=== PATIENT | male | born 1940 | race Caucasian/White ===

== ENCOUNTER → 2022-04-21 | Outpatient (CLI) | payer OTHER ==
[2022-04-21 12:38] LABS: Hematocrit 41.5 % (41.0-53.0); Hemoglobin 13.5 g/dL (13.5-17.5); Mean Corpuscular Hemoglobin 28.2 pg (28.0-32.0); Mean Corpuscular Hgb Conc. 32.4 g/dL (32.0-36.0); Mean Corpuscular Volume 86.8 fL (80.0-100.0); Red Blood Cells 4.78 10^6/uL (4.5-5.90); Red Cell Distribution Width 15.2 % (11.8-14.3); White Blood Cell 8.1 10^3/uL (4.4-10.8)
[2022-04-21 12:45] LABS: Basophils % (manual) 0 (0.0-2.0); Blast Cells 0; Promyelocytes % 0
[2022-04-21 12:51] LABS: Urine Bacteria MANY /hpf (None Seen); Urine Blood TRACE /uL (Negative); Urine Specific Gravity 1.012 (1.001-1.035); Urine WBC 735 /hpf (0 - 3); Urine WBC Clumps PRESENT /hpf (None Seen)
[2022-04-21 13:30] LABS: Albumin 2.8 g/dL (3.4-5.0); Potassium 4.1 mmol/L (3.5-5.1)
[2022-04-21 13:39] LABS: BUN/Creatinine Ratio 32.4; Bilirubin, Total 0.5 mg/dL (0.2-1.0); Calcium 9.6 mg/dL (8.5-10.1); Total Protein 7.6 g/dL (6.4-8.2)
[2022-04-21 14:28] LABS: Band Neutrophils % (manual) 8; Eosinophils % (manual) 3 (0-7); Lymphocytes % (manual) 20 (10.0-50.0); Metamyelocytes % 1; Monocytes % (manual) 3 (0-12); Myelocytes % 1; Reactive Lymphocytes 4
== END | disposition home or self-care (01) ==
LOC: LAB 12:17
PROVIDERS: ATTEND Internal Medicine Hematology & Oncology
DX: N40.1 Benign prostatic hyperplasia with lower urinary tract symptoms (principal); I10 Essential (primary) hypertension; E11.40 Type 2 diabetes mellitus with diabetic neuropathy, unspecified; E11.69 Type 2 diabetes mellitus with other specified complication; Z91.81 History of falling
CPT/HCPCS: 36415; 80053; 80061; 81001; 84439; 84443; 85007; 85027

== ENCOUNTER → 2022-07-23 | Outpatient (CLI) | payer OTHER ==
[2022-07-23 10:00] LABS: Basophils # (auto) 0.1 10 ^3/uL (0-0.2); Basophils % (auto) 0.6 % (0.0-2.0); Eosinophils # (auto) 0.5 10 ^3/uL (0-0.8); Eosinophils % (auto) 4.8 % (0.0-7.0); Hematocrit 39.1 % (41.0-53.0); Hemoglobin 12.6 g/dL (13.5-17.5); Lymphocytes # (auto) 2.4 10 ^3/uL (0.4-5.4); Lymphocytes % (auto) 25.1 % (10.0-50.0); Mean Corpuscular Hemoglobin 28.1 pg (28.0-32.0); Mean Corpuscular Hgb Conc. 32.3 g/dL (32.0-36.0); Monocytes # (auto) 0.7 10 ^3/uL (0-1.3); Monocytes % (auto) 7.2 % (0.0-12.0); Neutrophils % (auto) 62.3 % (37.0-80.0); Nucleated Red Blood Cells % 0.1 %; Red Blood Cells 4.49 10^6/uL (4.5-5.90); Red Cell Distribution Width 13.7 % (11.8-14.3); White Blood Cell 9.6 10^3/uL (4.4-10.8)
[2022-07-23 10:03] LABS: Urine Bacteria NONE SEEN /hpf (None Seen); Urine Blood 1+ /uL (Negative); Urine Specific Gravity 1.019 (1.001-1.035); Urine WBC 2899 /hpf (0 - 3); Urine WBC Clumps PRESENT /hpf (None Seen)
[2022-07-23 10:26] LABS: Albumin 2.9 g/dL (3.4-5.0); Calcium 9.2 mg/dL (8.5-10.1); Potassium 4.3 mmol/L (3.5-5.1)
[2022-07-23 10:30] LABS: BUN/Creatinine Ratio 22.3 (10.0-20.0)
[2022-07-23 10:31] LABS: Bilirubin, Total 0.2 mg/dL (0.2-1.0); Total Protein 7.4 g/dL (6.4-8.2)
== END | disposition home or self-care (01) ==
LOC: LAB 09:36
PROVIDERS: ATTEND Internal Medicine Hematology & Oncology
DX: E11.22 Type 2 diabetes mellitus with diabetic chronic kidney disease (principal); N18.32 Chronic kidney disease, stage 3b; E11.620 Type 2 diabetes mellitus with diabetic dermatitis; E78.5 Hyperlipidemia, unspecified; N40.1 Benign prostatic hyperplasia with lower urinary tract symptoms
CPT/HCPCS: 36415; 80053; 81001; 83036; 85025

== ENCOUNTER → 2022-12-09 | Outpatient (CLI) | payer OTHER ==
[2022-12-09 08:11] LABS: Basophils # (auto) 0.1 10 ^3/uL (0-0.2); Basophils % (auto) 0.6 % (0.0-2.0); Eosinophils # (auto) 0 10 ^3/uL (0-0.8); Eosinophils % (auto) 0.3 % (0.0-7.0); Hematocrit 41.8 % (41.0-53.0); Hemoglobin 13.6 g/dL (13.5-17.5); Lymphocytes # (auto) 2.5 10 ^3/uL (0.4-5.4); Mean Corpuscular Hemoglobin 28.5 pg (28.0-32.0); Mean Corpuscular Hgb Conc. 32.6 g/dL (32.0-36.0); Mean Corpuscular Volume 87.4 fL (80.0-100.0); Monocytes # (auto) 1.5 10 ^3/uL (0-1.3); Monocytes % (auto) 11.5 % (0.0-12.0); Neutrophils # (auto) 8.6 10 ^3/uL (1.6-8.6); Neutrophils % (auto) 67.6 % (37.0-80.0); Red Blood Cells 4.79 10^6/uL (4.5-5.90); Red Cell Distribution Width 14.2 % (11.8-14.3); White Blood Cell 12.7 10^3/uL (4.4-10.8)
[2022-12-09 08:20] LABS: Urine Bacteria MANY /hpf (None Seen); Urine Blood 2+ /uL (Negative); Urine Clarity CLOUDY (Clear); Urine Color Yellow (Yellow); Urine Protein, UAD 2+ (Negative); Urine Specific Gravity 1.018 (1.001-1.035); Urine Urobilinogen Normal (Negative); Urine WBC 3018 /hpf (0 - 3); Urine WBC Clumps PRESENT /hpf (None Seen)
[2022-12-09 08:41] LABS: Alanine Aminotransferase 13 U/L (7-40); Albumin 4.3 g/dL (3.2-4.8); Alkaline Phosphatase 33 U/L (46-116); Anion Gap 10 (5-15); Aspartate Aminotransferase 20 U/L (13-40); BUN/Creatinine Ratio 14.2 (10.0-20.0); Blood Urea Nitrogen 35 mg/dL (9-23); Calcium 9.2 mg/dL (8.5-10.1); Carbon Dioxide 22 mmol/L (20-30); Chloride 108 mmol/L (98-107); Glucose 165 mg/dL (74-106); LDL Cholesterol 76 mg/dL (< 100); Potassium 4.3 mmol/L (3.5-5.1); Sodium 140 mmol/L (136-145); Triglycerides 137 mg/dL (< 150)
[2022-12-09 08:42] LABS: Bilirubin, Total 0.8 mg/dL (0.2-1.0); Cholesterol 126 mg/dL (< 200); HDL Cholesterol 25 mg/dL (40-59)
[2022-12-09 09:03] LABS: Creatinine, Urine 111.14 mg/dL (30.0-125.0)
== END | disposition home or self-care (01) ==
LOC: LAB 08:01
PROVIDERS: ATTEND Internal Medicine
DX: I10 Essential (primary) hypertension (principal); E11.9 Type 2 diabetes mellitus without complications; E78.5 Hyperlipidemia, unspecified
CPT/HCPCS: 36415; 80053; 80061; 81001; 82043; 82570; 85025

== ENCOUNTER → 2023-02-01 | Outpatient (CLI) | payer OTHER ==
[2023-02-01 08:37] LABS: Basophils # (auto) 0.1 10 ^3/uL (0-0.2); Basophils % (auto) 0.8 % (0.0-2.0); Eosinophils # (auto) 0.4 10 ^3/uL (0-0.8); Eosinophils % (auto) 3.3 % (0.0-7.0); Hematocrit 43.4 % (41.0-53.0); Hemoglobin 14.2 g/dL (13.5-17.5); Lymphocytes # (auto) 2.3 10 ^3/uL (0.4-5.4); Lymphocytes % (auto) 21.1 % (10.0-50.0); Mean Corpuscular Hemoglobin 28.8 pg (28.0-32.0); Mean Corpuscular Hgb Conc. 32.7 g/dL (32.0-36.0); Mean Corpuscular Volume 87.9 fL (80.0-100.0); Monocytes # (auto) 1.1 10 ^3/uL (0-1.3); Monocytes % (auto) 10.6 % (0.0-12.0); Neutrophils # (auto) 6.9 10 ^3/uL (1.6-8.6); Neutrophils % (auto) 64.2 % (37.0-80.0); Nucleated Red Blood Cells % 0.1 %; Red Blood Cells 4.93 10^6/uL (4.5-5.90); Red Cell Distribution Width 14.8 % (11.8-14.3); White Blood Cell 10.7 10^3/uL (4.4-10.8)
[2023-02-01 09:09] LABS: Urine Bacteria MANY /hpf (None Seen); Urine Blood 1+ /uL (Negative); Urine Clarity CLOUDY (Clear); Urine Color Yellow (Yellow); Urine Protein, UAD 1+ (Negative); Urine Specific Gravity 1.018 (1.001-1.035); Urine Urobilinogen Normal (Negative); Urine WBC 2348 /hpf (0 - 3); Urine WBC Clumps PRESENT /hpf (None Seen); Urine pH 5.5 (5.0-8.0)
[2023-02-01 09:49] LABS: Anion Gap 11 (5-15); Carbon Dioxide 23 mmol/L (20-30); Chloride 107 mmol/L (98-107); Potassium 4.4 mmol/L (3.5-5.1); Sodium 141 mmol/L (136-145)
[2023-02-01 09:50] LABS: Calcium 9.7 mg/dL (8.5-10.1)
[2023-02-01 09:55] LABS: BUN/Creatinine Ratio 17.1 (10.0-20.0); Blood Urea Nitrogen 45 mg/dL (9-23); Glucose 209 mg/dL (74-106)
== END | disposition home or self-care (01) ==
LOC: LAB 08:17
PROVIDERS: ATTEND Internal Medicine
DX: E11.22 Type 2 diabetes mellitus with diabetic chronic kidney disease (principal); N18.4 Chronic kidney disease, stage 4 (severe); N39.0 Urinary tract infection, site not specified
CPT/HCPCS: 36415; 80048; 81001; 85025

== ENCOUNTER → 2023-02-03 | Outpatient (CLI) | payer OTHER ==
[2023-02-03 11:32] LABS: Urine Bacteria MANY /hpf (None Seen); Urine Blood TRACE /uL (Negative); Urine Clarity HAZY (Clear); Urine Color Yellow (Yellow); Urine Mucus FEW (None Seen); Urine Protein, UAD 1+ (Negative); Urine Specific Gravity 1.015 (1.001-1.035); Urine Urobilinogen Normal (Negative); Urine WBC 547 /hpf (0 - 3); Urine WBC Clumps PRESENT /hpf (None Seen); Urine pH 5.5 (5.0-8.0)
[2023-02-03 11:58] LABS: Erythrocyte Sedimentation Rate 47 mm/hr (0-20)
== END | disposition home or self-care (01) ==
LOC: LAB 10:38
PROVIDERS: ATTEND Internal Medicine
DX: N18.4 Chronic kidney disease, stage 4 (severe) (principal); N39.0 Urinary tract infection, site not specified
CPT/HCPCS: 36415; 81001; 84550; 85652; 87086

== ENCOUNTER 2023-07-12 14:46 | Emergency (ER) | payer OTHER ==
[~2023-07-12] VITALS: Ht 185.4 cm; Wt 94.6 kg
[2023-07-12] MEDS: TETANUS-DIPTH-ACEL PERTUSSIS 0.5ML SYR Tdap IM ONE (20:15)
[2023-07-12] MEDS ORDERED: CEPH500C PO (20:19)
[2023-07-12] MEDS ORDERED: ACE3T PO (20:19)
[2023-07-12] MEDS ORDERED: CLIN1CAP70 PO (20:19)
[2023-07-12 21:00] VITALS: BP 134/71; PULSE 96; RESP 18; O2SAT 97
[2023-07-12] MEDS: cefTRIAXone SOD 1,000 MG VL IM ONE (21:02)
[2023-07-12 21:03] VITALS: TEMP 97.5
[2023-07-12] MEDS: ACETAMINOPHEN 325 MG TAB PO ONE (21:03)
== END 2023-07-12 21:07 | disposition home or self-care (01) ==
LOC: ER 14:46
DX: L03.031 Cellulitis of right toe (principal); E11.9 Type 2 diabetes mellitus without complications; E78.5 Hyperlipidemia, unspecified; Z98.890 Other specified postprocedural states; Z79.899 Other long term (current) drug therapy
CPT/HCPCS: 73630; 90471; 90715; 96372; 99284; J0696

== ENCOUNTER → 2023-07-15 | Outpatient (CLI) | payer OTHER ==
[~2023-07-15] MED LIST: ACE3T PO; CEPH500C PO; CLIN1CAP70 PO
== END | disposition home or self-care (01) ==
LOC: XYW 07:51
PROVIDERS: ATTEND Internal Medicine
DX: I35.8 Other nonrheumatic aortic valve disorders (principal); I51.89 Other ill-defined heart diseases; I95.1 Orthostatic hypotension
CPT/HCPCS: 93306

== ENCOUNTER → 2023-08-31 | Outpatient (CLI) | payer OTHER | END | disposition home or self-care (01) | LOC: LAB 13:59 | PROVIDERS: ATTEND Internal Medicine | DX: E11.21 Type 2 diabetes mellitus with diabetic nephropathy (principal); E11.22 Type 2 diabetes mellitus with diabetic chronic kidney disease; N18.30 Chronic kidney disease, stage 3 unspecified; D63.1 Anemia in chronic kidney disease; R80.9 Proteinuria, unspecified; E21.3 Hyperparathyroidism, unspecified; M10.9 Gout, unspecified; E55.9 Vitamin D deficiency, unspecified | CPT/HCPCS: 87086 ==

== ENCOUNTER 2023-09-04 08:46 | Emergency (ER) | payer OTHER ==
[~2023-09-04] VITALS: Ht 177.8 cm; Wt 97.4 kg
[2023-09-04 09:18] LABS: Urine Bacteria MANY /hpf (None Seen); Urine Blood 2+ /uL (Negative); Urine Clarity Cloudy (Clear); Urine Color Yellow (Yellow); Urine Protein, UAD 1+ (Negative); Urine Specific Gravity 1.012 (1.001-1.035); Urine Urobilinogen Normal (Negative); Urine WBC 3180 /hpf (0 - 3); Urine WBC Clumps PRESENT /hpf (None Seen)
[2023-09-04 09:22] VITALS: BP 148/62; PULSE 88; RESP 16; TEMP 98.7; O2SAT 98
[2023-09-04] MEDS: cefTRIAXone SOD 1,000 MG VL IM ONE (09:36)
[2023-09-04 09:39] LABS: Basophils # (auto) 0.1 10 ^3/uL (0-0.2); Basophils % (auto) 1.2 % (0.0-2.0); Eosinophils # (auto) 0.4 10 ^3/uL (0-0.8); Eosinophils % (auto) 4.2 % (0.0-7.0); Hematocrit 39.7 % (41.0-53.0); Hemoglobin 12.9 g/dL (13.5-17.5); Lymphocytes # (auto) 2.4 10 ^3/uL (0.4-5.4); Lymphocytes % (auto) 28.9 % (10.0-50.0); Mean Corpuscular Hemoglobin 28.6 pg (28.0-32.0); Mean Corpuscular Hgb Conc. 32.6 g/dL (32.0-36.0); Mean Corpuscular Volume 87.7 fL (80.0-100.0); Monocytes # (auto) 0.6 10 ^3/uL (0-1.3); Monocytes % (auto) 7.1 % (0.0-12.0); Neutrophils # (auto) 4.9 10 ^3/uL (1.6-8.6); Neutrophils % (auto) 58.6 % (37.0-80.0); Red Blood Cells 4.52 10^6/uL (4.5-5.90); Red Cell Distribution Width 15.4 % (11.8-14.3); White Blood Cell 8.4 10^3/uL (4.4-10.8)
[2023-09-04 09:47] LABS: Chloride 110 mmol/L (98-107); Sodium 141 mmol/L (136-145)
[2023-09-04 09:48] LABS: Anion Gap 8 (5-15); Calcium 8.9 mg/dL (8.5-10.1); Carbon Dioxide 23 mmol/L (20-30)
[2023-09-04 09:53] LABS: BUN/Creatinine Ratio 16.3 (10.0-20.0); Blood Urea Nitrogen 39 mg/dL (9-23); Glucose 94 mg/dL (74-106)
[2023-09-04] MEDS ORDERED: BACDST PO (09:58)
== END 2023-09-04 10:01 | disposition home or self-care (01) ==
LOC: ER 08:46
DX: N39.0 Urinary tract infection, site not specified (principal); Z79.1 Long term (current) use of non-steroidal anti-inflammatories (NSAID); Z79.899 Other long term (current) drug therapy
CPT/HCPCS: 36415; 80048; 81001; 85025; 87086; 96372; 99283; J0696; 87088; 87186

== ENCOUNTER → 2023-09-20 | Outpatient (CLI) | payer OTHER ==
[~2023-09-20] MED LIST changes: +BACDST PO
[2023-09-20 08:38] LABS: Urine Bacteria None Seen /hpf (None Seen)
[2023-09-20 09:01] LABS: Basophils # (auto) 0.1 10 ^3/uL (0-0.2); Basophils % (auto) 0.9 % (0.0-2.0); Eosinophils # (auto) 0.4 10 ^3/uL (0-0.8); Eosinophils % (auto) 6.1 % (0.0-7.0); Hematocrit 39.6 % (41.0-53.0); Hemoglobin 12.8 g/dL (13.5-17.5); Lymphocytes # (auto) 2.2 10 ^3/uL (0.4-5.4); Lymphocytes % (auto) 32.4 % (10.0-50.0); Mean Corpuscular Hemoglobin 28.9 pg (28.0-32.0); Mean Corpuscular Hgb Conc. 32.4 g/dL (32.0-36.0); Monocytes # (auto) 0.5 10 ^3/uL (0-1.3); Monocytes % (auto) 7.9 % (0.0-12.0); Neutrophils # (auto) 3.6 10 ^3/uL (1.6-8.6); Neutrophils % (auto) 52.7 % (37.0-80.0); Red Blood Cells 4.45 10^6/uL (4.5-5.90); Red Cell Distribution Width 15.1 % (11.8-14.3); White Blood Cell 6.9 10^3/uL (4.4-10.8)
[2023-09-20 09:02] LABS: Urine Blood Negative /uL (Negative); Urine Clarity Clear (Clear); Urine Color Light-Yellow (Yellow); Urine Protein, UAD Negative (Negative); Urine Specific Gravity 1.011 (1.001-1.035); Urine Urobilinogen Normal (Negative); Urine WBC 14 /hpf (0 - 3); Urine pH 5.5 (5.0-9.0)
[2023-09-20 09:18] LABS: Potassium 4.5 mmol/L (3.5-5.1)
[2023-09-20 09:19] LABS: Calcium 9.7 mg/dL (8.7-10.4)
[2023-09-20 09:22] LABS: Protein, Urine 13.6 mg/dL (0.0-11.9)
[2023-09-20 09:24] LABS: BUN/Creatinine Ratio 20.1 (10.0-20.0)
[2023-09-20 09:25] LABS: Albumin 4.1 g/dL (3.2-4.8); Creatinine, Urine 60.71 mg/dL (30.0-125.0); Urine Protein/Creatinine Ratio 0.22
[2023-09-20 09:26] LABS: Phosphorus 4.1 mg/dL (2.4-5.1)
[2023-09-20 10:32] LABS: Uric Acid 7.4 mg/dL (3.7-9.2)
== END | disposition home or self-care (01) ==
LOC: LAB 08:26
PROVIDERS: ATTEND Internal Medicine
DX: E11.21 Type 2 diabetes mellitus with diabetic nephropathy (principal); E55.9 Vitamin D deficiency, unspecified; E11.22 Type 2 diabetes mellitus with diabetic chronic kidney disease; M10.9 Gout, unspecified; E21.3 Hyperparathyroidism, unspecified; R80.9 Proteinuria, unspecified; N39.0 Urinary tract infection, site not specified; D63.1 Anemia in chronic kidney disease; N18.30 Chronic kidney disease, stage 3 unspecified
CPT/HCPCS: 36415; 80069; 81001; 82306; 82570; 83970; 84156; 84550; 85025

== ENCOUNTER → 2023-09-23 | Outpatient (CLI) | payer OTHER ==
[2023-09-23 12:33] LABS: Chloride 112 mmol/L (98-107); Potassium 4.6 mmol/L (3.5-5.1); Sodium 142 mmol/L (136-145)
[2023-09-23 12:34] LABS: Anion Gap 7 (5-15); Calcium 9.2 mg/dL (8.7-10.4); Carbon Dioxide 23 mmol/L (20-30)
[2023-09-23 12:36] LABS: Erythrocyte Sedimentation Rate 9 mm/hr (0-20)
[2023-09-23 12:38] LABS: Uric Acid 7.4 mg/dL (3.7-9.2)
[2023-09-23 12:39] LABS: BUN/Creatinine Ratio 17.8 (10.0-20.0); Blood Urea Nitrogen 38 mg/dL (9-23); Glucose 102 mg/dL (74-106)
== END | disposition home or self-care (01) ==
LOC: LAB 11:29
PROVIDERS: ATTEND Internal Medicine
DX: E11.22 Type 2 diabetes mellitus with diabetic chronic kidney disease (principal); N18.4 Chronic kidney disease, stage 4 (severe); R35.1 Nocturia
CPT/HCPCS: 36415; 80048; 83036; 84550; 85652

== ENCOUNTER → 2023-11-23 | Outpatient (CLI) | payer OTHER ==
[2023-11-23 09:17] LABS: Anion Gap 8 (5-15); Carbon Dioxide 24 mmol/L (20-30); Chloride 110 mmol/L (98-107); Potassium 4.5 mmol/L (3.5-5.1); Sodium 142 mmol/L (136-145)
[2023-11-23 09:18] LABS: Calcium 9.9 mg/dL (8.7-10.4)
[2023-11-23 09:23] LABS: Blood Urea Nitrogen 54 mg/dL (9-23); Glucose 110 mg/dL (74-106)
== END | disposition home or self-care (01) ==
LOC: LAB 08:21
PROVIDERS: ATTEND Internal Medicine
DX: N18.30 Chronic kidney disease, stage 3 unspecified (principal)
CPT/HCPCS: 36415; 80048

== ENCOUNTER → 2024-01-25 | Outpatient (CLI) | payer OTHER ==
[2024-01-25 12:10] LABS: Basophils # (auto) 0.1 10 ^3/uL (0-0.2); Basophils % (auto) 0.9 % (0.0-2.0); Eosinophils # (auto) 0.4 10 ^3/uL (0-0.8); Eosinophils % (auto) 4.7 % (0.0-7.0); Hematocrit 40.5 % (41.0-53.0); Hemoglobin 13.4 g/dL (13.5-17.5); Lymphocytes # (auto) 2.8 10 ^3/uL (0.4-5.4); Lymphocytes % (auto) 34.6 % (10.0-50.0); Mean Corpuscular Hemoglobin 29.5 pg (28.0-32.0); Mean Corpuscular Hgb Conc. 33.1 g/dL (32.0-36.0); Mean Corpuscular Volume 89.2 fL (80.0-100.0); Monocytes # (auto) 0.7 10 ^3/uL (0-1.3); Neutrophils # (auto) 4.2 10 ^3/uL (1.6-8.6); Neutrophils % (auto) 51.8 % (37.0-80.0); Platelet Count (auto) 205 10^3/uL (140-450); Red Blood Cells 4.54 10^6/uL (4.5-5.90); Red Cell Distribution Width 14.1 % (11.8-14.3); White Blood Cell 8.2 10^3/uL (4.4-10.8)
[2024-01-25 12:16] LABS: Urine Bacteria MOD /hpf (None Seen); Urine Blood 1+ /uL (Negative); Urine Clarity Ex.Turbid (Clear); Urine Protein, UAD 1+ (Negative); Urine Specific Gravity 1.012 (1.001-1.035); Urine Urobilinogen Normal (Negative); Urine WBC 1159 /hpf (0 - 3); Urine WBC Clumps PRESENT /hpf (None Seen)
[2024-01-25 12:20] LABS: Urine Color Light-Yellow (Yellow)
[2024-01-25 13:08] LABS: Albumin 4.2 g/dL (3.2-4.8); Alkaline Phosphatase 35 U/L (46-116); Anion Gap 9 (5-15); Aspartate Aminotransferase 20 U/L (13-40); BUN/Creatinine Ratio 15.3 (10.0-20.0); Blood Urea Nitrogen 47 mg/dL (9-23); Calcium 10.4 mg/dL (8.7-10.4); Carbon Dioxide 24 mmol/L (20-31); Chloride 108 mmol/L (98-107); Glucose 143 mg/dL (74-106); Potassium 5.4 mmol/L (3.5-5.1); Sodium 141 mmol/L (136-145)
[2024-01-25 13:09] LABS: Bilirubin, Total 0.5 mg/dL (0.2-1.0); Total Protein 6.9 g/dL (5.7-8.2)
[2024-01-25 13:19] LABS: Creatinine, Urine 89.25 mg/dL (30.0-125.0)
[2024-01-25 14:02] LABS: Uric Acid 8.1 mg/dL (3.7-9.2)
[2024-01-25 14:05] LABS: Alanine Aminotransferase 16 U/L (7-40)
== END | disposition home or self-care (01) ==
LOC: LAB 11:23
PROVIDERS: ATTEND Internal Medicine
DX: E11.22 Type 2 diabetes mellitus with diabetic chronic kidney disease (principal); N18.30 Chronic kidney disease, stage 3 unspecified; E11.21 Type 2 diabetes mellitus with diabetic nephropathy; D63.1 Anemia in chronic kidney disease; N39.0 Urinary tract infection, site not specified; R80.9 Proteinuria, unspecified; E21.3 Hyperparathyroidism, unspecified; M10.9 Gout, unspecified; E55.9 Vitamin D deficiency, unspecified
CPT/HCPCS: 36415; 80053; 81001; 82043; 82306; 82570; 83036; 83970; 84550; 85025

== ENCOUNTER → 2024-02-23 | Outpatient (CLI) | payer OTHER ==
[2024-02-23 11:32] LABS: Sodium 143 mmol/L (136-145)
[2024-02-23 11:33] LABS: Anion Gap 8 (5-15); Calcium 9.8 mg/dL (8.7-10.4); Carbon Dioxide 24 mmol/L (20-31)
[2024-02-23 11:36] LABS: Chloride 111 mmol/L (98-107)
[2024-02-23 11:38] LABS: BUN/Creatinine Ratio 17.6 (10.0-20.0); Blood Urea Nitrogen 42 mg/dL (9-23); Glucose 95 mg/dL (74-106)
== END | disposition home or self-care (01) ==
LOC: LAB 10:44
PROVIDERS: ATTEND Internal Medicine
DX: N18.4 Chronic kidney disease, stage 4 (severe) (principal)
CPT/HCPCS: 36415; 80048

== ENCOUNTER → 2024-04-25 | Outpatient (CLI) | payer OTHER ==
[2024-04-25 12:58] LABS: Basophils # (auto) 0.1 10 ^3/uL (0-0.2); Basophils % (auto) 0.6 % (0.0-2.0); Eosinophils # (auto) 0.3 10 ^3/uL (0-0.8); Eosinophils % (auto) 3.6 % (0.0-7.0); Hematocrit 43.9 % (41.0-53.0); Hemoglobin 14.2 g/dL (13.5-17.5); Lymphocytes # (auto) 2.5 10 ^3/uL (0.4-5.4); Lymphocytes % (auto) 28.3 % (10.0-50.0); Mean Corpuscular Hemoglobin 28.9 pg (28.0-32.0); Mean Corpuscular Hgb Conc. 32.4 g/dL (32.0-36.0); Mean Corpuscular Volume 89.2 fL (80.0-100.0); Monocytes # (auto) 0.7 10 ^3/uL (0-1.3); Monocytes % (auto) 7.8 % (0.0-12.0); Neutrophils # (auto) 5.2 10 ^3/uL (1.6-8.6); Neutrophils % (auto) 59.7 % (37.0-80.0); Nucleated Red Blood Cells % 0.3 %; Platelet Count (auto) 225 10^3/uL (140-450); Red Blood Cells 4.93 10^6/uL (4.5-5.90); Red Cell Distribution Width 13.3 % (11.8-14.3); White Blood Cell 8.7 10^3/uL (4.4-10.8)
[2024-04-25 13:02] LABS: Urine Bacteria MANY /hpf (None Seen); Urine Blood TRACE /uL (Negative); Urine Clarity Turbid (Clear); Urine Color Light-Yellow (Yellow); Urine Mucus FEW (None Seen); Urine Protein, UAD TRACE (Negative); Urine Specific Gravity 1.014 (1.001-1.035); Urine Squamous Epithelial Cell FEW /hpf (<5); Urine Urobilinogen Normal (Negative); Urine WBC 453 /HPF (0-3); Urine WBC Clumps PRESENT /hpf (None Seen); Urine pH 5.5 (5.0-9.0)
[2024-04-25 13:36] LABS: Alanine Aminotransferase 17 U/L (7-40); Alkaline Phosphatase 48 U/L (46-116); Anion Gap 9 (5-15); Aspartate Aminotransferase 32 U/L (13-40); BUN/Creatinine Ratio 26.2 (10.0-20.0); Carbon Dioxide 27 mmol/L (20-31); Chloride 106 mmol/L (98-107); GFR African American 30 mL/min; GFR Non-African American 25 mL/min; Glucose 98 mg/dL (74-106); Potassium 4.5 mmol/L (3.5-5.1); Sodium 142 mmol/L (136-145)
[2024-04-25 13:37] LABS: Albumin 4.6 g/dL (3.2-4.8); Bilirubin, Total 0.4 mg/dL (0.2-1.0); Phosphorus 3.9 mg/dL (2.4-5.1)
[2024-04-25 13:47] LABS: Blood Urea Nitrogen 68 mg/dL (9-23); Calcium 10.5 mg/dL (8.7-10.4)
[2024-04-25 16:16] LABS: Creatinine, Urine 77.76 mg/dL (30.0-125.0)
== END | disposition home or self-care (01) ==
LOC: LAB 11:56
PROVIDERS: ATTEND Internal Medicine
DX: E11.22 Type 2 diabetes mellitus with diabetic chronic kidney disease (principal); N18.30 Chronic kidney disease, stage 3 unspecified; E11.21 Type 2 diabetes mellitus with diabetic nephropathy; N39.0 Urinary tract infection, site not specified; R80.9 Proteinuria, unspecified; E21.3 Hyperparathyroidism, unspecified; M10.9 Gout, unspecified; E55.9 Vitamin D deficiency, unspecified; D63.1 Anemia in chronic kidney disease
CPT/HCPCS: 36415; 80053; 80069; 81001; 82043; 82306; 82570; 83970; 84550; 85025

== ENCOUNTER 2024-04-29 20:28 | Inpatient (IN) | payer OTHER ==
[~2024-04-29] VITALS: Ht 182.9 cm; Wt 97.8 kg
[~2024-04-29 20:28] MED LIST changes: +ATEN-60 PO; +FENO160T PO; +GABA-1250 PO; +GLIP5TAB21 PO; +INSUINJ37 SC; +SIMV40TA18 PO
--- NOTE | 2024-04-29 20:50 | ED.PDOC ---
History of Present Illness HPI Comments 83 y/o M is [id number] ambulance for c/o non-radiating, substernal chest pain, today. Patient endorses on sudden and unprovoked onset of pressure-like pain that began an hour ago prior to ED arrival, with associated nausea. En route, patient was given NTG, with minimal improvement to pain. He denies having any recent strenuous activities, stressors, injuries, or sick contact. Patient denies having any shortness of breath, dizziness, lightheadedness, vomiting, fever, or chills at this time. Chief Complaint: Chest Pain Time Seen by MD: 20:40 Primary Care Provider: RICHARD Reviewed Notes: Nurses Notes, Cleater Notes, Medications, Allergies Allergies: Coded Allergies: NO KNOWN ALLERGIES (Unverified , 07/12/23) Home Meds Active Scripts Sulfamethoxazole W/Trimethopri (Bactrim Ds Tablet) 1 Tab Tb, 1 TAB PO BID for 10 Days, #20 TAB Prov:PABLITO LUCAS 09/04/23 Acetaminophen W/ Codeine (Tylenol W/Cod #3) 1 Tab Tb, 1 TAB PO QIDP, #10 TAB 0 Refills Prov:MANUEL SAMS 07/12/23 Clindamycin Hcl (Clindamycin Hcl) 300 Mg Cap, 1 CAP PO TID for 7 Days, #21 CAP 0 Refills Prov:MANUEL SAMS 07/12/23 Cephalexin Monohydrate (Cephalexin) 500 Mg Cap, 1 CAP PO BID for 7 Days, #14 CAP 0 Refills Prov:MANUEL SAMS 07/12/23 Information Source: Patient, Emergency Med Personnel Mode of Arrival: EMS Severity: Moderate Timing: Hours Duration: Since onset Prehospital treatment: 12 Lead EKG, Blueprint Duplicator, NTG Past Medical History PAST MEDICAL HISTORY: CKF, DM, High Lipids, UTI'S Past Medical History (Other): AAA Surgical History: PTCA Family History Family History: Reviewed,noncontributory to illness Social History Smoker: Non-Smoker Alcohol: Denies ETOH Use Drugs: Denies Drug Use Lives In: Home All Other Systems: Reviewed and Negative (negative unless stated in HPI) Physical Exam General Appearance: No Apparent Distress, Normal HEENT: Normal ENT Inspection, Pharynx Normal, TMs Normal Neck: Full Range of Motion, Non-Tender, Normal, Normal Inspection Respiratory: Chest Non-Tender, Lungs Clear, No Accessory Muscle Use, No Respiratory Distress, Normal Breath Sounds Cardiovascular: No Edema, No JVD, No Murmur, No Gallop, Normal Peripheral Pulses, Regular Rate/Rhythm Breast Exam: Deferred Gastrointestinal: No Organomegaly, Non Tender, No Pulsatile Mass, Normal Bowel Sounds, Soft Genitalia: Deferred Pelvic: Deferred Rectal: Deferred Extremities: No calf tenderness, Normal capillary refill, Normal inspection, Normal range of motion, Non-tender, No pedal edema Musculoskeletal : Apperance: Normal Neurologic: Alert, development geologist II-XII nml as Tested, No Motor Deficits, Normal Affect, Normal Mood, No Sensory Deficits Cerebellar Function: Normal Reflexes: Normal Skin: Dry, Normal Color, Warm Lymphatic: No Adenopathy Was a procedure done? Was a procedure done?: No EKG EKG : [place]: Normal Cardiac Rhythm: NSR Block: None Hypertrophy: None ST: Inf (inferior ST depressions) Differential Dx Considerations may include: ID, ACS, PE, musculoskeletal pain, costochondritis, pericarditis, angina, anxiety X-Ray, Labs, Meds, VS Vital Signs Date Time Temp Pulse Resp B/P (MAP) Pulse Ox O2 Delivery O2 Flow Rate FiO2 04/29/24 20:32 60 04/29/24 20:31 98.6 64 16 164/82 (109) 96 Lab Test 04/29/24 20:45 Range/Units White Blood Count 8.8 4.4-10.8 10^3/uL Red Blood Count 4.83 4.5-5.90 10^6/uL Hemoglobin 14.2 13.5-17.5 g/dL Hematocrit 42.9 41.0-53.0 % Mean Corpuscular Volume 88.9 80.0-100.0 fL Mean Corpuscular Hemoglobin 29.5 28.0-32.0 pg Mean Corpuscular Hemoglobin Concent 33.2 32.0-36.0 g/dL Red Cell Distribution Width 13.2 11.8-14.3 % Platelet Count 273 140-450 10^3/uL Mean Platelet Volume 8.5 6.9-10.8 fL Neutrophils (%) (Auto) 58.5 37.0-80.0 % Lymphocytes (%) (Auto) 29.2 10.0-50.0 % Monocytes (%) (Auto) 8.6 0.0-12.0 % Eosinophils (%) (Auto) 2.9 0.0-7.0 % Basophils (%) (Auto) 0.8 0.0-2.0 % Neutrophils # (Auto) 5.2 1.6-8.6 10 ^3/uL Lymphocytes # (Auto) 2.6 0.4-5.4 10 ^3/uL Monocytes # (Auto) 0.8 0-1.3 10 ^3/uL Eosinophils # (Auto) 0.3 0-0.8 10 ^3/uL Basophils # (Auto) 0.1 0-0.2 10 ^3/uL Nucleated Red Blood Cells 0.1 % Prothrombin Time 12.0 H 9.3-11.8 sec Prothrombin Time INR 1.15 0.9-1.15 Activated Partial Thromboplast Time 26.6 24.5-34.5 SEC Sodium Level 139 136-145 mmol/L Potassium Level 4.9 3.5-5.1 mmol/L Chloride Level 105 98-107 mmol/L Carbon Dioxide Level 24 20-31 mmol/L Anion Gap 10 5-15 Blood Urea Nitrogen 50 H 9-23 mg/dL Creatinine 2.50 H 0.700-1.30 mg/dL Glomerular Filtration Rate Calc 25 >90 mL/min BUN/Creatinine Ratio 20.0 10.0-20.0 Serum Glucose 195 H 74-106 mg/dL Calcium Level 10.6 H 8.7-10.4 mg/dL Total Bilirubin 0.5 0.2-1.0 mg/dL Aspartate Amino Transferase (AST) 48 H 13-40 U/L Alanine Aminotransferase (ALT) 24 7-40 U/L Alkaline Phosphatase 50 46-116 U/L Troponin I High Sensitivity 507 *H </=54 ng/L Total Protein 7.3 5.7-8.2 g/dL Albumin 4.6 3.2-4.8 g/dL Time of 1ST Reevaluation: 21:10 Reevaluation 1ST: Unchanged Time of 2ND Reevaluation: 21:35 Reevaluation 2ND: Unchanged Consultation: Cardiology Patient Education/Counseling: Diagnosis, Treatment Family Education/Counseling: No Family Present Departure 1 Departure Time of Disposition: 21:35 Impression: Primary Impression: Acute coronary syndrome with high troponin Disposition: 09 ADMITTED INPATIENT Admit to: Tele Condition: Guarded Discharged With: Self Comments Chest Pain - NSTEMI Chief Complaint: Chest pain History of Present Illness: 83-year-old male with known history of coronary artery disease presents via EMS with acute onset of substernal chest pain that began approximately two hours prior to arrival. The pain is described as pressure-like and located substernally. EMS administered nitroglycerin en route with partial improvement in symptoms. Initial EKG demonstrated normal sinus rhythm with mild ST depressions in the inferior leads, without evidence of ST-elevation ID. Initial troponin was significantly elevated at 505. In the ED, patient received aspirin, nitroglycerin paste, and morphine with significant improvement in chest pain. Repeat EKG showed mild improvement in the inferior ST depressions. Review of Systems: Limited due to acute presentation Cardiovascular: Positive for chest pain, as described in HPI Medications: ED Medications: 1. Aspirin 2. Nitroglycerin paste 3. Morphine Lab Results: Troponin: 507 (Elevated) Imaging and Other Relevant Results: EKG #1: Normal sinus rhythm with mild ST depressions in inferior leads, no STEMI EKG #2: Slight improvement in inferior ST depressions Medical Decision Making: Summary Statement: 83-year-old male with history of CAD presenting with acute chest pain, elevated troponin, and EKG changes consistent with NSTEMI Problem List: 1. Non-ST elevation myocardial infarction (NSTEMI) 2. Coronary artery disease Differential Diagnosis: 1. Acute coronary syndrome 2. Unstable angina 3. Stable angina 4. Prinzmetal's angina 5. Aortic dissection ED Course: Patient presented with chest pain, received appropriate ACS protocol medications including aspirin, nitroglycerin, and morphine. Serial EKGs showed improvement in ST changes. Troponin elevation confirmed. Patient stabilized and admission arranged. Assessment and Plan: 1. Non-ST Elevation Myocardial Infarction (NSTEMI): - Admit to telemetry unit for cardiac monitoring - Cardiology consultation - Continue medical management with antiplatelet therapy - Further cardiac workup as inpatient 2. Coronary Artery Disease: - Continue home medications - Risk factor modification Patient is in agreement with plan of care. Billing Information: ICD-10: I21.4 - Non-ST elevation (NSTEMI) myocardial infarction ICD-10: I25.10 - Atherosclerotic heart disease of [place] coronary artery Critical Care Note Critical Care Time?: Yes (45 min-critical care time only) Critical care comment: Total critical care time: Approximately 36 minutes Due to a high probability of clinically significant, life threatening deterioration, the patient required my highest level of preparedness to intervene emergently and I personally spent this critical care time directly and personally managing the patient. This critical care time included obtaining a history; examining the patient; pulse oximetry; ordering and review of studies; arranging urgent treatment with development of a management plan; evaluation of patient's response to treatment; frequent reassessment; and, discussions with ot her providers. This critical care time was performed to assess and manage the high probability of imminent, life-threatening deterioration that could result in multi-organ failure. It was exclusive of separately billable procedures and treating other patients. Stability Stability form required: No Heart Score Heart Score: Heart Score Response (Comments) Value History Moderate Suspicious 1 EKG Normal 0 Age >65 2 Risk Factors >3 or Hx ASHD 2 Troponin >3 x's Normal limit 2 Total 7 I personally scribed for ELMA TODD MD ([email or web address]) on 04/29/24 at 20:50. Electronically submitted by Leonardo Mesa [email or web address]). ELMA TODD MD Apr 29, 2024 20:50
--- NOTE | 2024-04-29 20:56 | DVH ---
CHEST RADIOGRAPH Indication: chest pain Technique: Single frontal view of the chest was obtained COMPARISON: None FINDINGS: Lines and Tubes: None Lungs: No evidence of pulmonary infiltrates or edema. Pleura: No effusion. No pneumothorax. Cardiomediastinal contours: Unremarkable IMPRESSION: No acute disease.
[2024-04-29 20:58] LABS: Basophils # (auto) 0.1 10 ^3/uL (0-0.2); Basophils % (auto) 0.8 % (0.0-2.0); Eosinophils # (auto) 0.3 10 ^3/uL (0-0.8); Eosinophils % (auto) 2.9 % (0.0-7.0); Hematocrit 42.9 % (41.0-53.0); Hemoglobin 14.2 g/dL (13.5-17.5); Lymphocytes # (auto) 2.6 10 ^3/uL (0.4-5.4); Lymphocytes % (auto) 29.2 % (10.0-50.0); Mean Corpuscular Hemoglobin 29.5 pg (28.0-32.0); Mean Corpuscular Hgb Conc. 33.2 g/dL (32.0-36.0); Mean Corpuscular Volume 88.9 fL (80.0-100.0); Monocytes # (auto) 0.8 10 ^3/uL (0-1.3); Monocytes % (auto) 8.6 % (0.0-12.0); Neutrophils # (auto) 5.2 10 ^3/uL (1.6-8.6); Neutrophils % (auto) 58.5 % (37.0-80.0); Nucleated Red Blood Cells % 0.1 %; Platelet Count (auto) 273 10^3/uL (140-450); Red Blood Cells 4.83 10^6/uL (4.5-5.90); Red Cell Distribution Width 13.2 % (11.8-14.3); White Blood Cell 8.8 10^3/uL (4.4-10.8)
[2024-04-29 21:13] LABS: INR 1.15 (0.9-1.15); Partial Thromboplastin Time 26.6 SEC (24.5-34.5)
[2024-04-29 21:16] LABS: Alanine Aminotransferase 24 U/L (7-40); Albumin 4.6 g/dL (3.2-4.8); Alkaline Phosphatase 50 U/L (46-116); Anion Gap 10 (5-15); Carbon Dioxide 24 mmol/L (20-31); Chloride 105 mmol/L (98-107); Potassium 4.9 mmol/L (3.5-5.1); Sodium 139 mmol/L (136-145)
[2024-04-29 21:17] LABS: Bilirubin, Total 0.5 mg/dL (0.2-1.0); Total Protein 7.3 g/dL (5.7-8.2)
[2024-04-29 21:20] LABS: Aspartate Aminotransferase 48 U/L (13-40); Blood Urea Nitrogen 50 mg/dL (9-23); Calcium 10.6 mg/dL (8.7-10.4); Glucose 195 mg/dL (74-106)
--- NOTE | 2024-04-29 21:35 | ECG ---
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
[2024-04-29] MEDS ORDERED: ONDANSETRON HCL 4 MG/2 ML VIAL IV PRN (21:45)
[2024-04-29] MEDS ORDERED: HYDROcodone-ACET 5/325MG TAB PO PRN (21:45)
[2024-04-29] MEDS ORDERED: ACETAMINOPHEN 325 MG TAB PO PRN (21:45)
[2024-04-29] MEDS ORDERED: DEXTROSE (50%) 50ML SYRG IV PRN (21:45)
[2024-04-29] MEDS ORDERED: hydrALAZINE HCL 20 MG/ML VL IV PRN (21:45)
[2024-04-29] MEDS ORDERED: DOCUSATE SOD 100 MG CAP PO PRN (21:45)
[2024-04-29] MEDS: ACCU-CHEK COMFORT CURVE STRIP VI SCH (22:00)
[2024-04-29] MEDS: SODIUM CHLOR 0.9% PF (SALINE LOCK) 10ML VIAL/SYR IV SCH (22:00)
[2024-04-29] MEDS: ASPirin-EC 325mg tab PO ONE (22:19)
[2024-04-29] MEDS: MORPHINE SULFATE 4 MG/ML SYR/VIAL IV ONE (22:19)
[2024-04-29] MEDS: ONDANSETRON HCL 4 MG/2 ML VIAL IV ONE (22:20)
[2024-04-29] MEDS: ATORVASTATIN 20 MG TAB PO SCH (22:20)
[2024-04-29] MEDS: NITROGLYCERIN 2% OINT 1GM PKG TD ONE (22:21)
--- NOTE | 2024-04-29 23:43 | DVHHP2 ---
History of Present Illness Reason for Visit: Acute coronary syndrome with high troponin History of Present Illness The patient is a 83-year-old male with past medical history of DM, AAA, UTIs, hyperlipidemia, and DM who presented to [facility] ED with complaint of substernal chest pain. Patient reports symptoms progressively get worse with nonradiating chest pain, pressure-like in nature, rating 8/10 numeric scale, getting worse that prompted this visit. Patient was seen and evaluated in the ED, laboratory data shows WBC 8.8, platelets 273, sodium 139, potassium 4.9, BUN 50, creatinine 2.50, GFR 25, glucose 195, troponin 507, blood pressure 168/75 trending down to 134/72, heart rate 65, temperature 97.8 F, O2 saturation 98% on room air. Initial EKG demonstrated normal sinus rhythm with mild ST depressions in the inferior leads, without evidence of ST-elevation FL. Initial troponin was significantly elevated at 505. Chest x-ray show no acute disease. Patient was started on heparin drip, please see medication orders section in the computer. On my assessment, patient denies chest pain at this moment, no headache, no dizziness, no diaphoresis, no shortness of breaths, no nausea, no vomiting, no fever, no chills. Patient was admitted for further evaluation and medical management. Past Medical History CKF, DM, High Lipids, UTI'S, AAA Past Surgical History PTCA Family History Reviewed, noncontributory to the management of this case. Past Social History The patient lives at home, denies smoking, alcohol or illicit drugs abuse. Review of Systems Constitutional: Yes: Weakness; No: Fever, Chills, Sweats, Malaise, Other Eyes: No: Pain, Vision change, Conjunctivae inflammation, Eyelid inflammation, Other, Redness ENT: No: Ear pain, Ear discharge, Nose pain, Nose discharge, Nose congestion, Mouth pain, Mouth swelling, Throat pain, Throat swelling, Other Respiratory: No: Cough, Dry, Shortness of breath, SOB with excertion, Wheezing, Hemoptysis, Pleuritic Pain, Sputum, Wheezing, Other Cardiovascular: Chest Pain; No: Palpitations, Orthopnea, Paroxysmal Noc. Dyspnea, Edema, Lt Headedness, Other Gastrointestinal: No: Nausea, Vomiting, Abdominal Pain, Diarrhea, Constipation, Melena, Hematochezia, Other Genitourinary: No Dysuria, No Frequency, No Incontinence, No Hematuria, No Retention, No Other Musculoskeletal: No: other, neck pain, shoulder pain, arm pain, back pain, hand pain, leg pain, foot pain Skin: No: Rash, Lesions, Jaundice, Bruising, Other Neurological: No: Weakness, Numbness, Incoordination, Change in speech, Confusion, Seizures, Other Allergies: Coded Allergies: NO KNOWN ALLERGIES (Unverified , 07/12/23) Medications Current Medications Medications Dose Ordered Sig/[place] Route Start Time Stop Time Status Last Admin Dose Admin Aspirin 81 mg DAILY PO 04/30/24 10:00 Atorvastatin Calcium 20 mg HS PO 04/29/24 22:00 04/29/24 22:20 20 MG Amlodipine Besylate 5 mg DAILY PO 04/30/24 10:00 Hydralazine HCl 10 mg Q6HP PRN IV 04/29/24 21:45 Diagnostic Test (Pha) 1 strip ACHS 04/29/24 22:00 04/29/24 22:00 1 STRIP Insulin Human Regular HS SC 04/29/24 22:00 Insulin Human Regular AC SC 04/30/24 07:00 Dextrose 50 ml UD PRN IV 04/29/24 21:45 Sodium Chloride 10 ml Q8HR IV 04/29/24 22:00 Acetaminophen/ Hydrocodone Bitart 1 tab Q4HP PRN PO 04/29/24 21:45 Ondansetron HCl 4 mg Q4HP PRN IV 04/29/24 21:45 Docusate Sodium 100 mg BIDPRN PRN PO 04/29/24 21:45 Acetaminophen 650 mg Q6HP PRN PO 04/29/24 21:45 Exam Vital Signs Vital Signs Date Time Temp Pulse Resp B/P (MAP) Pulse Ox O2 Delivery O2 Flow Rate FiO2 04/29/24 22:21 160/74 04/29/24 22:19 66 14 04/29/24 21:32 97.8 98 97.8 General Appearance: Alert, Oriented X3, Cooperative, No acute distress HEENT: Atraumatic, PERRLA, EOMI, Mucous membr. moist/pink Respiratory: Clear to auscultation, Normal air movement Cardiovascular: Regular rate, Normal S1, Normal S2, No murmurs Abdominal: Normal bowel sounds, Soft, No tenderness, No hepatospenomegaly, No masses Extremities: No clubbing, No cyanosis, No edema, Normal pulses, No tenderness/swelling Skin: No rashes, No breakdown, No significant lesion Neuro: Normal speech, Normal tone, Sensation intact, Cranial nerves 3-12 NL, Re flexes 2+, Other (Generalized weakness) Psych/Mental Status: Mental status NL, Mood NL Labs/Xrays Labs Test 04/29/24 21:40 04/29/24 20:45 Range/Units Troponin I High Sensitivity 777 *H </=54 ng/L White Blood Count 8.8 4.4-10.8 10^3/uL Red Blood Count 4.83 4.5-5.90 10^6/uL Hemoglobin 14.2 13.5-17.5 g/dL Hematocrit 42.9 41.0-53.0 % Mean Corpuscular Volume 88.9 80.0-100.0 fL Mean Corpuscular Hemoglobin 29.5 28.0-32.0 pg Mean Corpuscular Hemoglobin Concent 33.2 32.0-36.0 g/dL Red Cell Distribution Width 13.2 11.8-14.3 % Platelet Count 273 140-450 10^3/uL Mean Platelet Volume 8.5 6.9-10.8 fL Neutrophils (%) (Auto) 58.5 37.0-80.0 % Lymphocytes (%) (Auto) 29.2 10.0-50.0 % Monocytes (%) (Auto) 8.6 0.0-12.0 % Eosinophils (%) (Auto) 2.9 0.0-7.0 % Basophils (%) (Auto) 0.8 0.0-2.0 % Neutrophils # (Auto) 5.2 1.6-8.6 10 ^3/uL Lymphocytes # (Auto) 2.6 0.4-5.4 10 ^3/uL Monocytes # (Auto) 0.8 0-1.3 10 ^3/uL Eosinophils # (Auto) 0.3 0-0.8 10 ^3/uL Basophils # (Auto) 0.1 0-0.2 10 ^3/uL Nucleated Red Blood Cells 0.1 % Prothrombin Time 12.0 H 9.3-11.8 sec Prothrombin Time INR 1.15 0.9-1.15 Activated Partial Thromboplast Time 26.6 24.5-34.5 SEC Sodium Level 139 136-145 mmol/L Potassium Level 4.9 3.5-5.1 mmol/L Chloride Level 105 98-107 mmol/L Carbon Dioxide Level 24 20-31 mmol/L Anion Gap 10 5-15 Blood Urea Nitrogen 50 H 9-23 mg/dL Creatinine 2.50 H 0.700-1.30 mg/dL Glomerular Filtration Rate Calc 25 >90 mL/min BUN/Creatinine Ratio 20.0 10.0-20.0 Serum Glucose 195 H 74-106 mg/dL Calcium Level 10.6 H 8.7-10.4 mg/dL Total Bilirubin 0.5 0.2-1.0 mg/dL Aspartate Amino Transferase (AST) 48 H 13-40 U/L Alanine Aminotransferase (ALT) 24 7-40 U/L Alkaline Phosphatase 50 46-116 U/L Total Protein 7.3 5.7-8.2 g/dL Albumin 4.6 3.2-4.8 g/dL PATIENT: EDI WALSHACCT: [id number] UNIT: [id number] : 1940 LOC: ER ROOM / BED: / AGE / SEX: 83 / M ADM STATUS: REG ER SERVICE 31 ORDERING PHYSICIAN: ELMA TODD MD PROCEDURE(s): CXRP - CHEST PORTABLE REASON: chest pain ORDER NUMBER(s): [id number], ACCESSION NUMBER(s): [id number] CHEST RADIOGRAPH Indication: chest pain Technique: Single frontal view of the chest was obtained COMPARISON: None FINDINGS: Lines and Tubes: None Lungs: No evidence of pulmonary infiltrates or edema. Pleura: No effusion. No pneumothorax. Cardiomediastinal contours: Unremarkable IMPRESSION: No acute disease. Assessment/Plan Assessment/Plan Generalized weakness Acute on chronic renal failure Hypertensive urgency Acute coronary syndrome with high troponin Plan 1. Admit to telemetry unit 2. Breathing treatment 3. Pain control management 4. Management of fluids and electrolytes 5. Consultation for Cardiology/Nephrology 6. Diagnostic tests chest x-ray 7. DVT prophylaxis-on heparin drip 8. Repeat labs CBC, CMP in a.m. 9. Continue with current medical management 10. Treatment plan discussed with patient and RN. Patient verbalized understanding. Plan discussed with: Patient, Other (RN) My Orders Orders - OKPAN,CAMI O DNP Procedure Category Date Status Time Aspirin Tablet PHA 04/30/24 In Process 10:00 Atorvastatin (Lipitor) PHA 04/29/24 In Process 22:00 Amlodipine Tablet PHA 04/30/24 In Process (Norvasc Tablet) 10:00 Hydralazine Injection PHA 04/29/24 In Process (Apresoline Inject 21:45 Troponin-I Hs LAB 04/30/24 Verified 00:40 Troponin-I Hs LAB 04/30/24 Verified 04:00 Consistent DIET 04/30/24 Transmitted Carb(Ccho)Diabetes Breakfast *Dr. [facility] CONS 04/29/24 Transmitted -[place] 21:40 Glucose Blood PHA 04/29/24 In Process (Accu-Chek Comfort 22:00 Insulin R (Human) PHA 04/29/24 In Process (Insulin R) 22:00 Insulin R (Human) PHA 04/30/24 In Process (Insulin R) 07:00 Dextrose 50% Syringe PHA 04/29/24 In Process 21:45 Allergies JANEL 04/29/24 In Process 21:40 Code Status CODE 04/29/24 Transmitted 21:40 Sodium Chloride Lock PHA 04/29/24 In Process (Saline Lock Ns) 22:00 Oxygen Per Hour RT 04/29/24 Transmitted 21:40 Hydrocodone-Acet PHA 04/29/24 In Process 5/325mg Tab ([place] 21:45 Ondansetron Hcl PHA 04/29/24 In Process (Zofran) 21:45 Docusate Sodium PHA 04/29/24 In Process Capsule (Colace 21:45 Fall Risk Precautions JANEL 04/29/[address] 21:40 Complete Blood Count LAB 04/30/24 Verified 04:00 Comprehensive LAB 04/30/24 Verified Metabolic Panel 04:00 Condition: Serious JANEL 04/29/24 In Process 21:40 Acetaminophen Tablet PHA 04/29/24 In Process (Tylenol Tablet) 21:45 Sequential JANEL 04/29/24 In Process Compression Device Problem List: (1) Generalized weakness (2) Acute on chronic renal failure (3) Hypertensive urgency (4) Acute coronary syndrome with high troponin Date of Service: Apr 29, 2024 Billing Provider: CAMI WILLS DNP Common Visit Codes: 15316-SMPCOCL INP/OBS CARE (HIGH) CAMI WILLS DNP Apr 29, 2024 23:43
[2024-04-29] MEDS ORDERED: NITROGLYCERIN 0.4 MG SL TAB SL PRN (23:45)
[2024-04-29] MEDS ORDERED: MORPHINE SULFATE INJ 2 MG/ml SYRG IV PRN (23:45)
[2024-04-30] MEDS: InsuLIN REG 1unit/0.01ml Soln (100units/ml) SC SCH ×2 (00:18→07:00)
[2024-04-30] MEDS: HEPARIN SODIUM (PORCINE) 5000 UNITS/ML 1ML VIAL IV ONE (01:30)
[2024-04-30] MEDS: HEPARIN DRIP/D5W 100UNITS/ML 250 ML IV SCH ×2 (04:07→14:24)
[2024-04-30 05:33] LABS: Basophils # (auto) 0 10 ^3/uL (0-0.2); Basophils % (auto) 0.5 % (0.0-2.0); Eosinophils # (auto) 0.2 10 ^3/uL (0-0.8); Eosinophils % (auto) 2.1 % (0.0-7.0); Hematocrit 42.8 % (41.0-53.0); Lymphocytes # (auto) 1.9 10 ^3/uL (0.4-5.4); Lymphocytes % (auto) 20.4 % (10.0-50.0); Mean Corpuscular Hemoglobin 29.1 pg (28.0-32.0); Mean Corpuscular Hgb Conc. 32.6 g/dL (32.0-36.0); Mean Corpuscular Volume 89.1 fL (80.0-100.0); Monocytes # (auto) 0.6 10 ^3/uL (0-1.3); Neutrophils # (auto) 6.5 10 ^3/uL (1.6-8.6); Nucleated Red Blood Cells % 0.2 %; Platelet Count (auto) 264 10^3/uL (140-450); Red Cell Distribution Width 13.4 % (11.8-14.3); White Blood Cell 9.3 10^3/uL (4.4-10.8)
[2024-04-30 05:43] LABS: Alanine Aminotransferase 32 U/L (7-40); Anion Gap 9 (5-15); BUN/Creatinine Ratio 20.8 (10.0-20.0); Calcium 10.4 mg/dL (8.7-10.4); Carbon Dioxide 25 mmol/L (20-31); Sodium 142 mmol/L (136-145)
[2024-04-30 05:44] LABS: Albumin 4.3 g/dL (3.2-4.8); Bilirubin, Total 0.3 mg/dL (0.2-1.0); Total Protein 6.9 g/dL (5.7-8.2)
[2024-04-30 05:58] LABS: Alkaline Phosphatase 45 U/L (46-116); Aspartate Aminotransferase 154 U/L (13-40); Blood Urea Nitrogen 49 mg/dL (9-23); Chloride 108 mmol/L (98-107); Glucose 181 mg/dL (74-106); Potassium 5.2 mmol/L (3.5-5.1)
--- NOTE | 2024-04-30 06:09 | ECG ---
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
[2024-04-30 08:00] VITALS: PULSE 55; RESP 16; O2SAT 57
[2024-04-30 08:07] LABS: Urine Bacteria MANY /hpf (None Seen); Urine Blood TRACE /uL (Negative); Urine Clarity Turbid (Clear); Urine Color Light-Yellow (Yellow); Urine Hyaline Cast FEW /lpf (0 - 2); Urine Protein, UAD TRACE (Negative); Urine Specific Gravity 1.015 (1.001-1.035); Urine Squamous Epithelial Cell FEW /hpf (<5); Urine Urobilinogen Normal (Negative); Urine WBC 129 /HPF (0-3); Urine pH 5.5 (5.0-9.0)
[2024-04-30 08:11] LABS: INR 1.14 (0.9-1.15); Partial Thromboplastin Time 28.1 SEC (24.5-34.5); Prothrombin Time 11.9 sec (9.3-11.8)
--- NOTE | 2024-04-30 08:52 | DVHINCON2 ---
CARITO DUTTA AGACNP 04/30/24 0852: Date Seen: Apr 30, 2024 Referring Physician Tala Reason for Consultation NSTEMI History of Present Illness 83 year old male ith [facility] for AAA post EVAR 2008, HTN, DM, HLD, CKD stage 3 presented to the hosptial with chest pain. Chest pain described as presure to left chest area, non radiating, was sudden onset, associated with some SOB at the time. Pressure did not let up therefore patient called ems. Upon evaluation in ER patient noted to have positive troponins trending 507, 777, 5382, [id number]. creatinie 2.5, k5.2, CXR negative. EKG reviewed and shows sinus rhythm at 60 bpm, inferior lateral ST and T wave abnormality. Past Medical History HTN DM HLD AAA Past Surgical History AAA repair Family History Denies pertinent family cardiac history Social History Deneis, tobacco, alcohol or illicit drug use. Allergies: Coded Allergies: NO KNOWN ALLERGIES (Unverified , 07/12/23) Home Meds Active Scripts Sulfamethoxazole W/Trimethopri (Bactrim Ds Tablet) 1 Tab Tb, 1 TAB PO BID for 10 Days, #20 TAB Prov:PABLITO LUCAS 09/04/23 Acetaminophen W/ Codeine (Tylenol W/Cod #3) 1 Tab Tb, 1 TAB PO QIDP, #10 TAB 0 Refills Prov:MANUEL SAMS 07/12/23 Clindamycin Hcl (Clindamycin Hcl) 300 Mg Cap, 1 CAP PO TID for 7 Days, #21 CAP 0 Refills Prov:MANUEL SAMS 07/12/23 Cephalexin Monohydrate (Cephalexin) 500 Mg Cap, 1 CAP PO BID for 7 Days, #14 CAP 0 Refills Prov:MANUEL SAMS 07/12/23 Current Medications Current Medications Medications (Trade) Dose Ordered Sig/Lavell Route PRN Reason Start Time Stop Time Status Last Admin Aspirin 81 mg DAILY PO 04/30/24 10:00 Atorvastatin Calcium (Lipitor) 20 mg HS PO 04/29/24 22:00 04/29/24 22:20 Amlodipine Besylate (Norvasc Tablet) 5 mg DAILY PO 04/30/24 10:00 Hydralazine HCl (Apresoline Injection) 10 mg Q6HP PRN IV SBP>150 04/29/24 21:45 Diagnostic Test (Pha) (Accu-Chek Comfort Curve T) 1 strip ACHS 04/29/24 22:00 04/30/24 07:00 Insulin Human Regular (InsuLIN R) HS SC 04/29/24 22:00 04/30/24 00:18 Insulin Human Regular (InsuLIN R) AC SC 04/30/24 07:00 04/30/24 07:00 Dextrose 50 ml UD PRN IV Blood Sugar LESS THAN 60 04/29/24 21:45 Sodium Chloride (Saline Lock Ns) 10 ml Q8HR IV 04/29/24 22:00 04/30/24 05:14 Acetaminophen/ Hydrocodone Bitart ([place] 5/325MG Tab) 1 tab Q4HP PRN PO MODERATE PAIN (4-6 PAIN SCALE) 04/29/24 21:45 Ondansetron HCl (Zofran) 4 mg Q4HP PRN IV NAUSEA / VOMITING 04/29/24 21:45 Docusate Sodium (Colace Capsule) 100 mg BIDPRN PRN PO FOR CONSTIPATION 04/29/24 21:45 Acetaminophen (Tylenol Tablet) 650 mg Q6HP PRN PO PAIN SCALE 1-3 OR TEMP>100.4 04/29/24 21:45 Nitroglycerin (Ntrostat Sublingual) 0.4 mg Q5MINP PRN SL FOR CHEST PAIN 04/29/24 23:45 Morphine Sulfate 2 mg Q30M PRN IV FOR CHEST PAIN 04/29/24 23:45 Heparin Sodium/ Dextrose 250 ml @ 10 mls/hr Q24H IV 04/30/24 04:00 04/30/24 04:07 Review of Systems Constitutional: No: Fever, Chills, Sweats, Weakness, Malaise, Other Eyes: No: Pain, Vision change, Conjunctivae inflammation, Eyelid inflammation, Other, Redness ENT: No: Ear pain, Ear discharge, Nose pain, Nose discharge, Nose congestion, Mouth pain, Mouth swelling, Throat pain, Throat swelling, Other Respiratory: No: Cough, Dry, Shortness of breath, SOB with exertion, Wheezing, Hemoptysis, Pleuritic Pain, Sputum, Wheezing, Other Cardiovascular: ; No: Palpitations, Orthopnea, Paroxysmal Noc. Dyspnea, Edema, Lt Headedness, Other positive: Chest Pain Gastrointestinal: No: Nausea, Vomiting, Abdominal Pain, Diarrhea, Constipation, Melena, Hematochezia, Other Genitourinary: No Dysuria, No Frequency, No Incontinence, No Hematuria, No Retention, No Other Musculoskeletal: neck pain; No: other, shoulder pain, arm pain, back pain, hand pain, leg pain, foot pain Skin: No: Rash, Lesions, Jaundice, Bruising, Other Neurological: Other (Dizziness, headache.); No: Weakness, Numbness, Incoordination, Change in speech, Confusion, Seizures Vital Signs Vital Signs Date Time Temp Pulse Resp B/P (MAP) Pulse Ox O2 Delivery O2 Flow Rate FiO2 04/30/24 08:00 58 04/30/24 03:30 97.8 11 134/72 (92) 100 97.8 Physical Exam General appearance: Patient is well-developed, well-nourished, in no acute distress. HEENT: Exam shows: Normocephalic, atraumatic, PERRLA, EOMI Neck: Supple, no bruits Chest: Equal chest excursion bilaterally. Breath sounds normal-no rales or wheezes. Heart: Rhythm: Regular rate; no murmur or gallop Abdomen: Exam shows: Soft, nontender, nondistended Musculoskeletal: No clubbing, no cyanosis, trace lower extremity edema Dermatology: Skin warm, moist. Neurological: Exam shows: Alert and oriented x4, normal speech Available prior records, labs, EKG, rhythm strips reviewed and interpreted Labs/Diagnostic Data Labs Test 04/30/24 07:36 04/30/24 07:24 04/30/24 07:00 04/30/24 05:00 Range/Units Urine Color Light-yellow Yellow Urine Clarity Turbid H Clear Urine pH 5.5 5.0-9.0 Urine Specific [place] 1.015 1.001-1.035 Urine Protein Trace H Negative Urine Ketones Negative Negative Urine Blood Trace H Negative /uL Urine Nitrite Negative Negative Urine Bilirubin Negative Negative Urine Urobilinogen Normal Negative mg/dL Urine Leukocyte Esterase 3+ Negative /uL Urine RBC 4 0 - 3 /hpf Urine Microscopic WBC 129 H 0-3 /HPF Urine Squamous Epithelial Cells Few <5 /hpf Urine Bacteria Many H None Seen /hpf Urine Hyaline Casts Few 0 - 2 /lpf Urine Glucose Normal Normal mg/dL POC Glucose 149 H 70-106 mg/dl Prothrombin Time 11.9 H 9.3-11.8 sec Prothrombin Time INR 1.14 0.9-1.15 Activated Partial Thromboplast Time 28.1 24.5-34.5 SEC White Blood Count 9.3 4.4-10.8 10^3/uL Red Blood Count 4.80 4.5-5.90 10^6/uL Hemoglobin 14.0 13.5-17.5 g/dL Hematocrit 42.8 41.0-53.0 % Mean Corpuscular Volume 89.1 80.0-100.0 fL Mean Corpuscular Hemoglobin 29.1 28.0-32.0 pg Mean Corpuscular Hemoglobin Concent 32.6 32.0-36.0 g/dL Red Cell Distribution Width 13.4 11.8-14.3 % Platelet Count 264 140-450 10^3/uL Mean Platelet Volume 8.7 6.9-10.8 fL Neutrophils (%) (Auto) 70.0 37.0-80.0 % Lymphocytes (%) (Auto) 20.4 10.0-50.0 % Monocytes (%) (Auto) 7.0 0.0-12.0 % Eosinophils (%) (Auto) 2.1 0.0-7.0 % Basophils (%) (Auto) 0.5 0.0-2.0 % Neutrophils # (Auto) 6.5 1.6-8.6 10 ^3/uL Lymphocytes # (Auto) 1.9 0.4-5.4 10 ^3/uL Monocytes # (Auto) 0.6 0-1.3 10 ^3/uL Eosinophils # (Auto) 0.2 0-0.8 10 ^3/uL Basophils # (Auto) 0 0-0.2 10 ^3/uL Nucleated Red Blood Cells 0.2 % Sodium Level 142 136-145 mmol/L Potassium Level 5.2 H 3.5-5.1 mmol/L Chloride Level 108 H 98-107 mmol/L Carbon Dioxide Level 25 20-31 mmol/L Anion Gap 9 5-15 Blood Urea Nitrogen 49 H 9-23 mg/dL Creatinine 2.36 H 0.700-1.30 mg/dL Glomerular Filtration Rate Calc 26 >90 mL/min BUN/Creatinine Ratio 20.8 H 10.0-20.0 Serum Glucose 181 H 74-106 mg/dL Calcium Level 10.4 8.7-10.4 mg/dL Total Bilirubin 0.3 0.2-1.0 mg/dL Aspartate Amino Transferase (AST) 154 H 13-40 U/L Alanine Aminotransferase (ALT) 32 7-40 U/L Alkaline Phosphatase 45 L 46-116 U/L Troponin I High Sensitivity 98981 *H </=54 ng/L Total Protein 6.9 5.7-8.2 g/dL Albumin 4.3 3.2-4.8 g/dL Assessment NSTEMI HTN HLD CKD DM Hx AAA Plan/Recommendation * [place] [id number] * continue aspirin, will load with plavix and continue 75 mg daily. Continue statin. * Nephrology consult, appreciate recs * Follow up ECHO Case Discussed with Dr Cowan. Continue anticoagulation therapy with heparin drip. Plan of care discussed with the patient, verbalized understanding of risks versus benefits with coronary angiogram. Given his poor kidney function appreciate nephrology input. Discussed medical management vs invasive procedure. As patient is currently CP free, will follow up ECHO and nephrology recs. NPO after midnight. Critical care, time spent: 44 minutes This medical document was created using an electronic medical record system with voice recognition software and computerized dictation system. Although this document has been carefully reviewed, there might still be some phonetic and typographical errors. Occasional wrong-word or ``sound-alike substitutions may have occurred due to the inherent limitations of voice recognition software. These areas are purely typographical due to imperfections of the software pr ograms and do not reflect any compromise in the patient's medical care. Please read the chart carefully and recognize, using context, where these substitutions have occurred. Thank you for allowing me to participate in the management of this patient. The treatment plan was discussed with and agreed upon by patient/family including requesting consultants and ordering of imaging/procedures. Plan discussed with: Patient NYHA Physical activity limitations: NA Date of Service: Apr 30, 2024 Billing Provider: CARITO DUTTA [facility] Cardiology Common Codes: 34818-[id number] INP/OBS CARE (High), 25981-[id number] CARE 30-74 MIN BOGDAN COWAN MD 05/01/24 0901: Allergies: Coded Allergies: NO KNOWN ALLERGIES (Unverified , 07/12/23) Home Meds Active Scripts Sulfamethoxazole W/Trimethopri (Bactrim Ds Tablet) 1 Tab Tb, 1 TAB PO BID for 10 Days, #20 TAB Prov:PABLITO LUCAS 09/04/23 Acetaminophen W/ Codeine (Tylenol W/Cod #3) 1 Tab Tb, 1 TAB PO QIDP, #10 TAB 0 Refills Prov:MANUEL SAMS 07/12/23 Clindamycin Hcl (Clindamycin Hcl) 300 Mg Cap, 1 CAP PO TID for 7 Days, #21 CAP 0 Refills Prov:MANUEL SAMS 07/12/23 Cephalexin Monohydrate (Cephalexin) 500 Mg Cap, 1 CAP PO BID for 7 Days, #14 CAP 0 Refills Prov:MANUEL SAMS 07/12/23 Plan/Recommendation HIGH RISK PT FOR ALMA NO CHEST PAIN NOW LIKELY LAD INFARCT HEPARIN GTT RENAL CONSULT 40 MINS CRITICAL CARE TIME SPENT Plan discussed with: Patient CARITO DUTTA Jovana AGACNP Apr 30, 2024 08:52 BOGDAN COWAN MD May 01, 2024 09:01
[2024-04-30] MEDS: amLODIPine BESYLATE 5 MG TAB PO SCH (09:45)
[2024-04-30] MEDS: ASPirin 81 mg TAB PO SCH (09:45)
[2024-04-30] MEDS: CLOPIDOGREL BISULFATE 75 MG TAB PO ONE (09:45)
[2024-04-30 10:07] LABS: Amphetamine Screen, Urine Neg (NEGATIVE); Barbiturate Scree,Urine Neg (NEGATIVE); Benzodiazephine Screen, Urine Neg (NEGATIVE); Cannabinoid Screen, Urine Neg (NEGATIVE); Cocaine Screen, Urine Neg (NEGATIVE); Opiate Scree,Urine Neg (NEGATIVE); Phencyclidine Screen, Urine Neg (NEGATIVE)
[2024-04-30 10:11] LABS: Magnesium 1.4 mg/dL (1.6-2.6)
[2024-04-30] MEDS: cefTRIAXone 1GM/50ML D5W 50 ML IV ONE (10:35)
--- NOTE | 2024-04-30 10:57 | DVHINCON2 ---
Date of service: Apr 30, 2024 Referring Physician Gage Castellanos, nurse practitioner Reason for Consultation Acute kidney injury History of Present Illness Patient is a 83-year-old male with past medical history significant for DM, High Lipids, Chronic Kidney Disease followed by Dr. Navarro and UTI'S is admitted for chest pain. On admission patient found to have elevated BUN creatinine nephrology is consulted for acute kidney injury Past Medical History PAST MEDICAL HISTORY: CKD, DM, High Lipids, UTI'S, AAA Past Surgical History Surgical History: PTCA Allergies: Coded Allergies: NO KNOWN ALLERGIES (Unverified , 07/12/23) Home Meds Active Scripts Sulfamethoxazole W/Trimethopri (Bactrim Ds Tablet) 1 Tab Tb, 1 TAB PO BID for 10 Days, #20 TAB Prov:PABLITO LUCAS 09/04/23 Acetaminophen W/ Codeine (Tylenol W/Cod #3) 1 Tab Tb, 1 TAB PO QIDP, #10 TAB 0 Refills Prov:MANUEL SAMS 07/12/23 Clindamycin Hcl (Clindamycin Hcl) 300 Mg Cap, 1 CAP PO TID for 7 Days, #21 CAP 0 Refills Prov:MANUEL SAMS 07/12/23 Cephalexin Monohydrate (Cephalexin) 500 Mg Cap, 1 CAP PO BID for 7 Days, #14 CAP 0 Refills Prov:MANUEL SAMS 07/12/23 Current Medications Current Medications Medications (Trade) Dose Ordered Sig/Lavell Route PRN Reason Start Time Stop Time Status Last Admin Aspirin 81 mg DAILY PO 04/30/24 10:00 04/30/24 09:45 Atorvastatin Calcium (Lipitor) 20 mg HS PO 04/29/24 22:00 04/30/24 09:32 DC 04/29/24 22:20 Amlodipine Besylate (Norvasc Tablet) 5 mg DAILY PO 04/30/24 10:00 04/30/24 09:45 Hydralazine HCl (Apresoline Injection) 10 mg Q6HP PRN IV SBP>150 04/29/24 21:45 Diagnostic Test (Pha) (Accu-Chek Comfort Curve T) 1 strip ACHS 04/29/24 22:00 04/30/24 07:00 Insulin Human Regular (InsuLIN R) HS SC 04/29/24 22:00 04/30/24 00:18 Insulin Human Regular (InsuLIN R) AC SC 04/30/24 07:00 04/30/24 07:00 Dextrose 50 ml UD PRN IV Blood Sugar LESS THAN 60 04/29/24 21:45 Sodium Chloride (Saline Lock Ns) 10 ml Q8HR IV 04/29/24 22:00 04/30/24 05:14 Acetaminophen/ Hydrocodone Bitart ([place] 5/325MG Tab) 1 tab Q4HP PRN PO MODERATE PAIN (4-6 PAIN SCALE) 04/29/24 21:45 Ondansetron HCl (Zofran) 4 mg Q4HP PRN IV NAUSEA / VOMITING 04/29/24 21:45 Docusate Sodium (Colace Capsule) 100 mg BIDPRN PRN PO FOR CONSTIPATION 04/29/24 21:45 Acetaminophen (Tylenol Tablet) 650 mg Q6HP PRN PO PAIN SCALE 1-3 OR TEMP>100.4 04/29/24 21:45 Nitroglycerin (Ntrostat Sublingual) 0.4 mg Q5MINP PRN SL FOR CHEST PAIN 04/29/24 23:45 Morphine Sulfate 2 mg Q30M PRN IV FOR CHEST PAIN 04/29/24 23:45 Heparin Sodium/ Dextrose 250 ml @ 10 mls/hr Q24H IV 04/30/24 04:00 04/30/24 04:07 Atorvastatin Calcium (Lipitor) 80 mg HS PO 04/30/24 22:00 Ceftriaxone Sodium 50 ml @ 100 mls/hr DAILY@09 IV 05/01/24 09:00 Review of Systems All 12 item review of systems reviewed with the patient nonsignificant except what is mentioned in the history of present illness H&P Exam Vital Signs/I&O Vital Sign Date Time Temp Pulse Resp B/P (MAP) Pulse Ox O2 Delivery O2 Flow Rate FiO2 04/30/24 12:00 58 04/30/24 10:00 16 137/73 (94) 97 04/30/24 08:00 Nasal Cannula* 2 28 04/30/24 07:00 97.5 97.5 Intake and Output 04/29/24 04/30/24 19:00 07:00 Intake Total 0.1 ml Balance 0.1 ml Intake IV Total 0.1 ml Physical Exam This patient awake and alert Lungs clear to auscultation bilaterally Cardiac exam regular rate and rhythm GI soft nontender was normal Extremities no clubbing cyanosis or edema Neuro nonfocal Labs/Diagnostic Data Labs/Diagnostic Data Laboratory Tests Test 04/30/24 11:55 04/30/24 11:50 04/30/24 09:27 04/30/24 07:36 Range/Units POC Glucose 218 H 70-106 mg/dl Hemoglobin A1c 6.7 H <5.7 % A1C Phosphorus Level 4.0 2.4-5.1 mg/dL Magnesium Level 1.4 L 1.6-2.6 mg/dL Thyroid Stimulating Hormone (TSH) 1.34 0.55-4.78 uIU/mL Urine Opiates Screen Neg NEGATIVE Urine Fentanyl Screen Neg NEGATIVE Urine Barbiturates Screen Neg NEGATIVE Urine Phencyclidine Screen Neg NEGATIVE Urine Amphetamines Screen Neg NEGATIVE Urine Benzodiazepines Screen Neg NEGATIVE Urine Cocaine Screen Neg NEGATIVE Urine Cannabinoids Screen Neg NEGATIVE Urine Color Light-yellow Yellow Urine Clarity Turbid H Clear Urine pH 5.5 5.0-9.0 Urine Specific [place] 1.015 1.001-1.035 Urine Protein Trace H Negative Urine Ketones Negative Negative Urine Blood Trace H Negative /uL Urine Nitrite Negative Negative Urine Bilirubin Negative Negative Urine Urobilinogen Normal Negative mg/dL Urine Leukocyte Esterase 3+ Negative /uL Urine RBC 4 0 - 3 /hpf Urine Microscopic WBC 129 H 0-3 /HPF Urine Squamous Epithelial Cells Few <5 /hpf Urine Bacteria Many H None Seen /hpf Urine Hyaline Casts Few 0 - 2 /lpf Urine Glucose Normal Normal mg/dL Test 04/30/24 07:24 04/30/24 07:00 04/30/24 05:00 04/30/24 00:30 Range/Units POC Glucose 149 H 70-106 mg/dl Prothrombin Time 11.9 H 9.3-11.8 sec Prothrombin Time INR 1.14 0.9-1.15 Activated Partial Thromboplast Time 28.1 24.5-34.5 SEC White Blood Count 9.3 4.4-10.8 10^3/uL Red Blood Count 4.80 4.5-5.90 10^6/uL Hemoglobin 14.0 13.5-17.5 g/dL Hematocrit 42.8 41.0-53.0 % Mean Corpuscular Volume 89.1 80.0-100.0 fL Mean Corpuscular Hemoglobin 29.1 28.0-32.0 pg Mean Corpuscular Hemoglobin Concent 32.6 32.0-36.0 g/dL Red Cell Distribution Width 13.4 11.8-14.3 % Platelet Count 264 140-450 10^3/uL Mean Platelet Volume 8.7 6.9-10.8 fL Neutrophils (%) (Auto) 70.0 37.0-80.0 % Lymphocytes (%) (Auto) 20.4 10.0-50.0 % Monocytes (%) (Auto) 7.0 0.0-12.0 % Eosinophils (%) (Auto) 2.1 0.0-7.0 % Basophils (%) (Auto) 0.5 0.0-2.0 % Neutrophils # (Auto) 6.5 1.6-8.6 10 ^3/uL Lymphocytes # (Auto) 1.9 0.4-5.4 10 ^3/uL Monocytes # (Auto) 0.6 0-1.3 10 ^3/uL Eosinophils # (Auto) 0.2 0-0.8 10 ^3/uL Basophils # (Auto) 0 0-0.2 10 ^3/uL Nucleated Red Blood Cells 0.2 % Sodium Level 142 136-145 mmol/L Potassium Level 5.2 H 3.5-5.1 mmol/L Chloride Level 108 H 98-107 mmol/L Carbon Dioxide Level 25 20-31 mmol/L Anion Gap 9 5-15 Blood Urea Nitrogen 49 H 9-23 mg/dL Creatinine 2.36 H 0.700-1.30 mg/dL Glomerular Filtration Rate Calc 26 >90 mL/min BUN/Creatinine Ratio 20.8 H 10.0-20.0 Serum Glucose 181 H 74-106 mg/dL Calcium Level 10.4 8.7-10.4 mg/dL Total Bilirubin 0.3 0.2-1.0 mg/dL Aspartate Amino Transferase (AST) 154 H 13-40 U/L Alanine Aminotransferase (ALT) 32 7-40 U/L Alkaline Phosphatase 45 L 46-116 U/L Troponin I High Sensitivity 12654 *H 5382 *H </=54 ng/L Total Protein 6.9 5.7-8.2 g/dL Albumin 4.3 3.2-4.8 g/dL Test 04/29/24 21:40 04/29/24 20:45 Range/Units Troponin I High Sensitivity 777 *H 507 *H </=54 ng/L White Blood Count 8.8 4.4-10.8 10^3/uL Red Blood Count 4.83 4.5-5.90 10^6/uL Hemoglobin 14.2 13.5-17.5 g/dL Hematocrit 42.9 41.0-53.0 % Mean Corpuscular Volume 88.9 80.0-100.0 fL Mean Corpuscular Hemoglobin 29.5 28.0-32.0 pg Mean Corpuscular Hemoglobin Concent 33.2 32.0-36.0 g/dL Red Cell Distribution Width 13.2 11.8-14.3 % Platelet Count 273 140-450 10^3/uL Mean Platelet Volume 8.5 6.9-10.8 fL Neutrophils (%) (Auto) 58.5 37.0-80.0 % Lymphocytes (%) (Auto) 29.2 10.0-50.0 % Monocytes (%) (Auto) 8.6 0.0-12.0 % Eosinophils (%) (Auto) 2.9 0.0-7.0 % Basophils (%) (Auto) 0.8 0.0-2.0 % Neutrophils # (Auto) 5.2 1.6-8.6 10 ^3/uL Lymphocytes # (Auto) 2.6 0.4-5.4 10 ^3/uL Monocytes # (Auto) 0.8 0-1.3 10 ^3/uL Eosinophils # (Auto) 0.3 0-0.8 10 ^3/uL Basophils # (Auto) 0.1 0-0.2 10 ^3/uL Nucleated Red Blood Cells 0.1 % Prothrombin Time 12.0 H 9.3-11.8 sec Prothrombin Time INR 1.15 0.9-1.15 Activated Partial Thromboplast Time 26.6 24.5-34.5 SEC Sodium Level 139 136-145 mmol/L Potassium Level 4.9 3.5-5.1 mmol/L Chloride Level 105 98-107 mmol/L Carbon Dioxide Level 24 20-31 mmol/L Anion Gap 10 5-15 Blood Urea Nitrogen 50 H 9-23 mg/dL Creatinine 2.50 H 0.700-1.30 mg/dL Glomerular Filtration Rate Calc 25 >90 mL/min BUN/Creatinine Ratio 20.0 10.0-20.0 Serum Glucose 195 H 74-106 mg/dL Calcium Level 10.6 H 8.7-10.4 mg/dL Total Bilirubin 0.5 0.2-1.0 mg/dL Aspartate Amino Transferase (AST) 48 H 13-40 U/L Alanine Aminotransferase (ALT) 24 7-40 U/L Alkaline Phosphatase 50 46-116 U/L Total Protein 7.3 5.7-8.2 g/dL Albumin 4.6 3.2-4.8 g/dL Assessment Acute kidney injury superimposed Chronic Kidney Disease secondary hemodynamic mediated NSTEMI Hypertension Hyperkalemia Hypomagnesemia Recommendations Closely monitor fluid and electrolytes Avoid nephrotoxic medications Strict I&Os Check urine electrolytes and protein excretion and urinalysis Check kidney ultrasound Lokelma 10 g p.o. x1 Magnesium sulfate IV piggyback Renal diet Cardiology consult We will continue to follow From Nephrology perspective the patient is high risk for acute kidney injury post cardiac catheterization due to his underlying chronic kidney disease and he may need for hemodialysis if kidney function deteriorate however as Cardiology deemed cardiac catheterization is life-saving procedure Cardiology can proceed with a precaution to prevent acute kidney injury post IV contrast using IV fluid hydration with saline at 1 mL/kilogram starting 6 hour before the procedure and continue for 18 hours after the cardiac catheterization. I recommend 80 mg IV push of Lasix immediately following cardiac catheterization Patient seen and examined by myself in the ER. I discussed my plan of care with the patient and primary nurse at the bedside I would like to thank Gage for the consult, will follow up Plan discussed with: Patient MARK HAY MD Apr 30, 2024 10:57
[2024-04-30 14:01] LABS: INR 1.16 (0.9-1.15); Partial Thromboplastin Time 37.6 SEC (24.5-34.5); Prothrombin Time 12.1 sec (9.3-11.8)
--- NOTE | 2024-04-30 19:24 | DVHPNRES ---
Progress Note Date Seen: Apr 30, 2024 Resident Creating Document: RAMU OROZCO RESIDENT Medical Necessity Reason Pt with a Central, PICC or Fol: No Subjective Review of Systems Suhail Reis is a 83 year old male who presents to ED via EMS with chief complaint of retrosternal oppressive chest pain with no radiation, intensity 9/10, in functional class IV associated with dyspnea, presented to the hosptial with chest pain. Patient received in ambulance medical treatment (aspirin and sublingual nitroglycerin) improving his symptoms EKG shows sinus bradycardia with prolonged HI, septal infarct with negative T-waves in anterior- lateral leads. Patient does not recall completing previous coronary angiography (he believes that it was completed when he completed the EVAR treatment over at [facility]). Denies palpitation, syncope, fever, chills, nausea, vomiting, diarrhea, recent travel, sick contacts, dysuria and motor or sensory deficits. Past Medical History: Hypertension, dyslipidemia, diabetes, chronic kidney disease stage 3, AAA status post EVAR in 2008, multiple UTIs Surgical History: 2009 AAA repair with EVAR Family History: Noncontributory Denies pertinent family cardiac history Social History: Lives with family in [place]. Denies current tobacco, alcohol and other drug abuse Allergies: Denies Home medication: Codeine, Bactrim, clindamycin, Patient seen and examined at bedside. Patient currently has no new complaints, has not presented chest pain since medication received in EMS. Cardiology on board, awaiting echocardiogram results and Nephrology input (per nephrology if coronary angiography as needed, suggest to protect kidney with IV fluids 6 hours before and 6 hours after procedure, and furosemide bolus after procedure) Objective vital signs Vital Sign Date Time Temp Pulse Resp B/P (MAP) Pulse Ox O2 Delivery O2 Flow Rate FiO2 04/30/24 18:00 57 16 117/75 (89) 97 04/30/24 16:00 97.9 97.9 04/30/24 08:00 Nasal Cannula* 2 28 Total Intake and Output 04/29/24 04/29/24 04/30/24 15:00 23:00 07:00 Intake Total 0.1 ml Balance 0.1 ml medications Current Medications Medications Dose Ordered Sig/Lavell Route Start Time Stop Time Status Last Admin Dose Admin Aspirin 81 mg DAILY PO 04/30/24 10:00 04/30/24 09:45 81 MG Amlodipine Besylate 5 mg DAILY PO 04/30/24 10:00 04/30/24 09:45 5 MG Hydralazine HCl 10 mg Q6HP PRN IV 04/29/24 21:45 Diagnostic Test (Pha) 1 strip ACHS 04/29/24 22:00 04/30/24 17:00 1 STRIP Insulin Human Regular HS SC 04/29/24 22:00 04/30/24 00:18 10 UNITS Insulin Human Regular AC SC 04/30/24 07:00 04/30/24 17:26 3 UNITS Dextrose 50 ml UD PRN IV 04/29/24 21:45 Sodium Chloride 10 ml Q8HR IV 04/29/24 22:00 04/30/24 14:02 10 ML Acetaminophen/ Hydrocodone Bitart 1 tab Q4HP PRN PO 04/29/24 21:45 Ondansetron HCl 4 mg Q4HP PRN IV 04/29/24 21:45 Docusate Sodium 100 mg BIDPRN PRN PO 04/29/24 21:45 Acetaminophen 650 mg Q6HP PRN PO 04/29/24 21:45 Nitroglycerin 0.4 mg Q5MINP PRN SL 04/29/24 23:45 Morphine Sulfate 2 mg Q30M PRN IV 04/29/24 23:45 Atorvastatin Calcium 80 mg HS PO 04/30/24 22:00 Ceftriaxone Sodium 50 ml @ 100 mls/hr DAILY@09 IV 05/01/24 09:00 Heparin Sodium/ Dextrose 250 ml @ 12 mls/hr [id number] IV 04/30/24 14:30 04/30/24 14:24 12 MLS/HR Examination Patient lying in bed, in no acute distress General: Lucid, afebrile, mucosae are moist Cardiovascular: Normal S1 and S2. No murmurs, gallops or rubs Respiratory: Normal ventilation mechanics. Clear lung sounds on auscultation Abdomen: Prominent, Soft, nontender, no organomegaly, normal bowel sounds MSK/skin: Mobilizes 4 limbs. Skin is dry and warm. Patient has well-perfused Neurological: Oriented in 3 spheres. No motor no sensitive deficits. Pupils are isocoric and reactive laboratory and microbiology Laboratory Tests 04/30/24 05:00 Test 04/30/24 05:00 Range/Units Serum Glucose 181 H 74-106 mg/dL Problem List/Assessment/Plan Problem List/Assessment/Plan # NSTEMI probable type 1 Patient currently on triple therapy (aspirin, clopidogrel and heparin drip) and statin treatment EKG shows sinus bradycardia with prolonged HI, septal infarct and negative symmetrical T-waves in anterolateral leads. Positive troponin curve (507, 777, 5382, 79217) Pending echocardiogram Cardiology on board: Continue triple therapy, have discussed with patient benefits and risk of coronary angiography which include potential risk of requiring hemodialysis, patient is asymptomatic, pending echocardiogram and Nephrology input. NPO after midnight Nephrology evaluated the patient: Patient is high-risk for acute kidney injury post coronary angiography, recommend IV fluids pre and postprocedure to protect kidney, and furosemide bolus after procedure # DIA hemodynamically mediated on CKD Nephrology on board: Recommend protecting kidney for eventual coronary angiography if indicated by Cardiology. Indicated Lokelma, kidney ultrasound, strict I&Os and avoid nephrotoxic medication # UTI Patient has multiple history of previous UTIs. UA has plus three esterase and many bacteria. Last urine culture positive for E coli ESBL in 08/2023. Pending new urine culture Currently on empiric IV antibiotic (ceftriaxone) # Hypertension On arrival patient had approximately 160/100 mmHg of blood pressure. Currently controlled, asymptomatic # Dyslipidemia Currently on statins # Diabetes - controlled (hemoglobin A1c 6.7%) Currently on insulin sliding scale Gave advice on healthy lifestyle habits # AAA status post EVAR Monitor Goals of care discussed with patient for over 18 minutes: Full code status Discussed plan with Dr. Lamb, patient and nurses: Patient currently is asymptomatic, presents high-risk of requiring hemodialysis after coronary angiography, appreciate nephrology and Cardiology input. Patient will be NPO after midnight in we will evaluate completing coronary angiography in the a.m. of 05/01/2024. Patient has poor prognosis Plan discussed with: Patient, Spouse, Other (Nurses) My Orders My Orders Orders - RAMU OROZCO Procedure Category Date Status Time Atorvastatin (Lipitor) PHA 04/30/24 In Process 22:00 Ceftriaxone 1gm/50ml PHA 05/01/24 In Process D5w (Rocephin) 09:00 RAMU OROZCO RESIDENT Apr 30, 2024 19:24
[2024-04-30 19:51] VITALS: PULSE 64; RESP 19; O2SAT 93
[2024-04-30] MEDS: ATORVASTATIN 20 MG TAB PO SCH (21:56)
[2024-05-01] VITALS (8 sets, daily range): BP systolic 137–173; BP diastolic 69–83; PULSE 63–86; RESP 12–19; TEMP 97.6; O2SAT 93–97
[2024-05-01 03:25] LABS: INR 1.14 (0.9-1.15); Partial Thromboplastin Time 61.1 SEC (24.5-34.5); Prothrombin Time 11.9 sec (9.3-11.8)
[2024-05-01 04:57] LABS: Basophils # (auto) 0 10 ^3/uL (0-0.2); Basophils % (auto) 0.4 % (0.0-2.0); Eosinophils # (auto) 0.2 10 ^3/uL (0-0.8); Eosinophils % (auto) 2.8 % (0.0-7.0); Hemoglobin 13.9 g/dL (13.5-17.5); Lymphocytes # (auto) 1.9 10 ^3/uL (0.4-5.4); Lymphocytes % (auto) 22.1 % (10.0-50.0); Mean Corpuscular Hemoglobin 28.7 pg (28.0-32.0); Mean Corpuscular Hgb Conc. 32.2 g/dL (32.0-36.0); Mean Corpuscular Volume 89.1 fL (80.0-100.0); Monocytes # (auto) 0.7 10 ^3/uL (0-1.3); Monocytes % (auto) 7.9 % (0.0-12.0); Neutrophils # (auto) 5.7 10 ^3/uL (1.6-8.6); Neutrophils % (auto) 66.8 % (37.0-80.0); Nucleated Red Blood Cells % 0.1 %; Platelet Count (auto) 259 10^3/uL (140-450); Red Blood Cells 4.83 10^6/uL (4.5-5.90); Red Cell Distribution Width 13.3 % (11.8-14.3); White Blood Cell 8.6 10^3/uL (4.4-10.8)
[2024-05-01 05:10] LABS: Alanine Aminotransferase 35 U/L (7-40); Albumin 4.1 g/dL (3.2-4.8); Anion Gap 9 (5-15); BUN/Creatinine Ratio 20.7 (10.0-20.0); Bilirubin, Total 0.4 mg/dL (0.2-1.0); Carbon Dioxide 25 mmol/L (20-31); INR 1.16 (0.9-1.15); Partial Thromboplastin Time 55.8 SEC (24.5-34.5); Phosphorus 3.2 mg/dL (2.4-5.1); Potassium 4.8 mmol/L (3.5-5.1); Prothrombin Time 12.1 sec (9.3-11.8); Sodium 141 mmol/L (136-145)
[2024-05-01 05:11] LABS: Total Protein 6.5 g/dL (5.7-8.2)
[2024-05-01 05:15] LABS: Alkaline Phosphatase 41 U/L (46-116); Aspartate Aminotransferase 122 U/L (13-40); Blood Urea Nitrogen 49 mg/dL (9-23); Chloride 107 mmol/L (98-107); Glucose 111 mg/dL (74-106); Magnesium 1.3 mg/dL (1.6-2.6)
--- NOTE | 2024-05-01 08:14 | DVHSR ---
APPROVED REPORT EXAM: LIMITED Two-dimensional and M-mode echocardiogram with Doppler and color Doppler. Blood Pressure: 134/72 mmHg INDICATION NSTEMI RISK FACTORS Height: 6', Weight: 206 DIMENSIONS LVDd5.0 (3.8-5.7cm)LA (2D)3.8 (1.9-4.0cm)Aortic Root3.7 (2.0-3.7cm) LVDs4.3 (2.5-4.0cm)LA (MM) (1.9-4.0cm)Aortic Cusp Exc1.9 (1.5-2.0cm) EF (%) 30.0 (55-70%)Rt. Atrium (1.9-4.0cm)Asc. Aorta cm IVSd1.3 (0.7-1.1cm)RV (D) (1.8-2.4cm) PWd1.0 (0.7-1.1cm) Mitral Valve MitralMitral Stenosis E wave0.70m/sMV Mean GR.mmHg A wave1.20m/sMV Peak GR.mmHg E/A ratio0.62D MVAcm2 Aortic Valve Aortic ValveAortic Stenosis V11.10m/[place]ster Mean GR.3mmHg V21.20m/[place] Peak GR.5mmHg LVOT Diameter2.6 (1.8-2.4cm)Doppler AVA4.86cm2 AI P 1/2 Igun9242.07ms Other Information Quality : Technically LimitedRhythm : Technically limited study due to body habitus. Conclusion severe LV dysfunction lvef 25% by visual estimate severe hypokinetic apex and septum low normal RV function left atrium enlarged
[2024-05-01] MEDS: CLOPIDOGREL BISULFATE 75 MG TAB PO ONE (08:18)
[2024-05-01] MEDS: SODIUM CHLORIDE 0.9% 1,000 ML IV SCH (08:20)
[2024-05-01] MEDS: cefTRIAXone 1GM/50ML D5W 50 ML IV SCH (09:18)
[2024-05-01 11:21] LABS: INR 1.14 (0.9-1.15); Prothrombin Time 11.9 sec (9.3-11.8)
--- NOTE | 2024-05-01 11:25 | DVHPN2 ---
Progress Note Date Seen: May 01, 2024 Medical Necessity Reason Pt with a Central, PICC or Fol: No Objective vital signs Vital Sign Date Time Temp Pulse Resp B/P (MAP) Pulse Ox O2 Delivery O2 Flow Rate FiO2 05/01/24 08:15 64 17 137/68 (91) 92 05/01/24 07:20 98.2 98.2 05/01/24 07:20 Room Air* 0 21 Total Intake and Output 04/30/24 04/30/24 05/01/24 15:00 23:00 07:00 Intake Total 142 ml 84 ml 96 ml Output Total 200 ml 650 ml Balance -58 ml 84 ml -554 ml medications Current Medications Medications Dose Ordered Sig/Lavell Route Start Time Stop Time Status Last Admin Dose Admin Aspirin 81 mg DAILY PO 04/30/24 10:00 04/30/24 09:45 81 MG Amlodipine Besylate 5 mg DAILY PO 04/30/24 10:00 04/30/24 09:45 5 MG Hydralazine HCl 10 mg Q6HP PRN IV 04/29/24 21:45 Diagnostic Test (Pha) 1 strip ACHS 04/29/24 22:00 05/01/24 06:38 1 STRIP Insulin Human Regular HS SC 04/29/24 22:00 04/30/24 21:57 3 UNITS Insulin Human Regular AC SC 04/30/24 07:00 04/30/24 17:26 3 UNITS Dextrose 50 ml UD PRN IV 04/29/24 21:45 Sodium Chloride 10 ml Q8HR IV 04/29/24 22:00 05/01/24 06:34 10 ML Acetaminophen/ Hydrocodone Bitart 1 tab Q4HP PRN PO 04/29/24 21:45 Ondansetron HCl 4 mg Q4HP PRN IV 04/29/24 21:45 Docusate Sodium 100 mg BIDPRN PRN PO 04/29/24 21:45 Acetaminophen 650 mg Q6HP PRN PO 04/29/24 21:45 Nitroglycerin 0.4 mg Q5MINP PRN SL 04/29/24 23:45 Morphine Sulfate 2 mg Q30M PRN IV 04/29/24 23:45 Atorvastatin Calcium 80 mg HS PO 04/30/24 22:00 04/30/24 21:56 80 MG Ceftriaxone Sodium 50 ml @ 100 mls/hr DAILY@09 IV 05/01/24 09:00 05/01/24 09:18 100 MLS/HR Sodium Chloride 1,000 ml @ 125 mls/hr Q8H IV 05/01/24 08:15 05/01/24 08:20 125 MLS/HR Examination: GENERAL:Abnormal, CVS:Abnormal laboratory and microbiology Laboratory Tests 05/01/24 04:20 Test 05/01/24 04:20 Range/Units Serum Glucose 111 H 74-106 mg/dL Microbiology Date/Time Source Procedure Growth Status 04/30/24 07:36 Voided Urine Urine Culture - Preliminary Resulted Problem List/Assessment/Plan Problem List/Assessment/Plan Acute kidney injury superimposed Chronic Kidney Disease secondary hemodynamic mediated NSTEMI Hypertension Hyperkalemia Hypomagnesemia Status post catheterization lab Patient now started on IV fluid, I recommend close monitoring giving significantly reduced ejection fraction EF of 25%. We will follow cardiology recommendations Avoid nephrotoxic medications Strict I&Os Renal diet Magnesium replacement today Ultrasound of the kidney and bladder Plan discussed with: Patient GUILLE DAVISON MD May 01, 2024 11:25
[2024-05-01] MEDS: IODIXANOL 320MG/ML 100ML BTL IV ONE (11:55)
[2024-05-01] MEDS: MAGNESIUM SULFATE 1GM/100ML 100 ML IV SCH (12:00)
[2024-05-01] MEDS: ANGIOMAX 250 MG VIAL IV ONE (12:19)
[2024-05-01] MEDS: SODIUM CHL 0.9% 50 ML ONE (12:20)
[2024-05-01] MEDS: LIDOCAINE 2%HCL (LOCAL ANESTH.) INJ 20ML MDV ONE (12:20)
[2024-05-01] MEDS: HEPARIN SODIUM (PORCINE) 5000 UNITS/ML 1ML VIAL ONE (12:20)
[2024-05-01] MEDS: VERAPAMIL 2.5MG/ML INJ 2ML VIAL IV ONE (12:20)
[2024-05-01] MEDS: fentaNYL CITRATE 100 MCG/2 ML VL ONE (12:22)
[2024-05-01] MEDS: MIDAZOLAM HCL 2MG/2ML 2ml VIAL (1mg/ml) ONE (12:22)
--- NOTE | 2024-05-01 13:06 | DVH ---
INDICATION: DIA TECHNIQUE: Multiple real-time sonographic images of the kidneys and bladder were obtained. COMPARISON: None FINDINGS: The right kidney measures 8 cm in length, atrophic . There is normal echogenicity of the right kidney . No hydronephrosis. The left kidney measures 12 cm in length, which is normal in size. There is normal echogenicity of th e left kidney. No hydronephrosis. Shadowing stone seen within the bladder. These measure up to 2 cm. Prior to voiding the bladder volume measures volume 186 cc. Following voiding, the bladder volume residual measures cc. IMPRESSION: 1. Atrophic right kidney. 2. Bladder stones are visualized.
[2024-05-01] MEDS ORDERED: TAMS0.4C39 PO (13:52)
[2024-05-01] MEDS ORDERED: SODIUM CHLORIDE 0.9% 1,000 ML IV SCH (14:30)
[2024-05-01] MEDS: CLOPIDOGREL BISULFATE 75 MG TAB ONE (14:34)
[2024-05-01] MEDS: ASPirin 81 mg TAB ONE (14:34)
--- NOTE | 2024-05-01 14:41 | ECG ---
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
--- NOTE | 2024-05-01 14:44 | DVHPN2 ---
Progress Note Date Seen: May 01, 2024 Medical Necessity Reason Pt with a Central, PICC or Fol: No Subjective Patient reports: Feels better Other Systems: sp cath and pci Objective vital signs Vital Sign Date Time Temp Pulse Resp B/P (MAP) Pulse Ox O2 Delivery O2 Flow Rate FiO2 05/01/24 08:15 64 17 137/68 (91) 92 05/01/24 07:20 98.2 98.2 05/01/24 07:20 Room Air* 0 21 Total Intake and Output 04/30/24 04/30/24 05/01/24 15:00 23:00 07:00 Intake Total 142 ml 84 ml 96 ml Output Total 200 ml 650 ml Balance -58 ml 84 ml -554 ml medications Current Medications Medications Dose Ordered Sig/Lavell Route Start Time Stop Time Status Last Admin Dose Admin Aspirin 81 mg DAILY PO 04/30/24 10:00 04/30/24 09:45 81 MG Amlodipine Besylate 5 mg DAILY PO 04/30/24 10:00 04/30/24 09:45 5 MG Hydralazine HCl 10 mg Q6HP PRN IV 04/29/24 21:45 Diagnostic Test (Pha) 1 strip ACHS 04/29/24 22:00 05/01/24 06:38 1 STRIP Insulin Human Regular HS SC 04/29/24 22:00 04/30/24 21:57 3 UNITS Insulin Human Regular AC SC 04/30/24 07:00 04/30/24 17:26 3 UNITS Dextrose 50 ml UD PRN IV 04/29/24 21:45 Sodium Chloride 10 ml Q8HR IV 04/29/24 22:00 05/01/24 06:34 10 ML Acetaminophen/ Hydrocodone Bitart 1 tab Q4HP PRN PO 04/29/24 21:45 Ondansetron HCl 4 mg Q4HP PRN IV 04/29/24 21:45 Docusate Sodium 100 mg BIDPRN PRN PO 04/29/24 21:45 Acetaminophen 650 mg Q6HP PRN PO 04/29/24 21:45 Nitroglycerin 0.4 mg Q5MINP PRN SL 04/29/24 23:45 Morphine Sulfate 2 mg Q30M PRN IV 04/29/24 23:45 Atorvastatin Calcium 80 mg HS PO 04/30/24 22:00 04/30/24 21:56 80 MG Ceftriaxone Sodium 50 ml @ 100 mls/hr DAILY@09 IV 05/01/24 09:00 05/01/24 09:18 100 MLS/HR Sodium Chloride 1,000 ml @ 125 mls/hr Q8H IV 05/01/24 08:15 05/01/24 08:20 125 MLS/HR Examination: GENERAL:Abnormal, HEENT:Abnormal, LUNGS:Abnormal, CVS:Abnormal, ABDOMEN:Abnormal laboratory and microbiology Laboratory Tests 05/01/24 04:20 Test 05/01/24 04:20 Range/Units Serum Glucose 111 H 74-106 mg/dL Microbiology Date/Time Source Procedure Growth Status 04/30/24 07:36 Voided Urine Urine Culture - Preliminary Resulted Problem List/Assessment/Plan Problem List/Assessment/Plan nstemi 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
--- NOTE | 2024-05-01 14:53 | DVHOP2 ---
Operative Report Operative Report CARDIAC AUTOMATIC TIRE TESTER PROCEDURE REPORT [place], [place] Date of Service: 05/01/24 Boot Maker: Bogdan Cowan MD PROCEDURES PERFORMED: Coronary angiogram, left heart catheterization, conscious sedation administration and supervision, less than 15 minutes; fluoroscopy use and interpretation. conscious sedation 15-30m ins, 31-45 mins, 46-60 mins, PTCA1 vessel, PCI 1 vessel, acute MS intervention, intracoronary injection nitro glycerin PREOPERATIVE DIAGNOSES: NSTEMI POSTOP DIAGNOSIS: NSTEMI DESCRIPTION OF PROCEDURE: The patient or appropriate family signed informed consent understanding the risks, benefits and alternatives of the procedure, they wished to proceed. The patient was brought to the cardiac laborer yard in [place]p.o[place] state. The patient was prepped in a sterile fashion. Sedation was used per cardiac cath protocol. I administered 2 mL of 2% lidocaine to the right wrist. With an antegrade front wall puncture. I cannulated the right radial artery but I couldnt wire despite excellent flow. I tried another time and again excellent flow but couldnt wire given severe calcium in his radial artery. THerefore I held 5 mins pressure and accessed the L Radial artery after giving 1 cc lidocaine to wrist. I then and placed a 6- Hungarian Glidesheath slender. Next, an intra-arterial spasmolytic was administered. Next, a - 6French JR4, JL4 and XB 3.5 and were used for coronary angiogram and LVEDP measurement and pressure pullback. At the completion of procedure, all guides and wires were removed, and there were no immediate complications. FINDINGS: RCA: Moderate vessel off the right sinus of Valsalva, there is a prox to mid 60% stenosis. very tortuous vessel. distal RCA has diffuse small vessel disease. LEFT MAIN: Moderate size left main, it bifurcates into LAD and circumflex. no severe stenosis CIRCUMFLEX: Moderate caliber vessel coming off the left main with no flow limiting stenosis. prox CX is patent. OM1 has a 60% stenosis . mid CX is patent . LAD: LAD is a moderate caliber vessel coming of the left main. prox LAD has a tandem 99% and 90% calcifics stenosis in the mid portion at Diag bifurcation . distal LAD has a tandem 50% stenosis. INTERVENTION: We decided to proceed with coronary intervention. I started with a 6F __ XB 3.5 __ Guide to intubate the LM __. Angiomax bolus and gtt was started. Following this, I decided to wire using an .014 BMW across the culprit lesion with ease. At this time, we performed balloon angioplasty with a _2.5 x 15 mm balloon __10 ___ ATMS over __15__ seconds w2 __ number of inflations. Following this, I decided to place two stents as there was prox and mid disease stent using a 3.0 x 30 mm onyx____ stent inflated up to __18___ ATMS over 15 seconds with two separate inflations. Following this, the stent balloon removed and angio performed showing 0% residual stenosis. Then I stented using a 3.0 x 18 mm with 2-3 mm overlap and inflated to 18 atms twice each 15 seconds. then i ptca between 2 stents. then 200 mcg of IC nitro given. No severe complications with excellent results. KEITH pre/post: 3./3 CONCLUSIONS: 1. sp pci to 99% prox LAD and 90% mid LAD stenosis with 2 MIKE PLAN: Aggressive risk factor modification and medical management for the patient. DAPT x 1 year uninterrupted BOGDAN COWAN MD May 01, 2024 14:53
[2024-05-01] MEDS: FUROSEMIDE 100 MG/10ML VIAL IV ONE (15:15)
[2024-05-01] MEDS ORDERED: FINA5TAB4 PO (15:35)
--- NOTE | 2024-05-01 16:59 | DVHPNRES ---
Progress Note Date Seen: May 01, 2024 Resident Creating Document: RAMU OROZCO RESIDENT Medical Necessity Reason Pt with a Central, PICC or Fol: No Subjective Review of Systems Suhail Reis is a 83 year old male who presents to ED via EMS with chief complaint of retrosternal oppressive chest pain with no radiation, intensity 9/10, in functional class IV associated with dyspnea, presented to the hosptial with chest pain. Patient received in ambulance medical treatment (aspirin and sublingual nitroglycerin) improving his symptoms EKG shows sinus bradycardia with prolonged PA, septal infarct with negative T-waves in anterior- lateral leads. Patient does not recall completing previous coronary angiography (he believes that it was completed when he completed the EVAR treatment over at [facility]). Denies palpitation, syncope, fever, chills, nausea, vomiting, diarrhea, recent travel, sick contacts, dysuria and motor or sensory deficits. Past Medical History: Hypertension, dyslipidemia, diabetes, chronic kidney disease stage 3, AAA status post EVAR in 2008, multiple UTIs Surgical History: 2009 AAA repair with EVAR Family History: Noncontributory Denies pertinent family cardiac history Social History: Lives with family in [place]. Denies current tobacco, alcohol and other drug abuse Allergies: Denies Home medication: Codeine, Bactrim, clindamycin, Patient seen and examined at bedside. Patient completed angiography which showed proximal LAD 99% and 90% stenosis in tandem, distal LAD 50%, proximal RCA 60%, proximal circumflex 60%. PCI to proximal LAD and mid LAD with 2 MIKE Objective vital signs Vital Sign Date Time Temp Pulse Resp B/P (MAP) Pulse Ox O2 Delivery O2 Flow Rate FiO2 05/01/24 08:15 64 17 137/68 (91) 92 05/01/24 07:20 98.2 98.2 05/01/24 07:20 Room Air* 0 21 Total Intake and Output 04/30/24 04/30/24 05/01/24 15:00 23:00 07:00 Intake Total 142 ml 84 ml 96 ml Output Total 200 ml 650 ml Balance -58 ml 84 ml -554 ml medications Current Medications Medications Dose Ordered Sig/Lavell Route Start Time Stop Time Status Last Admin Dose Admin Aspirin 81 mg DAILY PO 04/30/24 10:00 04/30/24 09:45 81 MG Amlodipine Besylate 5 mg DAILY PO 04/30/24 10:00 04/30/24 09:45 5 MG Hydralazine HCl 10 mg Q6HP PRN IV 04/29/24 21:45 Diagnostic Test (Pha) 1 strip ACHS 04/29/24 22:00 05/01/24 06:38 1 STRIP Insulin Human Regular HS SC 04/29/24 22:00 04/30/24 21:57 3 UNITS Insulin Human Regular AC SC 04/30/24 07:00 04/30/24 17:26 3 UNITS Dextrose 50 ml UD PRN IV 04/29/24 21:45 Sodium Chloride 10 ml Q8HR IV 04/29/24 22:00 05/01/24 06:34 10 ML Acetaminophen/ Hydrocodone Bitart 1 tab Q4HP PRN PO 04/29/24 21:45 Ondansetron HCl 4 mg Q4HP PRN IV 04/29/24 21:45 Docusate Sodium 100 mg BIDPRN PRN PO 04/29/24 21:45 Acetaminophen 650 mg Q6HP PRN PO 04/29/24 21:45 Nitroglycerin 0.4 mg Q5MINP PRN SL 04/29/24 23:45 Morphine Sulfate 2 mg Q30M PRN IV 04/29/24 23:45 Atorvastatin Calcium 80 mg HS PO 04/30/24 22:00 04/30/24 21:56 80 MG Ceftriaxone Sodium 50 ml @ 100 mls/hr DAILY@09 IV 05/01/24 09:00 05/01/24 09:18 100 MLS/HR Sodium Chloride 1,000 ml @ 125 mls/hr Q8H IV 05/01/24 08:15 05/01/24 08:20 125 MLS/HR Sodium Chloride 1,000 ml @ 125 mls/hr Q8H IV 05/01/24 14:30 UNV Examination Patient lying in bed, in no acute distress General: Lucid, afebrile, mucosae are moist Cardiovascular: Normal S1 and S2. No murmurs, gallops or rubs. Left puncture site with no hematoma. Has radial stop device Respiratory: Normal ventilation mechanics. Clear lung sounds on auscultation Abdomen: Prominent, Soft, nontender, no organomegaly, normal bowel sounds MSK/skin: Mobilizes 4 limbs. Skin is dry and warm. Patient has well-perfused Neurological: Oriented in 3 spheres. No motor no sensitive deficits. Pupils are isocoric and reactive laboratory and microbiology Laboratory Tests 05/01/24 04:20 Test 05/01/24 04:20 Range/Units Serum Glucose 111 H 74-106 mg/dL Microbiology Date/Time Source Procedure Growth Status 04/30/24 07:36 Voided Urine Urine Culture - Preliminary Resulted Problem List/Assessment/Plan Problem List/Assessment/Plan # NSTEMI probable type 1 Patient required on admissionon triple therapy (aspirin, clopidogrel and heparin drip) and statin treatment EKG shows sinus bradycardia with prolonged PA, septal infarct and negative symmetrical T-waves in anterolateral leads. Positive troponin curve (507, 777, 5382, 17106) Completed echocardiogram: Severe LV dysfunction, LVEF 25%, severe hypokinetic apex and septum, low/normal RV function, left atrium enlargement Cardiology on board: Currentlty on DAPT, discontinued Heparin drip, completed angiography which showed proximal LAD 99% and 90% stenosis in tandem, distal LAD 50%, proximal RCA 60%, proximal circumflex 60%. PCI to proximal LAD and mid LAD with 2 MIKE. Recommend aggressive risk factor modification with medical management, DAPT for at least one year Nephrology evaluated the patient: Patient is high-risk for acute kidney injury post coronary angiography, recommend IV fluids pre and postprocedure to protect kidney, and furosemide bolus after procedure # DIA hemodynamically mediated on CKD Nephrology on board: Recommend protecting kidney for eventual coronary angiography if indicated by Cardiology. Indicated Lokelma, kidney ultrasound, strict I&Os and avoid nephrotoxic medication # UTI Patient has multiple history of previous UTIs. UA has plus three esterase and many bacteria. Last urine culture positive for E coli ESBL in 08/2023. Pending new urine culture Currently on empiric IV antibiotic (ceftriaxone) # Hypertension On arrival patient had approximately 160/100 mmHg of blood pressure. Currently controlled, asymptomatic # Dyslipidemia Currently on statins # Diabetes - controlled (hemoglobin A1c 6.7%) Currently on insulin sliding scale Gave advice on healthy lifestyle habits # AAA status post EVAR Monitor Goals of care discussed with patient for over 18 minutes: Full code status Discussed plan with Dr. Koehler, patient and nurses: Patient currently is asymptomatic. Completed PCI with placement of two in proximal and mid LAD. Presents high-risk of requiring hemodialysis after coronary angiography, appreciate nephrology and Cardiology input. Patient has poor prognosis Plan discussed with: Patient, Other (Nurses) My Orders My Orders Orders - RAMU OROZCO Procedure Category Date Status Time Urine Bacterial MAKI 04/30/24 In Process Culture 19:26 Magnesium Sulfate PHA 05/01/24 Logged 1gm/100ml 15:15 Furosemide Injection PHA 05/01/24 Logged (Lasix Injection) 15:15 Date of Service: May 01, 2024 Billing Provider: CLAUDIA KOEHLER MD Common Visit Codes: [id number] INP/OBS CARE(HIGH) RAMU OROZCO RESIDENT May 01, 2024 16:59 CLAUDIA KOEHLER MD May 08, 2024 11:42
[2024-05-01] MEDS: MAGNESIUM SULFATE 1GM/100ML 100 ML IV ONE (17:24)
[2024-05-02] VITALS (9 sets, daily range): BP systolic 104–144; BP diastolic 52–79; PULSE 71–96; RESP 14–19; TEMP 36.4; O2SAT 93–98
[2024-05-02 06:49] LABS: Alanine Aminotransferase 38 U/L (7-40); Albumin 4.5 g/dL (3.2-4.8); Alkaline Phosphatase 49 U/L (46-116); Anion Gap 11 (5-15); Bilirubin, Total 0.5 mg/dL (0.2-1.0); Calcium 9.9 mg/dL (8.7-10.4); Carbon Dioxide 25 mmol/L (20-31); Chloride 105 mmol/L (98-107); Phosphorus 3.3 mg/dL (2.4-5.1); Potassium 4.1 mmol/L (3.5-5.1); Sodium 141 mmol/L (136-145); Total Protein 7.2 g/dL (5.7-8.2)
[2024-05-02 06:55] LABS: Aspartate Aminotransferase 77 U/L (13-40); Blood Urea Nitrogen 40 mg/dL (9-23); Glucose 145 mg/dL (74-106); Magnesium 1.5 mg/dL (1.6-2.6)
[2024-05-02 06:59] LABS: Basophils # (auto) 0.1 10 ^3/uL (0-0.2); Basophils % (auto) 0.5 % (0.0-2.0); Eosinophils # (auto) 0.2 10 ^3/uL (0-0.8); Eosinophils % (auto) 1.9 % (0.0-7.0); Hematocrit 45.9 % (41.0-53.0); Hemoglobin 15.1 g/dL (13.5-17.5); Lymphocytes # (auto) 1.4 10 ^3/uL (0.4-5.4); Lymphocytes % (auto) 13.5 % (10.0-50.0); Mean Corpuscular Hemoglobin 29.1 pg (28.0-32.0); Mean Corpuscular Hgb Conc. 32.9 g/dL (32.0-36.0); Mean Corpuscular Volume 88.4 fL (80.0-100.0); Monocytes # (auto) 0.9 10 ^3/uL (0-1.3); Monocytes % (auto) 8.3 % (0.0-12.0); Neutrophils # (auto) 7.8 10 ^3/uL (1.6-8.6); Neutrophils % (auto) 75.8 % (37.0-80.0); Nucleated Red Blood Cells % 0.2 %; Platelet Count (auto) 280 10^3/uL (140-450); Red Blood Cells 5.19 10^6/uL (4.5-5.90); Red Cell Distribution Width 13.5 % (11.8-14.3); White Blood Cell 10.3 10^3/uL (4.4-10.8)
--- NOTE | 2024-05-02 07:02 | DVHPN2 ---
Progress Note Date Seen: May 02, 2024 Medical Necessity Reason Pt with a Central, PICC or Fol: No Subjective Patient reports: Feels better Other Systems: feels very well creat improved Objective vital signs Vital Sign Date Time Temp Pulse Resp B/P (MAP) Pulse Ox O2 Delivery O2 Flow Rate FiO2 05/02/24 05:00 97.8 71 19 144/79 (100) 96 97.8 05/01/24 20:00 Room Air* 0 21 Total Intake and Output 05/01/24 05/01/24 05/02/24 15:00 23:00 07:00 Intake Total 125 ml 700 ml 200 ml Output Total 100 ml 3000 ml Balance 125 ml 600 ml -2800 ml medications Current Medications Medications Dose Ordered Sig/Lavell Route Start Time Stop Time Status Last Admin Dose Admin Aspirin 81 mg DAILY PO 04/30/24 10:00 04/30/24 09:45 81 MG Amlodipine Besylate 5 mg DAILY PO 04/30/24 10:00 04/30/24 09:45 5 MG Hydralazine HCl 10 mg Q6HP PRN IV 04/29/24 21:45 Diagnostic Test (Pha) 1 strip ACHS 04/29/24 22:00 05/02/24 05:59 1 STRIP Insulin Human Regular HS SC 04/29/24 22:00 05/01/24 21:42 4 UNITS Insulin Human Regular AC SC 04/30/24 07:00 05/02/24 06:04 2 UNITS Dextrose 50 ml UD PRN IV 04/29/24 21:45 Sodium Chloride 10 ml Q8HR IV 04/29/24 22:00 05/01/24 06:34 10 ML Acetaminophen/ Hydrocodone Bitart 1 tab Q4HP PRN PO 04/29/24 21:45 Ondansetron HCl 4 mg Q4HP PRN IV 04/29/24 21:45 Docusate Sodium 100 mg BIDPRN PRN PO 04/29/24 21:45 Acetaminophen 650 mg Q6HP PRN PO 04/29/24 21:45 Nitroglycerin 0.4 mg Q5MINP PRN SL 04/29/24 23:45 Morphine Sulfate 2 mg Q30M PRN IV 04/29/24 23:45 Atorvastatin Calcium 80 mg HS PO 04/30/24 22:00 05/01/24 21:32 80 MG Ceftriaxone Sodium 50 ml @ 100 mls/hr DAILY@09 IV 05/01/24 09:00 05/01/24 09:18 100 MLS/HR Sodium Chloride 1,000 ml @ 125 mls/hr Q8H IV 05/01/24 14:30 Examination: GENERAL:Abnormal, HEENT:Abnormal, LUNGS:Abnormal, CVS:Abnormal, ABDOMEN:Abnormal laboratory and microbiology Laboratory Tests 05/02/24 05:13 Test 05/02/24 05:13 Range/Units Serum Glucose 145 H 74-106 mg/dL Microbiology Date/Time Source Procedure Growth Status 04/30/24 07:36 Voided Urine Urine Culture - Preliminary Resulted Problem List/Assessment/Plan Problem List/Assessment/Plan nstemi 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 htn HL hx of AAA s/p cath and pci to prox LAD 2 stents placed abvout 100 cc of contrast used, IVF given prn lasix cont dapt BB statin close monitoring dc IVF iv lasix x1 cont dapt dc home when medically stable outpt fu with his cards 1 week Plan discussed with: Patient My Orders My Orders Orders - BOGDAN COWAN MD Procedure Category Date Status Time Communication Order ORDERS 05/01/24 Transmitted 08:07 Cl Left Heart Cath CL 05/01/24 Taken 11:56 Post Cath Vital Signs JANEL 05/01/24 In Process Q 15min Post Cath Activity JANEL 05/01/24 In Process Protocol 14:31 Communication Order ORDERS 05/01/24 Transmitted 14:31 Communication Order ORDERS 05/01/24 Transmitted 14:47 Sodium Chloride 0.9% PHA 05/01/24 In Process 14:30 Furosemide Injection PHA 05/02/24 Verified (Lasix Injection) 07:00 Date of Service: May 02, 2024 Billing Provider: BOGDAN COWAN MD Common Visit Codes: NOT BILLABLE BOGDAN COWAN MD May 02, 2024 07:01
[2024-05-02] MEDS ORDERED: ATOR20TA50 PO (09:57)
[2024-05-02] MEDS ORDERED: METO-6 PO (09:57)
[2024-05-02] MEDS ORDERED: AML5T PO (09:57)
[2024-05-02] MEDS ORDERED: CLOP75TA70 PO (09:57)
[2024-05-02] MEDS ORDERED: ACET-1882 PO (09:57)
[2024-05-02] MEDS ORDERED: ASPI-325 PO (09:57)
[2024-05-02] MEDS ORDERED: EMPA1TAB PO (09:57)
[2024-05-02] MEDS: MAGNESIUM OXIDE 400 MG TAB PO ONE (10:09)
[2024-05-02] MEDS: CLOPIDOGREL BISULFATE 75 MG TAB PO SCH (10:10)
[2024-05-02] MEDS: METOPROLOL SUCCINATE XL 50 MG TAB PO SCH (10:11)
[2024-05-02] MEDS: EMPAGLIFLOZIN 10 MG TAB PO SCH (10:11)
[2024-05-02] MEDS: FUROSEMIDE 20 MG/2 ML VIAL IV ONE (10:12)
[2024-05-02] MEDS: ERTAPENEM SOD INJ 0.5 GM in SODIUM CHL 0.9% 50 ML IV SCH (11:34)
--- NOTE | 2024-05-02 13:00 | DVHPN2 ---
Progress Note Date Seen: May 02, 2024 Medical Necessity Reason Pt with a Central, PICC or Fol: No Objective vital signs Vital Sign Date Time Temp Pulse Resp B/P (MAP) Pulse Ox O2 Delivery O2 Flow Rate FiO2 05/02/24 12:21 36.4 76 18 96 05/02/24 10:12 131/69 05/01/24 20:00 Room Air* 0 21 Total Intake and Output 05/01/24 05/01/24 05/02/24 15:00 23:00 07:00 Intake Total 125 ml 700 ml 200 ml Output Total 100 ml 3000 ml Balance 125 ml 600 ml -2800 ml medications Current Medications Medications Dose Ordered Sig/Lavell Route Start Time Stop Time Status Last Admin Dose Admin Aspirin 81 mg DAILY PO 04/30/24 10:00 05/02/24 10:10 81 MG Amlodipine Besylate 5 mg DAILY PO 04/30/24 10:00 05/02/24 10:09 5 MG Hydralazine HCl 10 mg Q6HP PRN IV 04/29/24 21:45 Diagnostic Test (Pha) 1 strip ACHS 04/29/24 22:00 05/02/24 11:46 1 STRIP Insulin Human Regular HS SC 04/29/24 22:00 05/01/24 21:42 4 UNITS Insulin Human Regular AC SC 04/30/24 07:00 05/02/24 11:48 6 UNITS Dextrose 50 ml UD PRN IV 04/29/24 21:45 Sodium Chloride 10 ml Q8HR IV 04/29/24 22:00 05/01/24 06:34 10 ML Acetaminophen/ Hydrocodone Bitart 1 tab Q4HP PRN PO 04/29/24 21:45 Ondansetron HCl 4 mg Q4HP PRN IV 04/29/24 21:45 Docusate Sodium 100 mg BIDPRN PRN PO 04/29/24 21:45 Acetaminophen 650 mg Q6HP PRN PO 04/29/24 21:45 Nitroglycerin 0.4 mg Q5MINP PRN SL 04/29/24 23:45 Morphine Sulfate 2 mg Q30M PRN IV 04/29/24 23:45 Atorvastatin Calcium 80 mg HS PO 04/30/24 22:00 05/01/24 21:32 80 MG Clopidogrel Bisulfate 75 mg DAILY PO 05/02/24 10:00 05/02/24 10:10 75 MG Empaglifozin 10 mg DAILY PO 05/02/24 10:00 05/02/24 10:11 10 MG Metoprolol Succinate 25 mg DAILY PO 05/02/24 10:00 05/02/24 10:11 25 MG Ertapenem 0.5 gm/ Sodium Chloride 50 ml @ 100 mls/hr DAILY IV 05/02/24 10:00 05/02/24 11:34 100 MLS/HR Examination: GENERAL:Normal, CVS:Abnormal laboratory and microbiology Laboratory Tests 05/02/24 05:13 Test 05/02/24 05:13 Range/Units Serum Glucose 145 H 74-106 mg/dL Microbiology Date/Time Source Procedure Growth Status 04/30/24 07:36 Voided Urine Urine Culture - Final Escherichia coli - ESBL Complete Problem List/Assessment/Plan Problem List/Assessment/Plan Acute kidney injury superimposed Chronic Kidney Disease secondary hemodynamic mediated NSTEMI Hypertension Hyperkalemia Hypomagnesemia lasix IV today renal function slightly improved We will follow cardiology recommendations Renal diet magnesium replacement Ultrasound of the kidney and bladder- atrophic kidney Plan discussed with: Patient GUILLE DAVISON MD May 02, 2024 13:00
--- NOTE | 2024-05-02 13:01 | ECG ---
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
--- NOTE | 2024-05-02 13:56 | ECG ---
[facility] Test Date: 2024-04-30 Test Time: 15:07:15 Pat Name: EDI WALSH Department: ER Room: 0246T A Gender: M Travel Rn Or: ER : 1940 Requested By: ELMA TODD Order Number: [id number] Reading MD: Charlie Villanueva Measurements Intervals [place] Rate: 58 P: 26 UT: 214 QRS: 53 QRSD: 108 T: 62 QT: 425 QTc: 418 Interpretive Statements Sinus rhythm Borderline prolonged UT interval Anterior infarct, age indeterminate Electronically Signed On 05-06-2024 16:56:16 PST by Charlie Villanueva Please click the below link to view image of tracing.
--- NOTE | 2024-05-02 14:52 | DVHDSRES ---
Discharge Summary Date of Admission Resident Creating Document: RAMU OROZCO RESIDENT Apr 29, 2024 at 23:42 Date of Discharge: May 02, 2024 Labs/Diagnostic Data: Laboratory Results Test 05/02/24 11:45 05/02/24 05:13 05/01/24 09:41 04/30/24 11:50 POC Glucose 227 mg/dl (70-106) White Blood Count 10.3 10^3/uL (4.4-10.8) Red Blood Count 5.19 10^6/uL (4.5-5.90) Hemoglobin 15.1 g/dL (13.5-17.5) Hematocrit 45.9 % (41.0-53.0) Mean Corpuscular Volume 88.4 fL (80.0-100.0) Mean Corpuscular Hemoglobin 29.1 pg (28.0-32.0) Mean Corpuscular Hemoglobin Concent 32.9 g/dL (32.0-36.0) Red Cell Distribution Width 13.5 % (11.8-14.3) Platelet Count 280 10^3/uL (140-450) Mean Platelet Volume 8.8 fL (6.9-10.8) Neutrophils (%) (Auto) 75.8 % (37.0-80.0) Lymphocytes (%) (Auto) 13.5 % (10.0-50.0) Monocytes (%) (Auto) 8.3 % (0.0-12.0) Eosinophils (%) (Auto) 1.9 % (0.0-7.0) Basophils (%) (Auto) 0.5 % (0.0-2.0) Neutrophils # (Auto) 7.8 10 ^3/uL (1.6-8.6) Lymphocytes # (Auto) 1.4 10 ^3/uL (0.4-5.4) Monocytes # (Auto) 0.9 10 ^3/uL (0-1.3) Eosinophils # (Auto) 0.2 10 ^3/uL (0-0.8) Basophils # (Auto) 0.1 10 ^3/uL (0-0.2) Nucleated Red Blood Cells 0.2 % Sodium Level 141 mmol/L (136-145) Potassium Level 4.1 mmol/L (3.5-5.1) Chloride Level 105 mmol/L (98-107) Carbon Dioxide Level 25 mmol/L (20-31) Anion Gap 11 (5-15) Blood Urea Nitrogen 40 mg/dL (9-23) Creatinine 2.11 mg/dL (0.700-1.30) Glomerular Filtration Rate Calc 30 mL/min (>90) BUN/Creatinine Ratio 19.0 (10.0-20.0) Serum Glucose 145 mg/dL (74-106) Calcium Level 9.9 mg/dL (8.7-10.4) Phosphorus Level 3.3 mg/dL (2.4-5.1) Magnesium Level 1.5 mg/dL (1.6-2.6) Total Bilirubin 0.5 mg/dL (0.2-1.0) Aspartate Amino Transferase (AST) 77 U/L (13-40) Alanine Aminotransferase (ALT) 38 U/L (7-40) Alkaline Phosphatase 49 U/L (46-116) Total Protein 7.2 g/dL (5.7-8.2) Albumin 4.5 g/dL (3.2-4.8) Prothrombin Time 11.9 sec (9.3-11.8) Prothrombin Time INR 1.14 (0.9-1.15) Activated Partial Thromboplast Time 33.0 SEC (24.5-34.5) Lactic Acid Level 1.7 mmol/L (0.4-2.0) Test 04/30/24 09:27 04/30/24 07:36 04/30/24 05:00 Hemoglobin A1c 6.7 % A1C (<5.7) Thyroid Stimulating Hormone (TSH) 1.34 uIU/mL (0.55-4.78) Urine Opiates Screen Neg (NEGATIVE) Urine Fentanyl Screen Neg (NEGATIVE) Urine Barbiturates Screen Neg (NEGATIVE) Urine Phencyclidine Screen Neg (NEGATIVE) Urine Amphetamines Screen Neg (NEGATIVE) Urine Benzodiazepines Screen Neg (NEGATIVE) Urine Cocaine Screen Neg (NEGATIVE) Urine Cannabinoids Screen Neg (NEGATIVE) Urine Color Light-yellow (Yellow) Urine Clarity Turbid (Clear) Urine pH 5.5 (5.0-9.0) Urine Specific [place] 1.015 (1.001-1.035) Urine Protein Trace (Negative) Urine Ketones Negative (Negative) Urine Blood Trace /uL (Negative) Urine Nitrite Negative (Negative) Urine Bilirubin Negative (Negative) Urine Urobilinogen Normal mg/dL (Negative) Urine Leukocyte Esterase 3+ /uL (Negative) Urine RBC 4 /hpf (0 - 3) Urine Microscopic WBC 129 /HPF (0-3) Urine Squamous Epithelial Cells Few /hpf (<5) Urine Bacteria Many /hpf (None Seen) Urine Hyaline Casts Few /lpf (0 - 2) Urine Glucose Normal mg/dL (Normal) Troponin I High Sensitivity 56907 ng/L (</=54) Other Laboratory Tests 05/02/24 05:13 Brief Hx & Hospital Course: Suhail Reis is a 83 year old male who presents to ED via EMS with chief complaint of retrosternal oppressive chest pain with no radiation, intensity 11/15, in functional class IV associated with dyspnea, presented to the hosptial with chest pain. Patient received in ambulance medical treatment (aspirin and sublingual nitroglycerin) improving his symptoms EKG shows sinus bradycardia with prolonged AL, septal infarct with negative T-waves in anterior- lateral leads. Patient does not recall completing previous coronary angiography (he believes that it was completed when he completed the EVAR treatment over at [facility]). Denies palpitation, syncope, fever, chills, nausea, vomiting, diarrhea, recent travel, sick contacts, dysuria and motor or sensory deficits. Past Medical History: Hypertension, dyslipidemia, diabetes, chronic kidney disease stage 3, AAA status post EVAR in 2008, multiple UTIs Surgical History: 2009 AAA repair with EVAR Family History: Noncontributory Denies pertinent family cardiac history Social History: Lives with family in [place]. Denies current tobacco, alcohol and other drug abuse Allergies: Denies Home medication: Codeine, Bactrim, clindamycin, Brief hospital course: Moderate risk NSTEMI type 1 (GRACIELA: 134, KEITH: 4, CRUSADE: 42) with EKG that shows negative symmetrical T-waves in anterior leads associated with DIA on CKD and UTI, requiring on admission triple therapy (aspirin, clopidogrel and heparin), empiric IV antibiotics and anti ischemic medication. Evaluated by Cardiology and Nephrology specialist who decided to optimize kidney protection, and indicated posterior coronary angiography, which showed proximal LAD 99% and 90% stenosis in tandem, distal LAD 50%, proximal RCA 60%, proximal circumflex 60%, completed PCI to proximal LAD and mid LAD with 2 MIKE. Cardiology recommended dap for at least one year, risk factor modification with medical management and follow-up with drug regulatory affairs specialist. Completed echocardiogram which showed severe LV dysfunction with LVEF of foot 25%, severe hypokinetic apex and septum, low/normal RV function, LAE, could not optimize GDM T for HFrEF due to kidney function (patient is currently on metoprolol and empagliflozin, pending Entresto and spironolactone, titrate once kidney function improves). Patient presented urine culture positive for E coli ESBL, indicated midline placement and IV antibiotics with ertapenem, complete course with for 10 days with home health. Patient hemodynamically stable, asymptomatic, in condition to be discharged home with home health. Was granted under optimal medical therapy (incomplete GDM T for HFrEF, DAPT and ertapenem), gave her advice on healthy lifestyle habits. And follow up as outpatient with PCP, necktie maker, vascular radiologist and eventual urologist (was planning to remove bladder stones with surgery, we will have to defer after a year due to DAPT). DIAGNOSIS # NSTEMI type 1 (GRACIELA: 134, KEITH: 4, CRUSADE: 42) # UTI to E coli ESBL # DIA hemodynamically mediated on CKD # Bladder stones # Hypertension # Dyslipidemia # Diabetes - controlled (hemoglobin A1c 6.7%) # AAA status post EVAR Examination Patient lying in bed, in no acute distress General: Lucid, afebrile, mucosae are moist Cardiovascular: Normal S1 and S2. No murmurs, gallops or rubs. Left puncture site with no hematoma. Has radial stop device Respiratory: Normal ventilation mechanics. Clear lung sounds on auscultation Abdomen: Prominent, Soft, nontender, no organomegaly, normal bowel sounds MSK/skin: Mobilizes 4 limbs. Skin is dry and warm. Patient has well-perfused Neurological: Oriented in 3 spheres. No motor no sensitive deficits. Pupils are isocoric and reactive Goals of care discussed with patient for over 18 minutes: Full code status Discussed plan with Dr. Villafana, patient and nurses Operations or Procedures CHEST RADIOGRAPH Indication: chest pain Technique: Single frontal view of the chest was obtained COMPARISON: None FINDINGS: Lines and Tubes: None Lungs: No evidence of pulmonary infiltrates or edema. Pleura: No effusion. No pneumothorax. Cardiomediastinal contours: Unremarkable IMPRESSION: No acute disease. ATED BY: TERRENCE MAYES MD DICTATED DATE/TIME: 04/29/242053 INDICATION: DIA TECHNIQUE: Multiple real-time sonographic images of the kidneys and bladder were obtained. COMPARISON: None FINDINGS: The right kidney measures 8 cm in length, atrophic . There is normal echogenicity of the right kidney. No hydronephrosis. The left kidney measures 12 cm in length, which is normal in size. There is normal echogenicity of the left kidney. No hydronephrosis. Shadowing stone seen within the bladder. These measure up to 2 cm. Prior to voiding the bladder volume measures volume 186 cc. Following voiding, the bladder volume residual measures cc. IMPRESSION: 1. Atrophic right kidney. 2. Bladder stones are visualized. ATED BY: ALISA PAEZ MD DICTATED DATE/TIME: 05/01/24 1304 EXAM: LIMITED Two-dimensional and M-mode echocardiogram with Doppler and color Doppler. Blood Pressure: 134/72 mmHg INDICATION NSTEMI RISK FACTORS Height: 6', Weight: 206 DIMENSIONS LVDd 5.0 (3.8-5.7cm) LA (2D) 3.8 (1.9-4.0cm) Aortic Root 3.7 (2.0- 3.7cm) LVDs 4.3 (2.5-4.0cm) LA (MM) (1.9-4.0cm) Aortic Cusp Exc 1.9 (1.5- 2.0cm) EF (%) 30.0 (55-70%) Rt. Atrium (1.9-4.0cm) Asc. Aorta cm IVSd 1.3 (0.7-1.1cm) RV (D) (1.8-2.4cm) PWd 1.0 (0.7-1.1cm) Mitral Valve Mitral Mitral Stenosis E wave 0.70m/s MV Mean GR. mmHg A wave 1.20m/s MV Peak GR. mmHg E/A ratio 0.6 2D MVA cm2 Aortic Valve Aortic Valve Aortic Stenosis V1 1.10m/s AO Mean GR. 3mmHg V2 1.20m/s AO Peak GR. 5mmHg LVOT Diameter 2.6 (1.8-2.4cm) Doppler GRACIE 4.86cm2 AI P 03/09 Time 1152.07ms Other Information Quality : Technically Limited Rhythm : Technically limited study due to body habitus. Conclusion severe LV dysfunction lvef 25% by visual estimate severe hypokinetic apex and septum low normal RV function left atrium enlarged SIGNED BY: JOSE COWAN MD SIGNED DATE/TIME: 05/01/24 0814 Operative Report Operative Report CARDIAC METALLURGICAL LAB TECHNICIAN PROCEDURE REPORT [place], [place] Date of Service: 05/01/24 Asphalt Raker: Jose Cowan MD PROCEDURES PERFORMED: Coronary angiogram, left heart catheterization, conscious sedation administration and supervision, less than 15 minutes; fluoroscopy use and interpretation. conscious sedation 15-30m ins, 31-45 mins, 46-60 mins, PTCA1 vessel, PCI 1 vessel, acute CO intervention, intracoronary injection nitroglycerin PREOPERATIVE DIAGNOSES: NSTEMI POSTOP DIAGNOSIS: NSTEMI DESCRIPTION OF PROCEDURE: The patient or appropriate family signed informed consent understanding the risks, benefits and alternatives of the procedure, they wished to proceed. The patient was brought to the cardiac labor arbitrator in n.p.o. state. The patient was prepped in a sterile fashion. Sedation was used per cardiac cath protocol. I administered 2 mL of 2% lidocaine to the right wrist. With an antegrade front wall puncture. I cannulated the right radial artery but I couldnt wire despite excellent flow. I tried another time and again excellent flow but couldnt wire given severe calcium in his radial artery. THerefore I held 5 mins pressure and accessed the L Radial artery after giving 1 cc lidocaine to wrist. I then and placed a 6- [place] Glidesheath slender. Next, an intra-arterial spasmolytic was administered. Next, a - 6French JR4, JL4 and XB 3.5 and were used for coronary angiogram and LVEDP measurement and pressure pullback. At the completion of procedure, all guides and wires were removed, and there were no immediate complications. FINDINGS: RCA: Moderate vessel off the right sinus of Valsalva, there is a prox to mid 60% stenosis. very tortuous vessel. distal RCA has diffuse small vessel disease. LEFT MAIN: Moderate size left main, it bifurcates into LAD and circumflex. no severe stenosis CIRCUMFLEX: Moderate caliber vessel coming off the left main with no flow limiting stenosis. prox CX is patent. OM1 has a 60% stenosis . mid CX is patent . LAD: LAD is a moderate caliber vessel coming of the left main. prox LAD has a tandem 99% and 90% calcifics stenosis in the mid portion at Diag bifurcation . distal LAD has a tandem 50% stenosis. INTERVENTION: We decided to proceed with coronary intervention. I started with a 6F __ XB 3.5 __ Guide to intubate the LM __. Angiomax bolus and gtt was started. Following this, I decided to wire using an .014 BMW across the culprit lesion with ease. At this time, we performed balloon angioplasty with a _2.5 x 15 mm balloon __10 ___ ATMS over __15__ seconds w2 __ number of inflations. Following this, I decided to place two stents as there was prox and mid disease stent using a 3.0 x 30 mm onyx____ stent inflated up to __18___ ATMS over 15 seconds with two separate inflations. Following this, the stent balloon removed and angio performed showing 0% residual stenosis. Then I stented using a 3.0 x 18 mm with 2-3 mm overlap and inflated to 18 atms twice each 15 seconds. then i ptca between 2 stents. then 200 mcg of IC nitro given. No severe complications with excellent results. KEITH pre/post: 3./3 CONCLUSIONS: 1. sp pci to 99% prox LAD and 90% mid LAD stenosis with 2 MIKE PLAN: Aggressive risk factor modification and medical management for the patient. DAPT x 1 year uninterrupted JOSE COWAN MD May 01, 2024 14:53 DICTATED BY:JOSE COWAN MD DICTATED DATE/TIME:05/01/24 1753 Condition at Discharge: Fair Final Diagnosis/Problems List # NSTEMI type 1 (GRACIELA: 134, KEITH: 4, CRUSADE: 42) # UTI to E coli ESBL # DIA hemodynamically mediated on CKD # Bladder stones # Hypertension # Dyslipidemia # Diabetes - controlled (hemoglobin A1c 6.7%) # AAA status post EVAR Discharge Disposition: Home with Health Services SNF Discharge Will this Physician continue t: No Discharge Instruct/Medications Diet: Consistent carbohydrate, Cardiac 2g Na,low cholest, Renal Activity: No Restrictions, As Tolerated Follow Up/Referral: PCP Cardiology Nephrology Urology Medications: DAPT for ate least 1 year (ASA and Clopidogrel) On Empagliflozin and Metoprolol. No complete GDMT (ENtresto nor Spironolactone) because of kidney function Ertapenem for 7 days Discharge Statement: "Patient was advised to return to the ER or call 911 if any headaches, dizziness, shortness of breath, chest pain, abdominal pain, bleeding, fevers, or worsening of medical condition. Patient was counseled about treatment plan, medications, possible side effects, patientverbalized understanding. All questions were answered to the best of my ability. This discharge took greater then 30 minutes in planning, reviewing documentation, counseling the patient, and discussing with other team members." ASSESSMENT ASSESSMENT Assessment NSTEMI type I associated with UTI Date of Service: May 02, 2024 Billing Provider: CLAUDIA VILLAFANA MD Common Visit Codes: 65224-HBD/OBS DISCH DAY >30min RAMU OROZCO RESIDENT May 02, 2024 14:52 CLAUDIA VILLAFANA MD May 08, 2024 11:43
[2024-05-03 04:12] VITALS: BP 132/70; PULSE 91; RESP 17; TEMP 98.2; O2SAT 96
--- NOTE | 2024-05-03 07:21 | DVHPNRES ---
Progress Note Date Seen: May 03, 2024 Resident Creating Document: RAMU OROZCO RESIDENT Medical Necessity Reason Pt with a Central, PICC or Fol: No Subjective Review of Systems Suhail Reis is a 83 year old male who presents to ED via EMS with chief complaint of retrosternal oppressive chest pain with no radiation, intensity 9/10, in functional class IV associated with dyspnea, presented to the hosptial with chest pain. Patient received in ambulance medical treatment (aspirin and sublingual nitroglycerin) improving his symptoms EKG shows sinus bradycardia with prolonged MS, septal infarct with negative T-waves in anterior- lateral leads. Patient does not recall completing previous coronary angiography (he believes that it was completed when he completed the EVAR treatment over at [facility]). Denies palpitation, syncope, fever, chills, nausea, vomiting, diarrhea, recent travel, sick contacts, dysuria and motor or sensory deficits. Past Medical History: Hypertension, dyslipidemia, diabetes, chronic kidney disease stage 3, AAA status post EVAR in 2008, multiple UTIs Surgical History: 2009 AAA repair with EVAR Family History: Noncontributory Denies pertinent family cardiac history Social History: Lives with family in [place]. Denies current tobacco, alcohol and other drug abuse Allergies: Denies Home medication: Codeine, Bactrim, clindamycin, Patient seen and examined at bedside. Patient completed angiography which showed proximal LAD 99% and 90% stenosis in tandem, distal LAD 50%, proximal RCA 60%, proximal circumflex 60%. PCI to proximal LAD and mid LAD with 2 MIKE. Postponed discharge due to pending Home health due to UTI to E. coli ESBL (arranging home IV antibiotics) Objective vital signs Vital Sign Date Time Temp Pulse Resp B/P (MAP) Pulse Ox O2 Delivery O2 Flow Rate FiO2 05/03/24 04:12 98.2 91 17 132/70 (90) 96 98.2 05/02/24 20:00 Room Air* 0 21 Total Intake and Output 05/02/24 05/02/24 05/03/24 15:00 23:00 07:00 Intake Total 690 ml 790 ml 325 ml Output Total 1150 ml 650 ml Balance 690 ml -360 ml -325 ml medications Current Medications Medications Dose Ordered Sig/Lavell Route Start Time Stop Time Status Last Admin Dose Admin Aspirin 81 mg DAILY PO 04/30/24 10:00 05/02/24 10:10 81 MG Amlodipine Besylate 5 mg DAILY PO 04/30/24 10:00 05/02/24 10:09 5 MG Hydralazine HCl 10 mg Q6HP PRN IV 04/29/24 21:45 Diagnostic Test (Pha) 1 strip ACHS 04/29/24 22:00 05/03/24 06:13 1 STRIP Insulin Human Regular HS SC 04/29/24 22:00 05/02/24 22:00 4 UNITS Insulin Human Regular AC SC 04/30/24 07:00 05/03/24 06:16 3 UNITS Dextrose 50 ml UD PRN IV 04/29/24 21:45 Sodium Chloride 10 ml Q8HR IV 04/29/24 22:00 05/03/24 06:16 10 ML Acetaminophen/ Hydrocodone Bitart 1 tab Q4HP PRN PO 04/29/24 21:45 Ondansetron HCl 4 mg Q4HP PRN IV 04/29/24 21:45 Docusate Sodium 100 mg BIDPRN PRN PO 04/29/24 21:45 Acetaminophen 650 mg Q6HP PRN PO 04/29/24 21:45 Nitroglycerin 0.4 mg Q5MINP PRN SL 04/29/24 23:45 Morphine Sulfate 2 mg Q30M PRN IV 04/29/24 23:45 Atorvastatin Calcium 80 mg HS PO 04/30/24 22:00 05/02/24 21:48 80 MG Clopidogrel Bisulfate 75 mg DAILY PO 05/02/24 10:00 05/02/24 10:10 75 MG Empaglifozin 10 mg DAILY PO 05/02/24 10:00 05/02/24 10:11 10 MG Metoprolol Succinate 25 mg DAILY PO 05/02/24 10:00 05/02/24 10:11 25 MG Ertapenem 0.5 gm/ Sodium Chloride 50 ml @ 100 mls/hr DAILY IV 05/02/24 10:00 05/02/24 11:34 100 MLS/HR Examination Patient lying in bed, in no acute distress General: Lucid, afebrile, mucosae are moist Cardiovascular: Normal S1 and S2. No murmurs, gallops or rubs. Left puncture site with no hematoma. Has radial stop device Respiratory: Normal ventilation mechanics. Clear lung sounds on auscultation Abdomen: Prominent, Soft, nontender, no organomegaly, normal bowel sounds MSK/skin: Mobilizes 4 limbs. Skin is dry and warm. Patient has well-perfused Neurological: Oriented in 3 spheres. No motor no sensitive deficits. Pupils are isocoric and reactive laboratory and microbiology Laboratory Tests 05/02/24 05:13 Test 05/02/24 05:13 Range/Units Serum Glucose 145 H 74-106 mg/dL Microbiology Date/Time Source Procedure Growth Status 04/30/24 07:36 Voided Urine Urine Culture - Final Escherichia coli - ESBL Complete Problem List/Assessment/Plan Problem List/Assessment/Plan # NSTEMI probable type 1 Patient required on admissionon triple therapy (aspirin, clopidogrel and heparin drip) and statin treatment EKG shows sinus bradycardia with prolonged MS, septal infarct and negative symmetrical T-waves in anterolateral leads. Positive troponin curve (507, 777, 5382, 53105) Completed echocardiogram: Severe LV dysfunction, LVEF 25%, severe hypokinetic apex and septum, low/normal RV function, left atrium enlargement Cardiology on board: Currentlty on DAPT, discontinued Heparin drip, completed angiography which showed proximal LAD 99% and 90% stenosis in tandem, distal LAD 50%, proximal RCA 60%, proximal circumflex 60%. PCI to proximal LAD and mid LAD with 2 MIKE. Recommend aggressive risk factor modification with medical management, DAPT for at least one year Nephrology evaluated the patient: Patient is high-risk for acute kidney injury post coronary angiography, recommend IV fluids pre and postprocedure to protect kidney, and furosemide bolus after procedure # DIA hemodynamically mediated on CKD Nephrology on board: Recommend protecting kidney for eventual coronary angiography if indicated by Cardiology. Indicated Lokelma, kidney ultrasound, strict I&Os and avoid nephrotoxic medication # UTI Patient has multiple history of previous UTIs. UA has plus three esterase and many bacteria. Urine culture presents E. coli ESBL Currently on adjusted IV antibiotic (Ertapenem) Arranging discharge with home health to complete 10 days of IV antibiotics with Ertapenem # Hypertension On arrival patient had approximately 160/100 mmHg of blood pressure. Currently controlled, asymptomatic # Dyslipidemia Currently on statins # Diabetes - controlled (hemoglobin A1c 6.7%) Currently on insulin sliding scale Gave advice on healthy lifestyle habits # AAA status post EVAR Monitor Goals of care discussed with patient for over 18 minutes: Full code status Discussed plan with Dr. Koehler, patient and nurses: Patient currently is asymptomatic. Completed PCI with placement of two in proximal and mid LAD. Presents high-risk of requiring hemodialysis after coronary angiography, appreciate nephrology and Cardiology input. Postponed discharge to arrange home health to continue IV antibiotics due to UTI secondary to E. coli ESBL Plan discussed with: Patient, Other (Nurses) My Orders My Orders Orders - RAMU OROZCO Procedure Category Date Status Time Empagliflozin PHA 05/02/24 In Process (Jardiance) 10:00 Metoprolol Xl PHA 05/02/24 In Process Succinate (Toprol Xl) 10:00 Insert Midline ORDERS 05/02/24 Transmitted 09:38 Ertapenem Sod Inj PHA 05/02/24 In Process (Invanz) 10:00 Discharge DISCHARGE 05/02/24 Transmitted 09:48 Date of Service: May 31, 2024 Billing Provider: CLAUDIA KOEHLER MD Common Visit Codes: 75767-CWJ/OBS DISCH DAY >30min RAMU OROZCO RESIDENT May 03, 2024 07:21 CLAUDIA KOEHLER MD May 08, 2024 11:44
[2024-05-03 08:00] VITALS: PULSE 78; PULSE 88; RESP 18; O2SAT 98
[2024-05-03 09:02] VITALS: BP 110/61; PULSE 83; RESP 20; TEMP 97.4; O2SAT 93
== END 2024-05-03 14:00 | disposition home health service (06) | DRG 321 ==
LOC: ER 20:28 → EDBD 20:28 → OVERFLOW 23:42 → TELE-EAST 05-01 15:59
PROVIDERS: ADMIT Student in an Organized Health Care Education/Training Program; ATTEND Student in an Organized Health Care Education/Training Program
PROC: 4A023N7 Measurement of Cardiac Sampling and Pressure, Left Heart, Percutaneous Approach (ICD-10-PCS; principal; 2024-05-01)
PROC: 027035Z Dilation of Coronary Artery, One Artery with Two Drug-eluting Intraluminal Devices, Percutaneous Approach (ICD-10-PCS; 2024-05-01)
PROC: B211YZZ Fluoroscopy of Multiple Coronary Arteries using Other Contrast (ICD-10-PCS; 2024-05-01)
PROC: 05HD33Z Insertion of Infusion Device into Right Cephalic Vein, Percutaneous Approach (ICD-10-PCS; 2024-05-02)
PROC: B54MZZA Ultrasonography of Right Upper Extremity Veins, Guidance (ICD-10-PCS; 2024-05-02)
DX: I21.4 Non-ST elevation (NSTEMI) myocardial infarction (principal); I50.43 Acute on chronic combined systolic (congestive) and diastolic (congestive) heart failure; N17.9 Acute kidney failure, unspecified; N39.0 Urinary tract infection, site not specified; N18.4 Chronic kidney disease, stage 4 (severe); I16.0 Hypertensive urgency; I12.9 Hypertensive chronic kidney disease with stage 1 through stage 4 chronic kidney disease, or unspecified chronic kidney disease; E87.5 Hyperkalemia; E83.42 Hypomagnesemia; N21.0 Calculus in bladder; E78.5 Hyperlipidemia, unspecified; E11.22 Type 2 diabetes mellitus with diabetic chronic kidney disease; I25.10 Atherosclerotic heart disease of native coronary artery without angina pectoris; Z79.01 Long term (current) use of anticoagulants; Z86.79 Personal history of other diseases of the circulatory system; Z79.4 Long term (current) use of insulin; Z79.899 Other long term (current) drug therapy
CPT/HCPCS: 36415; 71045; 76775; 80053; 80307; 81001; 82962; 83036; 83605; 83735; 84100; 84443; 84484; 85025; 85610; 85730; 87086; 87088; 87186; 92928; 92941; 93005; 93306; 96374; 96375; 99152; 99291; G0378; J1335; J1815; J2250; J2405; Q9967

== ENCOUNTER → 2024-05-11 | Outpatient (CLI) | payer OTHER ==
[~2024-05-11] MED LIST changes: -ACE3T PO; +ACET-1882 PO; +AML5T PO; +ASPI-325 PO; -ATEN-60 PO; +ATOR20TA50 PO; -BACDST PO; -CEPH500C PO; -CLIN1CAP70 PO; +CLOP75TA70 PO; +EMPA1TAB PO; -FENO160T PO; +FINA5TAB4 PO; +METO-6 PO; -SIMV40TA18 PO; +TAMS0.4C39 PO
[2024-05-11 10:17] LABS: Basophils # (auto) 0.1 10 ^3/uL (0-0.2); Basophils % (auto) 0.7 % (0.0-2.0); Eosinophils # (auto) 0.3 10 ^3/uL (0-0.8); Eosinophils % (auto) 3.1 % (0.0-7.0); Hematocrit 45.9 % (41.0-53.0); Hemoglobin 14.9 g/dL (13.5-17.5); Lymphocytes # (auto) 1.6 10 ^3/uL (0.4-5.4); Lymphocytes % (auto) 16.7 % (10.0-50.0); Mean Corpuscular Hgb Conc. 32.3 g/dL (32.0-36.0); Mean Corpuscular Volume 89.6 fL (80.0-100.0); Monocytes # (auto) 0.7 10 ^3/uL (0-1.3); Neutrophils # (auto) 6.6 10 ^3/uL (1.6-8.6); Neutrophils % (auto) 71.5 % (37.0-80.0); Nucleated Red Blood Cells % 0.1 %; Platelet Count (auto) 296 10^3/uL (140-450); Red Blood Cells 5.13 10^6/uL (4.5-5.90); White Blood Cell 9.3 10^3/uL (4.4-10.8)
[2024-05-11 10:56] LABS: Alanine Aminotransferase 18 U/L (7-40); Albumin 4.4 g/dL (3.2-4.8); Alkaline Phosphatase 92 U/L (46-116); Anion Gap 10 (5-15); Aspartate Aminotransferase 35 U/L (13-40); BUN/Creatinine Ratio 16.8 (10.0-20.0); Bilirubin, Total 0.5 mg/dL (0.2-1.0); Calcium 9.8 mg/dL (8.7-10.4); Carbon Dioxide 24 mmol/L (20-31); Chloride 106 mmol/L (98-107); Cholesterol 106 mg/dL (< 200); LDL Cholesterol 62 mg/dL (< 100); Potassium 3.8 mmol/L (3.5-5.1); Sodium 140 mmol/L (136-145); Total Protein 7.4 g/dL (5.7-8.2); Triglycerides 136 mg/dL (< 150)
[2024-05-11 10:59] LABS: Blood Urea Nitrogen 39 mg/dL (9-23); Glucose 184 mg/dL (74-106); HDL Cholesterol 23 mg/dL (40-59)
== END | disposition home or self-care (01) ==
LOC: LAB 09:43
PROVIDERS: ATTEND Internal Medicine
DX: I12.9 Hypertensive chronic kidney disease with stage 1 through stage 4 chronic kidney disease, or unspecified chronic kidney disease (principal); E11.22 Type 2 diabetes mellitus with diabetic chronic kidney disease; N18.4 Chronic kidney disease, stage 4 (severe); E11.21 Type 2 diabetes mellitus with diabetic nephropathy
CPT/HCPCS: 36415; 80053; 80061; 83036; 83880; 84443; 85025

== ENCOUNTER → 2024-07-21 | Outpatient (CLI) | payer OTHER | END | disposition home or self-care (01) | LOC: LAB 12:00 | PROVIDERS: ATTEND Family Medicine | DX: Z01.812 Encounter for preprocedural laboratory examination (principal); D48.5 Neoplasm of uncertain behavior of skin ==

== ENCOUNTER → 2024-08-04 | Outpatient (CLI) | payer OTHER | END | disposition home or self-care (01) | LOC: LAB 11:02 | PROVIDERS: ATTEND Family Medicine | DX: Z01.812 Encounter for preprocedural laboratory examination (principal); D48.5 Neoplasm of uncertain behavior of skin ==

== ENCOUNTER 2024-08-09 14:33 | Outpatient (CLI) | payer OTHER ==
[2024-08-09 15:33] LABS: Basophils # (auto) 0.1 10 ^3/uL (0-0.2); Basophils % (auto) 0.6 % (0.0-2.0); Eosinophils # (auto) 0.3 10 ^3/uL (0-0.8); Eosinophils % (auto) 2.5 % (0.0-7.0); Hematocrit 44.1 % (41.0-53.0); Hemoglobin 14.4 g/dL (13.5-17.5); Lymphocytes # (auto) 1.6 10 ^3/uL (0.4-5.4); Lymphocytes % (auto) 15.4 % (10.0-50.0); Mean Corpuscular Hemoglobin 28.5 pg (28.0-32.0); Mean Corpuscular Hgb Conc. 32.7 g/dL (32.0-36.0); Mean Corpuscular Volume 87.1 fL (80.0-100.0); Monocytes # (auto) 0.9 10 ^3/uL (0-1.3); Monocytes % (auto) 8.6 % (0.0-12.0); Neutrophils # (auto) 7.5 10 ^3/uL (1.6-8.6); Neutrophils % (auto) 72.9 % (37.0-80.0); Nucleated Red Blood Cells % 0.2 %; Platelet Count (auto) 272 10^3/uL (140-450); Red Blood Cells 5.07 10^6/uL (4.5-5.90); Red Cell Distribution Width 14.1 % (11.8-14.3); White Blood Cell 10.2 10^3/uL (4.4-10.8)
[2024-08-09 15:41] LABS: Urine Bacteria MANY /hpf (None Seen); Urine Blood 1+ /uL (Negative); Urine Clarity Ex.Turbid (Clear); Urine Color Brown (Yellow); Urine Mucus FEW (None Seen); Urine Protein, UAD 1+ (Negative); Urine Specific Gravity 1.012 (1.001-1.035); Urine Squamous Epithelial Cell FEW /hpf (<5); Urine Urobilinogen Normal (Negative); Urine WBC 2570 /HPF (0-3); Urine WBC Clumps PRESENT /hpf (None Seen)
[2024-08-09 15:53] LABS: Protein, Urine 43.7 mg/dL (1-14)
[2024-08-09 15:54] LABS: Creatinine, Urine 86.98 mg/dL (30.0-125.0); Creatinine, Urine 87.39 mg/dL (30.0-125.0); Urine Protein/Creatinine Ratio 0.5
[2024-08-09 15:58] LABS: Alanine Aminotransferase 24 U/L (7-40); Albumin 4.2 g/dL (3.2-4.8); Alkaline Phosphatase 76 U/L (46-116); Anion Gap 10 (5-15); BUN/Creatinine Ratio 19.4 (10.0-20.0); Carbon Dioxide 28 mmol/L (20-31); Chloride 105 mmol/L (98-107); Potassium 4.5 mmol/L (3.5-5.1); Sodium 143 mmol/L (136-145); Total Protein 6.9 g/dL (5.7-8.2)
[2024-08-09 15:59] LABS: Aspartate Aminotransferase 58 U/L (13-40); Bilirubin, Total 0.9 mg/dL (0.2-1.0); Blood Urea Nitrogen 51 mg/dL (9-23); Glucose 164 mg/dL (74-106); Phosphorus 3.7 mg/dL (2.4-5.1)
== END 2024-08-09 17:00 | disposition home or self-care (01) ==
LOC: LAB 14:33
PROVIDERS: ATTEND Internal Medicine
DX: E11.22 Type 2 diabetes mellitus with diabetic chronic kidney disease (principal); N18.30 Chronic kidney disease, stage 3 unspecified; E11.21 Type 2 diabetes mellitus with diabetic nephropathy; E55.9 Vitamin D deficiency, unspecified; E21.3 Hyperparathyroidism, unspecified; M10.9 Gout, unspecified; N39.0 Urinary tract infection, site not specified; R80.9 Proteinuria, unspecified; D63.1 Anemia in chronic kidney disease
CPT/HCPCS: 36415; 80053; 81001; 82043; 82306; 82570; 83970; 84100; 84156; 85025

== ENCOUNTER → 2024-08-11 | Outpatient (CLI) | payer OTHER | END | disposition home or self-care (01) | LOC: LAB 13:35 | PROVIDERS: ATTEND Internal Medicine | DX: E11.22 Type 2 diabetes mellitus with diabetic chronic kidney disease (principal); N18.30 Chronic kidney disease, stage 3 unspecified; E11.21 Type 2 diabetes mellitus with diabetic nephropathy; E21.3 Hyperparathyroidism, unspecified; E55.9 Vitamin D deficiency, unspecified; M10.9 Gout, unspecified; N39.0 Urinary tract infection, site not specified; R80.9 Proteinuria, unspecified; D63.1 Anemia in chronic kidney disease | CPT/HCPCS: 87086 ==

== ENCOUNTER → 2024-09-07 | Outpatient (CLI) | payer OTHER ==
[2024-09-07 12:42] LABS: Hematocrit 44.9 % (41.0-53.0); Hemoglobin 14.5 g/dL (13.5-17.5); Mean Corpuscular Hemoglobin 27.9 pg (28.0-32.0); Mean Corpuscular Volume 86.2 fL (80.0-100.0); Nucleated Red Blood Cells % 0.0 %
[2024-09-07 12:57] LABS: Prostate Specific Antigen 1.09 ng/mL (0.0-4.0)
[2024-09-07 12:58] LABS: Albumin 3.8 g/dL (3.2-4.8); Alkaline Phosphatase 81 U/L (46-116); Anion Gap 12 (5-15); BUN/Creatinine Ratio 24.0 (10.0-20.0); Carbon Dioxide 27 mmol/L (20-31); Chloride 101 mmol/L (98-107); Potassium 4.5 mmol/L (3.5-5.1); Sodium 140 mmol/L (136-145); Total Protein 6.5 g/dL (5.7-8.2)
[2024-09-07 13:00] LABS: Blood Urea Nitrogen 73 mg/dL (9-23); Glucose 177 mg/dL (74-106)
[2024-09-07 13:01] LABS: Alanine Aminotransferase 43 U/L (7-40); Amylase 28 U/L (30-118); Bilirubin, Total 1.7 mg/dL (0.2-1.0); Calcium 10.9 mg/dL (8.7-10.4); Carcinoembryonic Antigen 6.07 ng/mL (<=5.0)
[2024-09-07 13:07] LABS: Urine Protein, UAD Negative (Negative); Urine WBC Clumps PRESENT /hpf (None Seen)
[2024-09-07 13:09] LABS: Lipase 52 U/L (12-53)
== END | disposition home or self-care (01) ==
LOC: LAB 12:08
PROVIDERS: ATTEND Internal Medicine
DX: N40.0 Benign prostatic hyperplasia without lower urinary tract symptoms (principal); C44.42 Squamous cell carcinoma of skin of scalp and neck; E11.9 Type 2 diabetes mellitus without complications; R91.8 Other nonspecific abnormal finding of lung field
CPT/HCPCS: 36415; 80053; 81001; 82150; 82378; 83690; 84153; 84443; 85025; 85652; 86141

== ENCOUNTER 2024-09-19 07:58 | Inpatient (IN) | payer OTHER ==
[~2024-09-19] VITALS: Ht 182.9 cm; Wt 83.0 kg
--- NOTE | 2024-09-19 08:44 | ED.PDOC ---
Altered Mental Status HPI Comments 84 y/o M, brought in by , with PMHx of DM, CKF, and HTN presents to the ED for CC of ALOC. Patient's reports, she found patient this morning (09/19/24) attempting to get into the car while in his underwear. Per patient's , patient has not taken his scheduled medications in [id number] until, yesterday (09/18/24). At this time patient c/o lower back pain which is chronic. No other symptoms or modifiers obtainable at this time. Chief Complaint: ALOC Time Seen by MD: 08:30 Primary Care Provider: RICHARD Reviewed Notes: Nurses Notes, Medications, Allergies Allergies: Coded Allergies: NO KNOWN ALLERGIES (Unverified , 07/12/23) Home Meds Active Scripts Metoprolol Succinate (Toprol Xl) 50 Mg Tab, 25 MG PO DAILY for 30 Days, #15 TAB Prov:RAMU OROZCO [facility] 05/02/24 Empagliflozin (Jardiance) 10 Mg Tab, 10 MG PO DAILY for 30 Days, #30 TAB Prov:RAMU OROZCO [facility] 05/02/24 Clopidogrel Bisulfate (CLOPIDOGREL) 75 Mg Tab, 75 MG PO DAILY for 30 Days, #30 TAB Prov:RAMU OROZCO [facility] 05/02/24 Atorvastatin Calcium (ATORVASTATIN CALCIUM) 20 Mg Tab, 80 MG PO HS for 30 Days, #120 TAB Prov:RAMU OROZCO 05/02/24 Aspirin (Aspirin Low Dose) 81 Mg Tab, 81 MG PO DAILY for 30 Days, #30 TAB Prov:RAMU OROZCO [facility] 05/02/24 Amlodipine Besylate (NORVASC TABLET) 5 Mg Tb, 5 MG PO DAILY for 30 Days, #30 TAB Prov:RAMU OROZCO 05/02/24 Acetaminophen (Acetaminophen) 325 Mg Tab, 650 MG PO Q6HP PRN for 10 Days, #80 TAB Prov:RAMU OROZCO [facility] 05/02/24 Reported Medications Glipizide (Glipizide) 5 Mg Tab, 1 TAB PO BID for 90 Days, #180 05/01/24 Insulin Glargine (Lantus Solostar) 100 Unit/Ml Inj, 20 UNIT SC BID for 37 Days, #15 05/01/24 Finasteride (Finasteride) 5 Mg Tab, 1 TAB PO DAILY for 90 Days, #90 05/01/24 Gabapentin (Gabapentin) 300 Mg Cap, 1 CAP PO TID for 90 Days, #270 05/01/24 Tamsulosin Hcl (Tamsulosin Hcl) 0.4 Mg Cap, 1 CAP PO DAILY for 90 Days, #90 05/01/24 Information Source: Patient Mode of Arrival: Wheelchair Severity: Moderate Timing: Hours Duration: Since onset Quality: Confusion Recent: None History of: Diabetes Associated Signs and Symptoms: None Past Medical History PAST MEDICAL HISTORY: CKF, DM, High Lipids, UTI'S Surgical History: PTCA Family History Family History: Reviewed,noncontributory to illness Social History Smoker: Non-Smoker Alcohol: Denies ETOH Use Drugs: Denies Drug Use Lives In: Home Unable to Obtain due to: Altered Mental Status All Other Systems: Reviewed and Negative Physical Exam General Appearance: No Apparent Distress, Normal HEENT: Normal ENT Inspection, Pharynx Normal Neck: Full Range of Motion, Non-Tender, Normal, Normal Inspection Respiratory: Chest Non-Tender, Lungs Clear, No Accessory Muscle Use, No R espiratory Distress, Normal Breath Sounds Cardiovascular: No Edema, No Murmur, No Gallop, Normal Peripheral Pulses, Regular Rate/Rhythm Breast Exam: Deferred Gastrointestinal: No Organomegaly, Non Tender, No Pulsatile Mass, Normal Bowel Sounds, Soft Genitalia: Deferred Pelvic: Deferred Rectal: Deferred Extremities: No calf tenderness, Normal capillary refill, Normal inspection, Normal range of motion, Non-tender, No pedal edema Musculoskeletal : Apperance: Normal 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 Was a procedure done?: No Differential Diagnosis (ALOC) Differential Diagnosis: Dehydration, Hypoglycemia, DKA X-Ray, Labs, Meds, VS Vital Signs Date Time Temp Pulse Resp B/P (MAP) Pulse Ox O2 Delivery O2 Flow Rate FiO2 09/19/24 11:14 77 09/19/24 09:16 78 09/19/24 08:19 83 09/19/24 08:12 98.5 86 18 94/56 (69) 94 98.5 Lab Test 09/19/24 10:39 09/19/24 09:41 09/19/24 08:32 09/19/24 08:08 Range/Units Lactic Acid Level Pending 3.4 *H 0.4-2.0 mmol/L Troponin I High Sensitivity 9 11 </=54 ng/L White Blood Count 20.7 H 4.4-10.8 10^3/uL Red Blood Count 5.34 4.5-5.90 10^6/uL Hemoglobin 15.0 13.5-17.5 g/dL Hematocrit 46.4 41.0-53.0 % Mean Corpuscular Volume 86.8 80.0-100.0 fL Mean Corpuscular Hemoglobin 28.0 28.0-32.0 pg Mean Corpuscular Hemoglobin Concent 32.3 32.0-36.0 g/dL Red Cell Distribution Width 14.8 H 11.8-14.3 % Platelet Count 305 140-450 10^3/uL Mean Platelet Volume 9.4 6.9-10.8 fL Neutrophils (%) (Auto) 84.7 H 37.0-80.0 % Lymphocytes (%) (Auto) 6.8 L 10.0-50.0 % Monocytes (%) (Auto) 8.0 0.0-12.0 % Eosinophils (%) (Auto) 0.1 0.0-7.0 % Basophils (%) (Auto) 0.4 0.0-2.0 % Neutrophils # (Auto) 17.5 H 1.6-8.6 10 ^3/uL Lymphocytes # (Auto) 1.4 0.4-5.4 10 ^3/uL Monocytes # (Auto) 1.7 H 0-1.3 10 ^3/uL Eosinophils # (Auto) 0 0-0.8 10 ^3/uL Basophils # (Auto) 0.1 0-0.2 10 ^3/uL Nucleated Red Blood Cells 0.0 % Sodium Level 136 136-145 mmol/L Potassium Level 5.1 3.5-5.1 mmol/L Chloride Level 101 98-107 mmol/L Carbon Dioxide Level 25 20-31 mmol/L Anion Gap 10 5-15 Blood Urea Nitrogen 65 H 9-23 mg/dL Creatinine 2.79 H 0.700-1.30 mg/dL Glomerular Filtration Rate Calc 21 >90 mL/min BUN/Creatinine Ratio 23.3 H 10.0-20.0 Serum Glucose 301 H 74-106 mg/dL Calcium Level 12.3 H 8.7-10.4 mg/dL Total Bilirubin 1.6 H 0.2-1.0 mg/dL Aspartate Amino Transferase (AST) 133 H 13-40 U/L Alanine Aminotransferase (ALT) 35 7-40 U/L Alkaline Phosphatase 110 46-116 U/L B-Type Natriuretic Peptide 154.06 0-100 pg/mL Total Protein 6.6 5.7-8.2 g/dL Albumin 3.7 3.2-4.8 g/dL POC Glucose 280 H 70-106 mg/dl Current Medications Medications (Trade) Dose Ordered Sig/Lavell Route Start Time Stop Time Status Last Admin Sodium Chloride 1,000 ml @ 1,000 mls/hr Q1H ONCE IV 09/19/24 08:30 09/19/24 09:29 DC 09/19/24 09:58 [place] [id number] Ph: [phone] DIAGNOSTIC IMAGING Diagnostic Imaging Report : [id number] Signed PATIENT: EDI WALSHACCT: [id number] UNIT: [id number] : 1940 LOC: ER ROOM / BED: / AGE / SEX: 84 / M ADM STATUS: REG ER SERVICE 8 ORDERING PHYSICIAN: HAY GARCIA MD PROCEDURE(s): CXRP - CHEST PORTABLE REASON: [facility] ORDER NUMBER(s): [id number], ACCESSION NUMBER(s): [id number] XY CHEST PORTABLE, HISTORY: ams COMPARISON: XY CHEST PORTABLE on DOS: 04/29/24 XY CHEST PORTABLE on DOS: 04/29/24 TECHNICAL DATA: 1 view of the chest was obtained. FINDINGS: Lines and tubes: None Cardiomediastinal silhouette: normal Pulmonary vasculature: normal Lung expansion: normal Lung airspace: normal Lung interstitium: normal Pleura: normal Pneumothorax: no Bones: Unremarkable Other: no IMPRESSION: No acute intrathoracic abnormality. ATED BY: DALJIT VERNON MD DICTATED DATE/TIME: 09/19/24855 SIGNED BY: DALJIT VERNON MD SIGNED DATE/TIME: 09/19/24855 CC: [place] [address] Ph: [phone] DIAGNOSTIC IMAGING Diagnostic Imaging Report : [id number] Signed PATIENT: EDI WALSHACCT: [id number] UNIT: [id number] : 1940 LOC: ER ROOM / BED: / AGE / SEX: 84 / M ADM STATUS: REG ER SERVICE 8 ORDERING PHYSICIAN: HAY GARCIA MD PROCEDURE(s): HWOCT - HEAD WITHOUT CONTRAST REASON: ams ORDER NUMBER(s): [id number], ACCESSION NUMBER(s): [id number] EXAM: CT HEAD WITHOUT CONTRAST INDICATION: ams TECHNIQUE: CT of the head without intravenous contrast. Coronal and sagittal reformatted images are submitted. Radiation Dose : 1. Head: CT Dose: CTDI volume is 54.0 mGy. Dose-length product is 1063.3 mGy*cm The dose indicators for CT are the volume Computed Tomography (CT) Dose Index (CTDIvol) and the Dose Length Product (DLP), and are measured in units of mGy an d mGy-cm, respectively. These indicators are not patient dose, but values generated from the CT scanner acquisition factors. The report includes radiation exposure data for exposures received during this examination. All CT scans at this medical facility are performed using dose modulation techniques as appropriate to a performed exam including the following: Automated exposure co ntrol was utilized; adjustment of the MA and/or KV according to patient size; and use of iterative reconstruction technique. COMPARISON: None FINDINGS: There is no evidence of acute intracranial hemorrhage, extra-axial collection, mass effect, midline shift, herniation or hydrocephalus. Old right frontal lobe infarct. The ventricles, sulci and cisterns are age appropriate. The alvarez-white differentiation is intact. Mucosal thickening in the maxillary sinus. Mastoid air cells are clear. No depressed calvarial fracture. The surrounding soft tissues are unremarkable. IMPRESSION: 1. No acute intracranial abnormality. ATED BY: DEE DEE TIM MD DICTATED DATE/TIME: 09/19/24856 SIGNED BY: DEE DEE TIM MD SIGNED DATE/TIME: 09/19/24 0857 CC: Time of 1ST Reevaluation: 09:00 Reevaluation 1ST: Unchanged Patient Education/Counseling: Other (pt confused) Family Education/Counseling: Diagnosis, Treatment SEPSIS Sepsis Screen Date sepsis recognized/suspect: Sep 19, 2024 Time Sepsis recognized/suspect: 811 Recent Procedure: No On Antibiotic Therapy: No Respiratory Rate >20: No Heart Rate >90: No Temp<36 C (96.8 F) or >38.3 C: No SBP <90 or MAP <65 mmHG: Yes New Acute Mental Status Change: No Is the patient on CPAP, BIPAP,: No Physician Orders Urinalysis (09/19/24 08:19) Chest Portable (09/19/24 08:19) Blood Culture (09/19/24 08:19) Head Without Contrast (09/19/24 08:19) Troponin-I Hs (09/19/24 11:19) Electrocardigram (09/19/24 11:19) Sodium Chloride 0.9% (09/19/24 11:30) Cefepime 2gm/50ml Ns (Maxipime 2gm/50ml) (09/19/24 11:30) Vancomycin 1gm/200ml Pm (09/19/24 11:30) Vital Signs Date Time Temp Pulse Resp B/P (MAP) Pulse Ox O2 Delivery O2 Flow Rate FiO2 09/19/24 11:14 77 09/19/24 09:16 78 09/19/24 08:19 83 09/19/24 08:12 98.5 86 18 94/56 (69) 94 98.5 Laboratory Tests Test 09/19/24 08:32 09/19/24 10:39 Lactic Acid Level 3.4 mmol/L (0.4-2.0) *H Pending White Blood Count 20.7 10^3/uL (4.4-10.8) H Medications Medications Dose Ordered Sig/Lavell Route Start Time Stop Time Status Last Admin Dose Admin Sodium Chloride 1,000 ml @ 1,000 mls/hr Q1H ONCE IV 09/19/24 08:30 09/19/24 09:29 DC 09/19/24 09:58 Departure 1 Departure Time of Disposition: 11:29 (Patient with a worsening altered mental status concern for sepsis. We will empirically cover patient with fluids and ant ibiotics and admit patient for further workup and expert consultation) Impression: Primary Impression: Acute metabolic encephalopathy Additional Impression: Generalized weakness Disposition: ADMITTED INPATIENT Admit to: Med Surg Condition: Serious Critical Care Note Critical Care Time?: Yes Critical care comment: Altered mental status Authorized and Performed by: Hay Garcia MD Total critical care time: Approximately 56 minutes Due to a high probability of clinically significant, life threatening deterioration, the patient required my highest level of preparedness to intervene emergently and I personally spent this critical care time directly and personally managing the patient. This critical care time included obtaining a history; examining the patient; pulse oximetry; ordering and review of studies; arranging urgent treatment with development of a management plan; evaluation of patient's response to treatment; frequent reassessment; and, discussions with other providers. This critical care time was performed to assess and manage the high probability of imminent, life-threatening deterioration that could result in multi-organ failure. It was exclusive of separately billable procedures and treating other patients and teaching time. Please see my other sections and the rest of the note for further information on patient assessment and treatment. Stability Stability form required: No Heart Score Heart Score: Heart Score Response (Comments) Value History N/A 0 EKG N/A 0 Age N/A 0 Risk Factors N/A 0 Troponin N/A 0 Total 0 I personally scribed for HAY GARCIA MD ([email or web address]) on 09/19/24 at 08:44. Electronically submitted by Annamaria Angulo ([email or web address]). I personally scribed for HAY GARCIA MD ([email or web address]) on 09/19/24 at 09:25. Electronically submitted by Annamaria Angulo ([email or web address]). I personally scribed for HAY GARCIA MD ([email or web address]) on 09/19/24 at 09:26. Electronically submitted by Annamaria Angulo ([email or web address]). HAY GARCIA MD Sep 19, 2024 08:44
[2024-09-19 08:48] LABS: Hematocrit 46.4 % (41.0-53.0); Hemoglobin 15.0 g/dL (13.5-17.5); Mean Corpuscular Hemoglobin 28.0 pg (28.0-32.0); Mean Corpuscular Volume 86.8 fL (80.0-100.0); Nucleated Red Blood Cells % 0.0 %
--- NOTE | 2024-09-19 08:59 | DVH ---
EXAM: CT HEAD WITHOUT CONTRAST INDICATION: ams TECHNIQUE: CT of the head without intravenous contrast. Coronal and sagittal reformatted images are s ubmitted. Radiation Dose : 1. Head: CT Dose: CTDI volume is 54.0 mGy. Dose-length product is 1063.3 mGy*cm The dose indicators for CT are the volume Computed Tomography (CT) Dose Index (CTDIvol) and the Dose Length Product (DLP), and are measured in units of mGy and mGy-cm, respectively. These indicators are not patient dose, but values generated from the CT scanner acquisition factors. The report includes radiation exposure data for exposures received during this examination. All CT scans at this medical facility are performed using dose modulation techniques as appropriate to a performed exam including the following: Automated exposure control was utilized; adjustment of the MA and/or KV according to patient size; and use of iterative reconstruction technique. COMPARISON: None FINDINGS: There is no evidence of acute intracranial hemorrhage, extra-axial collection, mass effect, midline s hift, herniation or hydrocephalus. Old right frontal lobe infarct. The ventricles, sulci and cisterns are age appropriate. The alvarez-white differentiation is intact. Mucosal thickening in the maxillary sinus. Mastoid air cells are clear. No depressed calvarial fracture. The surrounding soft tissues are unremarkable. IMPRESSION: 1. No acute intracranial abnormality.
--- NOTE | 2024-09-19 08:59 | DVH ---
XY CHEST PORTABLE, HISTORY: ams COMPARISON: XY CHEST PORTABLE on DOS: 04/29/24 XY CHEST PORTABLE on DOS: 04/29/24 TECHNICAL DATA: 1 view of the chest was obtained. FINDINGS: Lines and tubes: None Cardiomediastinal silhouette: normal Pulmonary vasculature: normal Lung expansion: normal Lung airspace: normal Lung interstitium: normal Pleura: normal Pneumothorax: no Bones: Unremarkable Other: no IMPRESSION: No acute intrathoracic abnormality.
[2024-09-19 09:01] LABS: Alanine Aminotransferase 35 U/L (7-40); Albumin 3.7 g/dL (3.2-4.8); Alkaline Phosphatase 110 U/L (46-116); Anion Gap 10 (5-15); BUN/Creatinine Ratio 23.3 (10.0-20.0); Carbon Dioxide 25 mmol/L (20-31); Chloride 101 mmol/L (98-107); Potassium 5.1 mmol/L (3.5-5.1); Sodium 136 mmol/L (136-145); Total Protein 6.6 g/dL (5.7-8.2)
[2024-09-19 09:04] LABS: Bilirubin, Total 1.6 mg/dL (0.2-1.0); Blood Urea Nitrogen 65 mg/dL (9-23); Calcium 12.3 mg/dL (8.7-10.4); Glucose 301 mg/dL (74-106)
[2024-09-19 09:06] LABS: Lactic Acid w/Reflex 3.4 mmol/L (0.4-2.0)
--- NOTE | 2024-09-19 09:17 | ECG ---
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
[2024-09-19] MEDS: SODIUM CHLORIDE 0.9% 1,000 ML IV ONE (09:58)
--- NOTE | 2024-09-19 11:15 | ECG ---
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
[2024-09-19] MEDS: SODIUM CHLORIDE 0.9% 2,350 ML IV ONE (12:21)
[2024-09-19] MEDS: VANCOMYCIN 1GM/200ML PM 200 ML IV ONE (12:25)
[2024-09-19] MEDS: CEFEPIME 2GM/50ML NS 50 ML IV ONE (13:35)
[2024-09-19] MEDS ORDERED: CEFEPIME 2GM/50ML NS 50 ML IV ONE (14:00)
[2024-09-19] MEDS ORDERED: CEFEPIME 2GM/50ML NS 50 ML IV SCH (14:00)
[2024-09-19] MEDS ORDERED: DEXTROSE (50%) 50ML SYRG IV PRN (14:00)
[2024-09-19] MEDS ORDERED: NITROGLYCERIN 0.4 MG SL TAB SL PRN (14:00)
[2024-09-19] MEDS ORDERED: VANCOMYCIN PER PHARMACY 0 MG IV SCH (14:00)
[2024-09-19] MEDS ORDERED: ONDANSETRON HCL 4 MG/2 ML VIAL IV PRN (14:00)
[2024-09-19] MEDS ORDERED: DOCUSATE SOD 100 MG CAP PO PRN (14:00)
[2024-09-19 14:49] LABS: Urine Protein, UAD Negative (Negative); Urine WBC Clumps PRESENT /hpf (None Seen)
[2024-09-19 15:56] VITALS: BP 125/85; PULSE 67; RESP 18; TEMP 97.6; O2SAT 97
--- NOTE | 2024-09-19 16:53 | DVH ---
PROCEDURE: MRI BRAIN HEAD WO CONTRAST Indication: ro mets COMPARISON: 09/19/2024 TECHNIQUE: Multiplanar multisequence images of the brain are obtained. FINDINGS: There is no abnormal diffusion restriction. Increased T2 signal within the right frontal lobe measuri ng 2.1 cm There is no intracranial hemorrhage. There are mild periventricular and subcortical white m atter T2 and FLAIR hyperintense changes. The ventricles are midline and normal in size. The cisterns are patent. Normal intracranial flow voids are preserved. No abnormal susceptibility signal. 1.6 cm right maxillary sinus mucosal retention cyst/ polyp. The visualized orbits are unremarkable. IMPRESSION: A region of increased T2 signal within the right frontal lobe measuring 2.1 cm. Recommend MRI brain w ith contrast to exclude underlying enhancing lesion/ metastatic lesion. No acute cerebrovascular ischemia. Mild chronic microvascular ischemic changes.
--- NOTE | 2024-09-19 17:31 | DVHHP2 ---
History of Present Illness Reason for Visit: Altered mental status History of Present Illness 84-year-old male past medical history diabetes CK F hypertension hyperlipidemia UTIs PTCA he also has some liver disease per chief complaint patient is lying in bed with had overhead but his spoken his behalf but she states t hat she knows that patient is likely quit taking his med 2-3 weeks prior to coming to the hospital but he did decided to take the doses of medication yesterday. But she was concerned because when she got up this morning she heard the alarm going off and she went to the front door to check things out and she saw her walking around with his under wears with a walker around the car trying to open the car and get into the car she noticed that he has been confused for the last few days but today her his symptoms got worse so patient was brought in for evaluation when evaluating patient's labs and imaging vanco was given cefepime normal saline was provided white count was found to be 20.7 lactate was 3.9 troponin x3 was negative creatinine was 2.29 and 68 glucose was 301 calcium was 12.3 with a corrected calcium of 10.4 total bili was 1.6 AST was [address] scan of the brain was unremarkable chest x-ray was unremarkable patient's states patient currently is being treated for UTI he has been on antibiotics for last four days she is unsure of the name of the antibiotic. With these findings we will admit for acute sepsis workup Past Medical History See HPI above Past Surgical History See HPI above Family History Reviewed, non-contributory to the management of this case. Past Social History The patient lives at home, denies smoking, alcohol or illicit drugs abuse. Review of Systems Constitutional: No: Fever, Chills, Sweats, Weakness, Malaise, Other Eyes: No: Pain, Vision change, Conjunctivae inflammation, Eyelid inflammation, Other, Redness ENT: No: Ear pain, Ear discharge, Nose pain, Nose discharge, Nose congestion, Mouth pain, Mouth swelling, Throat pain, Throat swelling, Other Respiratory: No: Cough, Dry, Shortness of breath, SOB with excertion, Wheezing, Hemoptysis, Pleuritic Pain, Sputum, Wheezing, Other Cardiovascular: No: Chest Pain, Palpitations, Orthopnea, Paroxysmal Noc. Dyspnea, Edema, Lt Headedness, Other Gastrointestinal: No: Nausea, Vomiting, Abdominal Pain, Diarrhea, Constipation, Melena, Hematochezia, Other Genitourinary: Dysuria; No Frequency, No Incontinence, No Hematuria, No Retention, No Other Musculoskeletal: No: other, neck pain, shoulder pain, arm pain, back pain, hand pain, leg pain, foot pain Skin: No: Rash, Lesions, Jaundice, Bruising, Other Neurological: Weakness, Confusion; No: Numbness, Incoordination, Change in speech, Seizures, Other Allergies: Coded Allergies: NO KNOWN ALLERGIES (Unverified , 07/12/23) Medications Current Medications Medications Dose Ordered Sig/Lavell Route Start Time Stop Time Status Last Admin Dose Admin Diagnostic Test (Pha) 1 strip Q6HR 09/19/24 18:00 Insulin Human Regular Q6HR SC 09/19/24 18:00 Dextrose 50 ml UD PRN IV 09/19/24 14:00 Sodium Chloride 1,000 ml @ 100 mls/hr Q10H IV 09/19/24 14:00 Ondansetron HCl 4 mg Q4HP PRN IV 09/19/24 14:00 Docusate Sodium 100 mg BIDPRN PRN PO 09/19/24 14:00 Enoxaparin Sodium 40 mg DAILY SC 09/20/24 10:00 Nitroglycerin 0.4 mg Q5MINP PRN SL 09/19/24 14:00 Vancomycin HCl 0 ml @ 0 mls/hr UD IV 09/19/24 14:00 Cefepime HCl 50 ml @ 12.5 mls/hr Q8HR IV 09/19/24 14:00 UNV Cefepime HCl 50 ml @ 12.5 mls/hr DAILY IV 09/20/24 10:00 Exam Vital Signs Vital Signs Date Time Temp Pulse Resp B/P (MAP) Pulse Ox O2 Delivery O2 Flow Rate FiO2 09/19/24 15:56 Room Air* 0 21 09/19/24 14:00 97.5 78 19 120/39 (66) 92 97.5 General Appearance: Alert, Cooperative, No acute distress, Other (Able to answer some questions but do not remember his event) HEENT: Atraumatic, PERRLA, EOMI, Mucous membr. moist/pink Respiratory: Clear to auscultation, Normal air movement Cardiovascular: Regular rate, Normal S1, Normal S2, No murmurs Abdominal: Normal bowel sounds, Soft, No tenderness, No hepatospenomegaly, No masses Extremities: No clubbing, No cyanosis, No edema, Normal pulses, No tenderness/swelling Skin: No rashes, No breakdown, No significant lesion Neuro: Other (Neuro nonfocal) Psych/Mental Status: Mental status NL, Mood NL Labs/Xrays CT scan of the brain unremarkable Chest x-ray unremarkable I reviewed labs, imaging CT scan abdomen pelvis, EKG and all diagnostic studies on this patient from ED records and the medical chart Labs Test 09/19/24 14:43 09/19/24 14:33 09/19/24 11:40 09/19/24 08:32 Range/Units Lactic Acid Level 2.0 0.4-2.0 mmol/L Ammonia < 10 L 11-32 umol/L Urine Color Yellow Yellow Urine Clarity Turbid H Clear Urine pH 5.0 5.0-9.0 Urine Specific [place] 1.014 1.001-1.035 Urine Protein Negative Negative Urine Ketones Negative Negative Urine Blood Trace H Negative /uL Urine Nitrite Negative Negative Urine Bilirubin Negative Negative Urine Urobilinogen Normal Negative mg/dL Urine Leukocyte Esterase 3+ Negative /uL Urine RBC 5 0 - 3 /hpf Urine WBC Clumps Present None Seen /hpf Urine Microscopic WBC 161 H 0-3 /HPF Urine Squamous Epithelial Cells Few <5 /hpf Urine Bacteria Many H None Seen /hpf Urine Hyaline Casts Few 0 - 2 /lpf Urine Mucus Few None Seen Urine Glucose 2+ H Normal mg/dL Troponin I High Sensitivity 9 </=54 ng/L White Blood Count 20.7 H 4.4-10.8 10^3/uL Red Blood Count 5.34 4.5-5.90 10^6/uL Hemoglobin 15.0 13.5-17.5 g/dL Hematocrit 46.4 41.0-53.0 % Mean Corpuscular Volume 86.8 80.0-100.0 fL Mean Corpuscular Hemoglobin 28.0 28.0-32.0 pg Mean Corpuscular Hemoglobin Concent 32.3 32.0-36.0 g/dL Red Cell Distribution Width 14.8 H 11.8-14.3 % Platelet Count 305 140-450 10^3/uL Mean Platelet Volume 9.4 6.9-10.8 fL Neutrophils (%) (Auto) 84.7 H 37.0-80.0 % Lymphocytes (%) (Auto) 6.8 L 10.0-50.0 % Monocytes (%) (Auto) 8.0 0.0-12.0 % Eosinophils (%) (Auto) 0.1 0.0-7.0 % Basophils (%) (Auto) 0.4 0.0-2.0 % Neutrophils # (Auto) 17.5 H 1.6-8.6 10 ^3/uL Lymphocytes # (Auto) 1.4 0.4-5.4 10 ^3/uL Monocytes # (Auto) 1.7 H 0-1.3 10 ^3/uL Eosinophils # (Auto) 0 0-0.8 10 ^3/uL Basophils # (Auto) 0.1 0-0.2 10 ^3/uL Nucleated Red Blood Cells 0.0 % Sodium Level 136 136-145 mmol/L Potassium Level 5.1 3.5-5.1 mmol/L Chloride Level 101 98-107 mmol/L Carbon Dioxide Level 25 20-31 mmol/L Anion Gap 10 5-15 Blood Urea Nitrogen 65 H 9-23 mg/dL Creatinine 2.79 H 0.700-1.30 mg/dL Glomerular Filtration Rate Calc 21 >90 mL/min BUN/Creatinine Ratio 23.3 H 10.0-20.0 Serum Glucose 301 H 74-106 mg/dL Calcium Level 12.3 H 8.7-10.4 mg/dL Total Bilirubin 1.6 H 0.2-1.0 mg/dL Aspartate Amino Transferase (AST) 133 H 13-40 U/L Alanine Aminotransferase (ALT) 35 7-40 U/L Alkaline Phosphatase 110 46-116 U/L B-Type Natriuretic Peptide 154.06 0-100 pg/mL Total Protein 6.6 5.7-8.2 g/dL Albumin 3.7 3.2-4.8 g/dL Test 09/19/24 08:08 Range/Units POC Glucose 280 H 70-106 mg/dl SEPSIS Sepsis Screen Date sepsis recognized/suspect: Sep 19, 2024 Time Sepsis recognized/suspect: 844 Recent Procedure: No On Antibiotic Therapy: No Respiratory Rate >20: No Heart Rate >90: No Temp<36 C (96.8 F) or >38.3 C: No SBP <90 or MAP <65 mmHG: No New Acute Mental Status Change: No Is the patient on CPAP, BIPAP,: No Physician Orders Brain Head Wo Contrast (09/19/24 12:46) * Linen Folder Consult (09/19/24 ) Glucose Blood (Accu-Chek Comfort Curve T (09/19/24 18:00) Insulin R (Human) (Insulin R) (09/19/24 18:00) Dextrose 50% Syringe (09/19/24 14:00) Admit (09/19/24 13:53) Allergies (09/19/24 13:53) Code Status (09/19/24 13:53) Sodium Chloride 0.9% (09/19/24 14:00) Ondansetron Hcl (Zofran) (09/19/24 14:00) Docusate Sodium Capsule (Colace Capsule) (09/19/24 14:00) Enoxaparin Sodium (Lovenox) (09/20/24 10:00) Fall Risk Precautions In Place QSHIFT (09/19/24 13:53) Complete Blood Count (09/20/24 04:00) Comprehensive Metabolic Panel (09/20/24 04:00) Npo (Nothing By Mouth) Diet (09/19/24 Dinner) Condition: Fair (09/19/24 13:53) Maintain Bed Rest (09/19/24 13:53) Sequential Compression Device (09/19/24 ) Nitroglycerin Sublingual (Ntrostat Subli (09/19/24 14:00) Stat Ekg For Chest Pain (09/19/24 13:53) Notify Md Of Changes From Base (09/19/24 13:53) Regulatory Compliance Engineer For 24 Hours (09/19/24 13:53) Emergency Dysrhythmia Protocol (09/19/24 13:53) Rhythm Strips Once Every Shift (09/19/24 13:53) Oxygen By Nasal Cannula (09/19/24 13:53) Vancomycin Per Pharmacy (09/19/24 14:00) Blood Culture (09/19/24 13:53) Cefepime 1gm/ 50ml (Maxipime 1gm/50ml) (09/20/24 10:00) Vancomycin,Random (09/20/24 04:00) Urine Bacterial Culture (09/19/24 15:13) Nm Bone 3 Phase (09/19/24 16:48) Erythrocyte Sedimentation Rate (09/19/24 16:50) Vital Signs Date Time Temp Pulse Resp B/P (MAP) Pulse Ox O2 Delivery O2 Flow Rate FiO2 09/19/24 15:56 Room Air* 0 21 09/19/24 14:00 97.5 78 19 120/39 (66) 92 97.5 09/19/24 12:00 68 19 101/48 (65) 95 09/19/24 11:14 77 09/19/24 09:16 78 Laboratory Tests Test 09/19/24 08:32 09/19/24 10:39 09/19/24 14:43 Lactic Acid Level 3.4 mmol/L (0.4-2.0) *H 3.9 mmol/L (0.4-2.0) *H 2.0 mmol/L (0.4-2.0) White Blood Count 20.7 10^3/uL (4.4-10.8) H Medications Medications Dose Ordered Sig/Lavell Route Start Time Stop Time Status Last Admin Dose Admin Cefepime HCl 50 ml @ 12.5 mls/hr ONCE ONCE IV 09/19/24 11:30 09/19/24 15:29 DC 09/19/24 13:35 12.5 MLS/HR Sodium Chloride 1,000 ml @ 1,000 mls/hr Q1H ONCE IV 09/19/24 08:30 09/19/24 09:29 DC 09/19/24 09:58 1,000 MLS/HR Sodium Chloride 2,350 ml @ 2,350 mls/hr ONCE ONCE IV 09/19/24 11:30 09/19/24 12:29 DC 09/19/24 12:21 2,350 MLS/HR Vancomycin HCl 200 ml @ 200 mls/hr ONCE ONCE IV 09/19/24 11:30 09/19/24 12:29 DC 09/19/24 12:25 200 MLS/HR Assessment/Plan Assessment/Plan Acute sepsis source likely can be urine since patient is recently being treated for UTI Ua + for infection Chest x-ray unremarkable CT scan of the brain unremarkable Order blood cultures follow up results Order vancomycin and cefepime for now Order IV hydration for now Acute encephalopathy CT scan of the brain unremarkable Order ammonia level, TSH, UA Fall precautions Continue antibiotic treatments for now Acute leukocytosis source likely urine Continue vancomycin and cefepime for now Acute lactic acidosis repeat lactic ordered ivf for now cont antibiotics vanco and cefepime Acute DIA Order IV fluids for now Renal consult follow up results Unsure what baseline is Uncontrolled type 2 diabetes Insulin sliding scale Acute transaminitis with elevated T bili Order abdominal ultrasound follow up results Order ammonia level fen/ppx npo until more alert ivf scd lovenox for now plan admit to tele Plan discussed with: Spouse My Orders Orders - MAHAMED RAMÍREZ DNP Procedure Category Date Status Time Glucose Blood PHA 09/19/24 In Process (Accu-Chek Comfort 18:00 Insulin R (Human) PHA 09/19/24 In Process (Insulin R) 18:00 Dextrose 50% Syringe PHA 09/19/24 In Process 14:00 Admit ADMIT 09/19/24 Transmitted 13:53 Allergies JANEL 09/19/24 In Process 13:53 Code Status CODE 09/19/24 Transmitted 13:53 Sodium Chloride 0.9% PHA 09/19/24 In Process 14:00 Ondansetron Hcl PHA 09/19/24 In Process (Zofran) 14:00 Docusate Sodium PHA 09/19/24 In Process Capsule (Colace 14:00 Enoxaparin Sodium PHA 09/20/24 In Process (Lovenox) 10:00 Fall Risk Precautions JANEL 09/19/[address] 13:53 Complete Blood Count LAB 09/20/24 Verified 04:00 Comprehensive LAB 09/20/24 Verified Metabolic Panel 04:00 Npo (Nothing By DIET 09/19/24 Transmitted Mouth) Diet Dinner Condition: Fair JANEL 09/19/24 In Process 13:53 Maintain Bed Rest JANEL 09/19/24 In Process 13:53 Sequential JANEL 09/19/24 In Process Compression Device Nitroglycerin PHA 09/19/24 In Process Sublingual (Ntrostat 14:00 Stat Ekg For Chest JANEL 09/19/24 In Process Pain 13:53 Notify Of Changes JANEL 09/19/24 In Process From Base 13:53 Regulatory Compliance Engineer For JANEL 09/19/24 In Process 24 Hours 13:53 Emergency Dysrhythmia JANEL 09/19/24 In Process Protocol 13:53 Rhythm Strips Once JANEL 09/19/24 In Process Every Shift 13:53 Oxygen By Nasal RT 09/19/24 Transmitted Cannula 13:53 Vancomycin Per PHA 09/19/24 In Process Pharmacy 14:00 Blood Culture MAKI 09/19/24 In Process 13:53 Cefepime 1gm/ 50ml PHA 09/20/24 In Process (Maxipime 1gm/50ml) 10:00 Vancomycin,Random LAB 09/20/24 Verified 04:00 Urine Bacterial MAKI 09/19/24 In Process Culture 15:13 Date of Service: Sep 19, 2024 Billing Provider: MAHAMED RAMÍREZ DNP Common Visit Codes: [id number] INP/OBS CARE (HIGH) MAHAMED RAMÍREZ DNP Sep 19, 2024 17:31
[2024-09-19] MEDS: SODIUM CHLORIDE 0.9% 1,000 ML IV SCH (17:46)
[2024-09-19] MEDS: ACCU-CHEK COMFORT CURVE STRIP VI SCH (18:01)
[2024-09-19] MEDS: InsuLIN REG 1unit/0.01ml Soln (100units/ml) SC SCH (18:01)
--- NOTE | 2024-09-19 19:13 | DVH ---
_ Procedure: US ABDOMEN COMPLETE SONOGRAM Study Date and Requested Time: 09/19/2024 06:10 PM History: eval the upper abd elevated t bili and lft, and kidney Comparison: CT abdomen and pelvis 08/23/2024 report only. Technique: Multiple high resolution alvarez-scale images obtained of the abdomen with color Doppler for evaluation of the abdominal aorta, inferior vena cava, and portal vein as indicated. Findings: Liver measures 17.5 cm in length, with multiple heterogeneous solid masses, largest measuring up to 2 .3 1.9 x 2.2 cm . No evidence of intrahepatic or extrahepatic ductal dilatation. Common bile duct me asures 0.6 cm in diameter. Nonspecific gallbladder wall thickening up to 0.9 cm. Otherwise, Gallbladder unremarkable with no ev idence of gallstones, biliary sludge, or pericholecystic fluid. Negative sonographic [place]'s sign. Pancreas is obscured by bowel gas. Spleen measures 12.4 cm in length, with multiple echogenic foci which may represent calcified granulo mas Right kidney measures 8.7 cm in length. Left kidney measures 12 cm in length. Normal renal contours, echotexture, and cortical thickness bilaterally. No evidence of hydro nephrosis bilaterally. 1.8 x 1. 5 x 1.5 cm echogenic right renal lesion . Partially visualized aorta and inferior vena cava are unremarkable. No evidence of ascites. 2.5 cm calculus is noted within the urinary bladder. Urinary bladder diverticulum is noted. Impression: Urinary bladder calculus and diverticulum are noted. Nonspecific Significant gallbladder wall thickening. No cholelithiasis or definitive ultrasound evide nce of acute cholecystitis. Suggested splenic calcified granulomas. Multiple solid hepatic lesions. 1.8 x 1.5 x 1.5 cm echogenic right renal lesion which may represent nonobstructing calculus versus re nal sinus fat versus echogenic lesion. Mild atrophy of the right kidney.
[2024-09-19 20:00] VITALS: PULSE 75; PULSE 82; RESP 17; O2SAT 97
[2024-09-19 21:00] VITALS: BP 127/73; PULSE 82; RESP 17; TEMP 97; O2SAT 96
[2024-09-20] VITALS (8 sets, daily range): BP systolic 119–145; BP diastolic 63–73; PULSE 69–87; RESP 16–19; TEMP 97.1–98.4; O2SAT 93–96
[2024-09-20 07:38] LABS: Hematocrit 41.9 % (41.0-53.0); Hemoglobin 13.6 g/dL (13.5-17.5); Mean Corpuscular Hemoglobin 28.0 pg (28.0-32.0); Mean Corpuscular Volume 86.4 fL (80.0-100.0); Nucleated Red Blood Cells % 0.1 %
[2024-09-20 07:46] LABS: Alanine Aminotransferase 28 U/L (7-40); Alkaline Phosphatase 91 U/L (46-116); Anion Gap 11 (5-15); Carbon Dioxide 24 mmol/L (20-31); Chloride 107 mmol/L (98-107); Potassium 4.6 mmol/L (3.5-5.1); Sodium 142 mmol/L (136-145)
[2024-09-20 07:47] LABS: BUN/Creatinine Ratio 25.1 (10.0-20.0); Glucose 90 mg/dL (74-106)
[2024-09-20 07:52] LABS: Albumin 3.0 g/dL (3.2-4.8); Bilirubin, Total 1.7 mg/dL (0.2-1.0); Blood Urea Nitrogen 52 mg/dL (9-23); Calcium 10.8 mg/dL (8.7-10.4); Total Protein 5.3 g/dL (5.7-8.2)
[2024-09-20] MEDS: CEFEPIME 1GM/ 50ML 50 ML IV SCH (09:00)
[2024-09-20] MEDS: ENOXAPARIN SOD 40 MG/0.4 ML SYRINGE SC SCH (09:01)
--- NOTE | 2024-09-20 09:34 | ECG ---
[facility] Test Date: 2024-09-19 Test Time: 08:19:45 Pat Name: EDI WALSH Department: ER Room: 0271T Gender: M Drag Seiner: RADHA : 1940 Requested By: HAY GARCIA Order Number: [id number] Reading MD: Charlie Villanueva Measurements Intervals [place] Rate: 83 P: -34 OR: 114 QRS: 81 QRSD: 104 T: -28 QT: 350 QTc: 412 Interpretive Statements Sinus rhythm Supraventricular bigeminy Borderline short OR interval Borderline right axis deviation Low voltage, precordial leads Nonspecific T abnormalities, anterior leads Baseline wander in lead(s) V4 Electronically Signed On 09-25-2024 22:05:04 PDT by Charlie Villanueva Please click the below link to view image of tracing.
[2024-09-20] MEDS ORDERED: CEFEPIME 1GM/ 50ML 50 ML IV SCH (10:00)
[2024-09-20] MEDS: MEROPENEM 1GM IVPB 50 ML IV SCH (14:39)
[2024-09-20] MEDS: SODIUM CHLORIDE 0.9% 1,000 ML IV SCH (14:42)
--- NOTE | 2024-09-20 15:24 | DVHPN2 ---
Subjective Patient denies any symptoms at this time. Reviewed: Care Plan, H&P, Labs, Medications Changes from previous H/P or p: No Changes General: Per HPI Eyes: No Pain, No Vision change, No Conjunctivae inflammation, No Eyelid inflammation, No Other, No Redness ENT: No Ear pain, No Ear discharge, No Nose pain, No Nose discharge, No Nose congestion, No Mouth pain, No Mouth swelling, No Throat pain, No Throat swelling, No Other Cardiovascular: No Chest Pain, No Palpitations, No Orthopnea, No Paroxysmal Noc. Dyspnea, No Edema, No Lt Headedness, No Other Respiratory: No Cough, No Dry, No Shortness of breath, No SOB with excertion, No Wheezing, No Hemoptysis, No Pleuritic Pain, No Sputum, No Other Gastrointestinal: No Nausea, No Vomiting, No Abdominal Pain, No Diarrhea, No Constipation, No Melena, No Hematochezia, No Other Genitourinary: Dysuria; No Frequency, No Incontinence, No Hematuria, No Retention, No Other Musculoskeletal: No other, No neck pain, No shoulder pain, No arm pain, No back pain, No hand pain, No leg pain, No foot pain Skin: No Rash, No Lesions, No Jaundice, No Bruising, No Other Objective Vitals Vital Signs Date Time Temp Pulse Resp B/P (MAP) Pulse Ox O2 Delivery O2 Flow Rate FiO2 09/20/24 13:00 97.4 83 18 145/63 (90) 93 97.4 09/20/24 07:40 Room Air* 0 21 Intake/Output Intake and Output 09/20/24 07:00 Intake Total 3575.0 ml Output Total 200 ml Balance 3375.0 ml Intake Oral 0 ml IV Total 3575.0 ml Output Urine Total 200 ml # Voids 4 General Appearance: Alert, Oriented X3, Cooperative, No acute distress HEENT: Atraumatic, PERRLA Lungs: Clear to auscultation, Normal air movement Cardiovascular: Normal S1, Normal S2 Skin: Dry, Intact Psych/Mental Status: Mental status NL, Mood NL Medications Current Medications Medications Dose Ordered Sig/Lavell Route Start Time Stop Time Status Last Admin Dose Admin Diagnostic Test (Pha) 1 strip Q6HR 09/19/24 18:00 09/20/24 12:00 1 STRIP Insulin Human Regular Q6HR SC 09/19/24 18:00 09/20/24 00:14 3 UNITS Dextrose 50 ml UD PRN IV 09/19/24 14:00 Ondansetron HCl 4 mg Q4HP PRN IV 09/19/24 14:00 Docusate Sodium 100 mg BIDPRN PRN PO 09/19/24 14:00 Enoxaparin Sodium 40 mg DAILY SC 09/20/24 10:00 09/20/24 09:01 40 MG Nitroglycerin 0.4 mg Q5MINP PRN SL 09/19/24 14:00 Cefepime HCl 50 ml @ 12.5 mls/hr Q8HR IV 09/19/24 14:00 UNV Meropenem 50 ml @ 50 mls/hr Q12HR IV 09/20/24 14:05 09/20/24 14:39 50 MLS/HR Sodium Chloride 1,000 ml @ 60 mls/hr [id number] IV 09/20/24 13:45 09/20/24 14:42 60 MLS/HR Laboratory Results Laboratory Tests 09/20/24 05:03 09/20/24 05:07 Chemistry Test 09/20/24 05:07 Albumin 3.0 g/dL (3.2-4.8) L Calcium Level 10.8 mg/dL (8.7-10.4) H Total Protein 5.3 g/dL (5.7-8.2) L LFT Test 09/20/24 05:07 Alanine Aminotransferase (ALT) 28 U/L (7-40) Alkaline Phosphatase 91 U/L (46-116) Aspartate Amino Transferase (AST) 126 U/L (13-40) H Total Bilirubin 1.7 mg/dL (0.2-1.0) H Urinalysis Test 09/19/24 14:33 Urine Color Yellow (Yellow) Urine Clarity Turbid (Clear) H Urine pH 5.0 (5.0-9.0) Urine Specific [place] 1.014 (1.001-1.035) Urine Protein Negative (Negative) Urine Ketones Negative (Negative) Urine Blood Trace /uL (Negative) H Urine Nitrite Negative (Negative) Urine Bilirubin Negative (Negative) Urine Urobilinogen Normal mg/dL (Negative) Urine Leukocyte Esterase 3+ /uL (Negative) Urine RBC 5 /hpf (0 - 3) Urine WBC Clumps Present /hpf (None Seen) Urine Microscopic WBC 161 /HPF (0-3) H Urine Squamous Epithelial Cells Few /hpf (<5) Urine Bacteria Many /hpf (None Seen) H Urine Hyaline Casts Few /lpf (0 - 2) Urine Mucus Few (None Seen) Urine Glucose 2+ mg/dL (Normal) H Microbiology Microbiology Date/Time Source Procedure Growth Status 09/19/24 14:43 Blood Blood Culture - Preliminary NO GROWTH AFTER 24 HOURS OF INCUBATION. Resulted 09/19/24 14:33 Voided Urine Urine Culture - Preliminary Resulted Labs and/or images reviewed: Labs reviewed by me, Image(s) reviewed by me Assessment/Plan Assessment/Plan Impression: -sepsis secondary to complicated cystitis -complicated cystitis with greater than [id number] gram-negative rods , history of ESBL in the urine -metabolic encephalopathy -CKD stage IIIB -bladder calculi, renal calculi -dyslipidemia -coronary artery disease with recent stent placement -acute on chronic systolic heart failure. HFrEF ejection fraction 20% Plan: -change antibiotic therapy to Meropenem given history of ESBL -urine and blood culture -bone scan -MRI of the brain reviewed -restart dual antiplatelet therapy with Plavix and aspirin -continue atorvastatin -hold Jardiance given recurrent UTI -continue IV diuresis -repeat labs in a.m. -CT scan of abdomen and pelvis tomorrow. We will consult Urology if noted obstructive uropathy. Patient also should be evaluated for recurrent UTIs and probable nephrolithiasis as etiology Total time spent with patient discussing and formulating plan of care: 35 minutes. This medical document was created using an electronic medical record system with [employer] dictation system. Although this document has been carefully reviewed, there may still be some phonetic and typographical errors. These areas are purely typographical due to imperfections of the software programs, and do not reflect any compromise in the patient's medical care. Plan discussed with: Patient, Other (RN) My Orders Orders - AUBREE DEL CID BAGGAGE AGENT SUPERVISOR Procedure Category Date Status Time Cardiac DIET 09/20/24 Transmitted Diet-2gna,Lofat,Lochol Lunch Sodium Chloride 0.9% PHA 09/20/24 In Process 13:45 Meropenem 1gm Ivpb PHA 09/20/24 In Process (Merrem 1gm/ Ns) 14:05 Aspirin Enteric PHA 09/21/24 Verified Coated Tablet 10:00 Date of Service: Sep 20, 2024 Billing Provider: AUBREE DEL CID NP Common Visit Codes: [id number] INP/OBS CARE(HIGH) AUBREE DEL CID NP Sep 20, 2024 15:24
--- NOTE | 2024-09-20 15:56 | DVH ---
EXAM: NM BONE WHOLE BODY History: mets Comparison Study: None TECHNIQUE: At approximately 3 hours following intravenous administration 25.3 mCi of Tc-99m MDP, ante rior and posterior whole body planar images were obtained. FINDINGS: Increased radiotracer uptake along the left anterior iliac bone, right mid humerus, left mid femur, p osterior aspect of right ribs 7, 8, and 10. Physiologic radiotracer distribution in bilateral kidneys and urinary bladder. Degenerative changes in the shoulders, sternum, knees, and ankles. IMPRESSION: 1. Focal radiotracer uptake along multiple ribs, right humerus, left pelvis, and left femur are suspi cious for osteoblastic metastases.
--- NOTE | 2024-09-20 17:59 | DVHINCON2 ---
Date of service: Sep 20, 2024 Referring Physician Dyllan SOUZA Reason for Consultation DIA History of Present Illness 84 year old male with past medical history ckd 3, htn, dm2, anemia , cad w/ PCI 04/2024 , hx kidney stones sent to hospital for lethargy . He is admitted with diagnosis sepsis due to UTI. Nephrology called for elevated cr Past Medical History as above Allergies: Coded Allergies: NO KNOWN ALLERGIES (Unverified , 07/12/23) Home Meds Active Scripts Metoprolol Succinate (Toprol Xl) 50 Mg Tab, 25 MG PO DAILY for 30 Days, #15 TAB Prov:[facility] 05/02/24 Empagliflozin (Jardiance) 10 Mg Tab, 10 MG PO DAILY for 30 Days, #30 TAB Prov:[facility] 05/02/24 Clopidogrel Bisulfate (CLOPIDOGREL) 75 Mg Tab, 75 MG PO DAILY for 30 Days, #30 TAB Prov:[facility] 05/02/24 Atorvastatin Calcium (ATORVASTATIN CALCIUM) 20 Mg Tab, 80 MG PO HS for 30 Days, #120 TAB Prov:[facility] 05/02/24 Aspirin (Aspirin Low Dose) 81 Mg Tab, 81 MG PO DAILY for 30 Days, #30 TAB Prov:[facility] 05/02/24 Amlodipine Besylate (NORVASC TABLET) 5 Mg Tb, 5 MG PO DAILY for 30 Days, #30 TAB Prov:[facility] 05/02/24 Acetaminophen (Acetaminophen) 325 Mg Tab, 650 MG PO Q6HP PRN for 10 Days, #80 TAB Prov:[facility] 05/02/24 Reported Medications Glipizide (Glipizide) 5 Mg Tab, 1 TAB PO BID for 90 Days, #180 05/01/24 Insulin Glargine (Lantus Solostar) 100 Unit/Ml Inj, 20 UNIT SC BID for 37 Days, #15 05/01/24 Finasteride (Finasteride) 5 Mg Tab, 1 TAB PO DAILY for 90 Days, #90 05/01/24 Gabapentin (Gabapentin) 300 Mg Cap, 1 CAP PO TID for 90 Days, #270 05/01/24 Tamsulosin Hcl (Tamsulosin Hcl) 0.4 Mg Cap, 1 CAP PO DAILY for 90 Days, #90 2/24/25 Current Medications Current Medications Medications (Trade) Dose Ordered Sig/Lavell Route PRN Reason Start Time Stop Time Status Last Admin Enoxaparin Sodium (Lovenox) 40 mg DAILY SC 09/20/24 10:00 09/20/24 09:01 Cefepime HCl 50 ml @ 16.7 mls/hr DAILY IV 09/20/24 10:00 09/19/24 15:07 DC Cefepime HCl 50 ml @ 12.5 mls/hr DAILY IV 09/20/24 10:00 09/20/24 13:32 DC 09/20/24 09:00 Meropenem 50 ml @ 50 mls/hr Q12HR IV 09/20/24 14:05 09/20/24 14:39 Sodium Chloride 1,000 ml @ 60 mls/hr [id number] IV 09/20/24 13:45 09/20/24 14:42 Aspirin (Ecotrin Enteric Coated Tablet) 81 mg DAILY PO 09/21/24 10:00 Atorvastatin Calcium (Lipitor) 80 mg HS PO 09/20/24 22:00 Clopidogrel Bisulfate (Plavix) 75 mg DAILY PO 09/21/24 10:00 Finasteride (Proscar Tablet) 5 mg DAILY PO 09/21/24 10:00 Metoprolol Succinate (Toprol Xl) 25 mg DAILY PO 09/21/24 10:00 Tamsulosin HCl (Flomax) 0.4 mg DAILY PO 09/21/24 10:00 Family History: Patient reports no known family medical history. H&P Exam Vital Signs/I&O Vital Sign Date Time Temp Pulse Resp B/P (MAP) Pulse Ox O2 Delivery O2 Flow Rate FiO2 09/20/24 13:00 97.4 83 18 145/63 (90) 93 97.4 09/20/24 07:40 Room Air* 0 21 Intake and Output 09/19/24 09/20/24 19:00 07:00 Intake Total 3575.0 ml 0 ml Output Total 200 ml Balance 3375.0 ml 0 ml Intake Oral 0 ml 0 ml IV Total 3575.0 ml Output Urine Total 200 ml # Voids 4 Physical Exam frail elderly male nad rrr ctab/l Labs/Diagnostic Data Labs/Diagnostic Data Laboratory Tests Test 09/20/24 17:37 09/20/24 12:28 09/20/24 05:50 09/20/24 05:07 Range/Units POC Glucose 115 H 116 H 123 H 70-106 mg/dl Sodium Level 142 # 136-145 mmol/L Potassium Level 4.6 3.5-5.1 mmol/L Chloride Level 107 98-107 mmol/L Carbon Dioxide Level 24 20-31 mmol/L Anion Gap 11 5-15 Blood Urea Nitrogen 52 #H 9-23 mg/dL Creatinine 2.07 H 0.700-1.30 mg/dL Glomerular Filtration Rate Calc 31 >90 mL/min BUN/Creatinine Ratio 25.1 H 10.0-20.0 Serum Glucose 90 # 74-106 mg/dL Calcium Level 10.8 H 8.7-10.4 mg/dL Total Bilirubin 1.7 H 0.2-1.0 mg/dL Aspartate Amino Transferase (AST) 126 H 13-40 U/L Alanine Aminotransferase (ALT) 28 7-40 U/L Alkaline Phosphatase 91 46-116 U/L Total Protein 5.3 L 5.7-8.2 g/dL Albumin 3.0 L 3.2-4.8 g/dL Test 09/20/24 05:03 09/20/24 00:09 09/19/24 18:43 09/19/24 17:50 Range/Units White Blood Count 16.7 H 4.4-10.8 10^3/uL Red Blood Count 4.84 4.5-5.90 10^6/uL Hemoglobin 13.6 13.5-17.5 g/dL Hematocrit 41.9 41.0-53.0 % Mean Corpuscular Volume 86.4 80.0-100.0 fL Mean Corpuscular Hemoglobin 28.0 28.0-32.0 pg Mean Corpuscular Hemoglobin Concent 32.4 32.0-36.0 g/dL Red Cell Distribution Width 14.8 H 11.8-14.3 % Platelet Count 244 140-450 10^3/uL Mean Platelet Volume 9.2 6.9-10.8 fL Neutrophils (%) (Auto) 84.9 H 37.0-80.0 % Lymphocytes (%) (Auto) 7.1 L 10.0-50.0 % Monocytes (%) (Auto) 7.4 0.0-12.0 % Eosinophils (%) (Auto) 0.3 0.0-7.0 % Basophils (%) (Auto) 0.3 0.0-2.0 % Neutrophils # (Auto) 14.2 H 1.6-8.6 10 ^3/uL Lymphocytes # (Auto) 1.2 0.4-5.4 10 ^3/uL Monocytes # (Auto) 1.2 0-1.3 10 ^3/uL Eosinophils # (Auto) 0 0-0.8 10 ^3/uL Basophils # (Auto) 0 0-0.2 10 ^3/uL Nucleated Red Blood Cells 0.1 % Random Vancomycin Level 8.0 5-10 ug/mL POC Glucose 163 H 254 H 70-106 mg/dl Ammonia < 10 L 11-32 umol/L Test 09/19/24 14:43 09/19/24 14:33 09/19/24 11:40 09/19/24 10:39 Range/Units Lactic Acid Level 2.0 3.9 *H 0.4-2.0 mmol/L Ammonia < 10 L 11-32 umol/L Urine Color Yellow Yellow Urine Clarity Turbid H Clear Urine pH 5.0 5.0-9.0 Urine Specific [place] 1.014 1.001-1.035 Urine Protein Negative Negative Urine Ketones Negative Negative Urine Blood Trace H Negative /uL Urine Nitrite Negative Negative Urine Bilirubin Negative Negative Urine Urobilinogen Normal Negative mg/dL Urine Leukocyte Esterase 3+ Negative /uL Urine RBC 5 0 - 3 /hpf Urine WBC Clumps Present None Seen /hpf Urine Microscopic WBC 161 H 0-3 /HPF Urine Squamous Epithelial Cells Few <5 /hpf Urine Bacteria Many H None Seen /hpf Urine Hyaline Casts Few 0 - 2 /lpf Urine Mucus Few None Seen Urine Glucose 2+ H Normal mg/dL Troponin I High Sensitivity 9 </=54 ng/L Test 09/19/24 09:41 09/19/24 08:32 09/19/24 08:08 Range/Units Troponin I High Sensitivity 9 11 </=54 ng/L White Blood Count 20.7 H 4.4-10.8 10^3/uL Red Blood Count 5.34 4.5-5.90 10^6/uL Hemoglobin 15.0 13.5-17.5 g/dL Hematocrit 46.4 41.0-53.0 % Mean Corpuscular Volume 86.8 80.0-100.0 fL Mean Corpuscular Hemoglobin 28.0 28.0-32.0 pg Mean Corpuscular Hemoglobin Concent 32.3 32.0-36.0 g/dL Red Cell Distribution Width 14.8 H 11.8-14.3 % Platelet Count 305 140-450 10^3/uL Mean Platelet Volume 9.4 6.9-10.8 fL Neutrophils (%) (Auto) 84.7 H 37.0-80.0 % Lymphocytes (%) (Auto) 6.8 L 10.0-50.0 % Monocytes (%) (Auto) 8.0 0.0-12.0 % Eosinophils (%) (Auto) 0.1 0.0-7.0 % Basophils (%) (Auto) 0.4 0.0-2.0 % Neutrophils # (Auto) 17.5 H 1.6-8.6 10 ^3/uL Lymphocytes # (Auto) 1.4 0.4-5.4 10 ^3/uL Monocytes # (Auto) 1.7 H 0-1.3 10 ^3/uL Eosinophils # (Auto) 0 0-0.8 10 ^3/uL Basophils # (Auto) 0.1 0-0.2 10 ^3/uL Nucleated Red Blood Cells 0.0 % Erythrocyte Sedimentation Rate 20 0-20 mm/hr Sodium Level 136 136-145 mmol/L Potassium Level 5.1 3.5-5.1 mmol/L Chloride Level 101 98-107 mmol/L Carbon Dioxide Level 25 20-31 mmol/L Anion Gap 10 5-15 Blood Urea Nitrogen 65 H 9-23 mg/dL Creatinine 2.79 H 0.700-1.30 mg/dL Glomerular Filtration Rate Calc 21 >90 mL/min BUN/Creatinine Ratio 23.3 H 10.0-20.0 Serum Glucose 301 H 74-106 mg/dL Lactic Acid Level 3.4 *H 0.4-2.0 mmol/L Calcium Level 12.3 H 8.7-10.4 mg/dL Total Bilirubin 1.6 H 0.2-1.0 mg/dL Aspartate Amino Transferase (AST) 133 H 13-40 U/L Alanine Aminotransferase (ALT) 35 7-40 U/L Alkaline Phosphatase 110 46-116 U/L B-Type Natriuretic Peptide 154.06 0-100 pg/mL Total Protein 6.6 5.7-8.2 g/dL Albumin 3.7 3.2-4.8 g/dL Thyroid Stimulating Hormone (TSH) 1.82 0.55-4.78 uIU/mL POC Glucose 280 H 70-106 mg/dl Assessment 84 year old male with ckd 3b presented with AMS found to have sepsis due to UTI Acute kidney injury prerenal hemodynamic ckd 3b ; Dr. Krishnan [facility] sepsis due to UTI, bladder stone hepatic lesions and blastic lesions of femur concerning for metastatic CA hypercalcemia Agree with IVF hydration, renal function improved bladder stone seen on US kidney but no hydronephrosis indicated likely not obstructive Agree with ABX for urinary tract infection obtain new labs tomorrow, mg, phos obtain PTH , phos, vitamin D level defer malignancy to primary medical team Plan discussed with: Patient GUILLE DAVISON MD Sep 20, 2024 17:59
[2024-09-20] MEDS: ATORVASTATIN 20 MG TAB PO SCH (21:45)
[2024-09-21] VITALS (8 sets, daily range): BP systolic 120–155; BP diastolic 67–82; PULSE 78–97; RESP 17–18; TEMP 96.3–97.9; O2SAT 96–97
[2024-09-21 07:27] LABS: Potassium 4.2 mmol/L (3.5-5.1); Sodium 138 mmol/L (136-145)
[2024-09-21 07:28] LABS: Anion Gap 10 (5-15)
[2024-09-21 07:33] LABS: BUN/Creatinine Ratio 23.8 (10.0-20.0)
[2024-09-21 07:34] LABS: Blood Urea Nitrogen 39 mg/dL (9-23); Calcium 10.7 mg/dL (8.7-10.4); Carbon Dioxide 19 mmol/L (20-31); Chloride 109 mmol/L (98-107); Glucose 117 mg/dL (74-106)
[2024-09-21 07:36] LABS: Magnesium 1.5 mg/dL (1.6-2.6)
[2024-09-21] MEDS: TAMSULOSIN HYDROCHLORIDE 0.4 MG CAP PO SCH (09:06)
[2024-09-21] MEDS: FINASTERIDE 5 MG TAB PO SCH (09:06)
[2024-09-21] MEDS: CLOPIDOGREL BISULFATE 75 MG TAB PO SCH (09:06)
[2024-09-21] MEDS: ASPirin-EC 81 mg tab PO SCH (09:07)
[2024-09-21] MEDS: METOPROLOL SUCCINATE XL 50 MG TAB PO SCH (09:08)
--- NOTE | 2024-09-21 09:53 | DVHPN2 ---
Subjective Patient denies any symptoms at this time. Reviewed: Care Plan, H&P, Labs, Medications Changes from previous H/P or p: No Changes General: Per HPI Eyes: No Pain, No Vision change, No Conjunctivae inflammation, No Eyelid inflammation, No Other, No Redness ENT: No Ear pain, No Ear discharge, No Nose pain, No Nose discharge, No Nose congestion, No Mouth pain, No Mouth swelling, No Throat pain, No Throat swelling, No Other Cardiovascular: No Chest Pain, No Palpitations, No Orthopnea, No Paroxysmal Noc. Dyspnea, No Edema, No Lt Headedness, No Other Respiratory: No Cough, No Dry, No Shortness of breath, No SOB with excertion, No Wheezing, No Hemoptysis, No Pleuritic Pain, No Sputum, No Other Gastrointestinal: No Nausea, No Vomiting, No Abdominal Pain, No Diarrhea, No Constipation, No Melena, No Hematochezia, No Other Genitourinary: Dysuria; No Frequency, No Incontinence, No Hematuria, No Retention, No Other Musculoskeletal: No other, No neck pain, No shoulder pain, No arm pain, No back pain, No hand pain, No leg pain, No foot pain Skin: No Rash, No Lesions, No Jaundice, No Bruising, No Other Objective Vitals Vital Signs Date Time Temp Pulse Resp B/P (MAP) Pulse Ox O2 Delivery O2 Flow Rate FiO2 09/21/24 09:08 90 135/77 09/21/24 08:57 96.3 17 97 96.3 09/21/24 07:30 Room Air* 0 21 Intake/Output Intake and Output 09/21/24 07:00 Intake Total 900 ml Balance 900 ml Intake Oral 510 ml IV Total 390 ml # Voids 8 General Appearance: Alert, Cooperative, No acute distress, Other (Alert and oriented x2) HEENT: Atraumatic, PERRLA Lungs: Clear to auscultation, Normal air movement Cardiovascular: Normal S1, Normal S2 Neuro: Normal tone, Sensation intact, Cranial nerves 3-12 NL Skin: Dry, Intact Psych/Mental Status: Mental status NL, Mood NL Medications Current Medications Medications Dose Ordered Sig/Lavell Route Start Time Stop Time Status Last Admin Dose Admin Diagnostic Test (Pha) 1 strip Q6HR 09/19/24 18:00 09/21/24 05:27 1 STRIP Insulin Human Regular Q6HR SC 09/19/24 18:00 09/21/24 05:30 2 UNITS Dextrose 50 ml UD PRN IV 09/19/24 14:00 Ondansetron HCl 4 mg Q4HP PRN IV 09/19/24 14:00 Docusate Sodium 100 mg BIDPRN PRN PO 09/19/24 14:00 Enoxaparin Sodium 40 mg DAILY SC 09/20/24 10:00 09/21/24 09:09 40 MG Nitroglycerin 0.4 mg Q5MINP PRN SL 09/19/24 14:00 Cefepime HCl 50 ml @ 12.5 mls/hr Q8HR IV 09/19/24 14:00 UNV Meropenem 50 ml @ 50 mls/hr Q12HR IV 09/20/24 14:05 09/21/24 09:09 50 MLS/HR Sodium Chloride 1,000 ml @ 60 mls/hr [id number] IV 09/20/24 13:45 09/21/24 04:11 60 MLS/HR Aspirin 81 mg DAILY PO 09/21/24 10:00 09/21/24 09:07 81 MG Atorvastatin Calcium 80 mg HS PO 09/20/24 22:00 09/20/24 21:45 80 MG Clopidogrel Bisulfate 75 mg DAILY PO 09/21/24 10:00 09/21/24 09:06 75 MG Finasteride 5 mg DAILY PO 09/21/24 10:00 09/21/24 09:06 5 MG Metoprolol Succinate 25 mg DAILY PO 09/21/24 10:00 09/21/24 09:08 25 MG Tamsulosin HCl 0.4 mg DAILY PO 09/21/24 10:00 09/21/24 09:06 0.4 MG Laboratory Results Laboratory Tests 09/20/24 05:03 09/21/24 06:41 Chemistry Test 09/21/24 06:41 Calcium Level 10.7 mg/dL (8.7-10.4) H Magnesium Level 1.5 mg/dL (1.6-2.6) L Phosphorus Level 2.9 mg/dL (2.4-5.1) Urinalysis Test 09/19/24 14:33 Urine Color Yellow (Yellow) Urine Clarity Turbid (Clear) H Urine pH 5.0 (5.0-9.0) Urine Specific [place] 1.014 (1.001-1.035) Urine Protein Negative (Negative) Urine Ketones Negative (Negative) Urine Blood Trace /uL (Negative) H Urine Nitrite Negative (Negative) Urine Bilirubin Negative (Negative) Urine Urobilinogen Normal mg/dL (Negative) Urine Leukocyte Esterase 3+ /uL (Negative) Urine RBC 5 /hpf (0 - 3) Urine WBC Clumps Present /hpf (None Seen) Urine Microscopic WBC 161 /HPF (0-3) H Urine Squamous Epithelial Cells Few /hpf (<5) Urine Bacteria Many /hpf (None Seen) H Urine Hyaline Casts Few /lpf (0 - 2) Urine Mucus Few (None Seen) Urine Glucose 2+ mg/dL (Normal) H Microbiology Microbiology Date/Time Source Procedure Growth Status 09/19/24 14:43 Blood Blood Culture - Preliminary NO GROWTH AFTER 24 HOURS OF INCUBATION. Resulted 09/19/24 14:33 Voided Urine Urine Culture - Preliminary Resulted Labs and/or images reviewed: Labs reviewed by me, Image(s) reviewed by me Assessment/Plan Assessment/Plan Impression: -sepsis secondary to complicated cystitis -complicated cystitis with greater than [id number] gram-negative rods , history of ESBL in the urine -metabolic encephalopathy -CKD stage IIIB -bladder calculi, renal calculi -dyslipidemia -coronary artery disease with recent stent placement -acute on chronic systolic heart failure. HFrEF ejection fraction 20% Plan: Events: Bone scan results reviewed. Multiple areas of probable metastatic disease. Discussed the findings with the patient today, continues to be somewhat confused. Attempted to call patient's , August. Wrong number noted in chart. We will also to re-attempt to discuss case with PCP, Dr. Doe regarding further plan of care. At this time bone marrow biopsy would be recommended given no primary cancer has been identified. Previous CEA, PSA normal. -urine and blood culture -continue Meropenem -restart dual antiplatelet therapy with Plavix and aspirin -continue atorvastatin -repeat labs in a.m. Total time spent with patient discussing and formulating plan of care: 35 minutes. This medical document was created using an electronic medical record system with [employer] dictation system. Although this document has been carefully reviewed, there may still be some phonetic and typographical errors. These areas are purely typographical due to imperfections of the software programs, and do not reflect any compromise in the patient's medical care. Plan discussed with: Patient, Other (RN) My Orders Orders - AUBREE DEL CID NP Procedure Category Date Status Time Cardiac DIET 09/20/24 Transmitted Diet-2gna,Lofat,Lochol Lunch Sodium Chloride 0.9% PHA 09/20/24 In Process 13:45 Meropenem 1gm Ivpb PHA 09/20/24 In Process (Merrem 1gm/ Ns) 14:05 Aspirin Enteric PHA 09/21/24 In Process Coated Tablet 10:00 Atorvastatin (Lipitor) PHA 09/20/24 In Process 22:00 Clopidogrel Bisulfate PHA 09/21/24 In Process (Plavix) 10:00 Finasteride Tablet PHA 09/21/24 In Process (Proscar Tablet) 10:00 Metoprolol Xl PHA 09/21/24 In Process Succinate (Toprol Xl) 10:00 Tamsulosin PHA 09/21/24 In Process Hydrochloride (Flomax) 10:00 Basic Metabolic Panel LAB 09/22/24 Verified 04:00 Complete Blood Count LAB 09/22/24 Verified 04:00 Date of Service: Sep 21, 2024 Billing Provider: AUBREE DEL CID NP Common Visit Codes: [id number] INP/OBS CARE(HIGH) AUBREE DEL CID NP Sep 21, 2024 09:53
--- NOTE | 2024-09-21 14:46 | DVHPN2 ---
Progress Note Date Seen: Sep 21, 2024 Medical Necessity Reason Pt with a Central, PICC or Fol: No Subjective Review of Systems: Deferred Objective vital signs Vital Sign Date Time Temp Pulse Resp B/P (MAP) Pulse Ox O2 Delivery O2 Flow Rate FiO2 09/21/24 13:00 97.1 97 18 155/82 (106) 96 97.1 09/21/24 07:30 Room Air* 0 21 Total Intake and Output 09/20/24 09/20/24 09/21/24 15:00 23:00 07:00 Intake Total 50 ml 700 ml 150 ml Balance 50 ml 700 ml 150 ml medications Current Medications Medications Dose Ordered Sig/Lavell Route Start Time Stop Time Status Last Admin Dose Admin Diagnostic Test (Pha) 1 strip Q6HR 09/19/24 18:00 09/21/24 12:00 1 STRIP Insulin Human Regular Q6HR SC 09/19/24 18:00 09/21/24 12:46 2 UNITS Dextrose 50 ml UD PRN IV 09/19/24 14:00 Ondansetron HCl 4 mg Q4HP PRN IV 09/19/24 14:00 Docusate Sodium 100 mg BIDPRN PRN PO 09/19/24 14:00 Enoxaparin Sodium 40 mg DAILY SC 09/20/24 10:00 09/21/24 09:09 40 MG Nitroglycerin 0.4 mg Q5MINP PRN SL 09/19/24 14:00 Cefepime HCl 50 ml @ 12.5 mls/hr Q8HR IV 09/19/24 14:00 UNV Meropenem 50 ml @ 50 mls/hr Q12HR IV 09/20/24 14:05 09/21/24 09:09 50 MLS/HR Sodium Chloride 1,000 ml @ 60 mls/hr [id number] IV 09/20/24 13:45 09/21/24 04:11 60 MLS/HR Aspirin 81 mg DAILY PO 09/21/24 10:00 09/21/24 09:07 81 MG Atorvastatin Calcium 80 mg HS PO 09/20/24 22:00 09/20/24 21:45 80 MG Clopidogrel Bisulfate 75 mg DAILY PO 09/21/24 10:00 09/21/24 09:06 75 MG Finasteride 5 mg DAILY PO 09/21/24 10:00 09/21/24 09:06 5 MG Metoprolol Succinate 25 mg DAILY PO 09/21/24 10:00 09/21/24 09:08 25 MG Tamsulosin HCl 0.4 mg DAILY PO 09/21/24 10:00 09/21/24 09:06 0.4 MG Examination: GENERAL:Abnormal, CVS:Normal, NEURO:Abnormal laboratory and microbiology Laboratory Tests 09/21/24 06:41 09/20/24 05:03 Test 09/21/24 06:41 Range/Units Serum Glucose 117 H 74-106 mg/dL Microbiology Date/Time Source Procedure Growth Status 09/19/24 14:43 Blood Blood Culture - Preliminary NO GROWTH AFTER 24 HOURS OF INCUBATION. Resulted 09/19/24 14:33 Voided Urine Urine Culture - Final Escherichia coli - ESBL Complete Problem List/Assessment/Plan Problem List/Assessment/Plan 84 year old male with ckd 3b presented with AMS found to have sepsis due to UTI Acute kidney injury prerenal hemodynamic ckd 3b ; Dr. Krishnan [facility] sepsis due to UTI, bladder stone hepatic lesions and blastic lesions of femur concerning for metastatic CA hypercalcemia, non parathyroid related supports diagnosis of malignancy, PTH < 10 Agree with IVF hydration, renal function improved. can transition to po only if obtains enough po bladder stone seen on US kidney but no hydronephrosis indicated likely not obstructive Agree with ABX for urinary tract infection replace Mg defer malignancy to primary medical team Plan discussed with: Other Dietary Evaluation Review Comments: CCHO-75, Renal specific 50g Protein Diet Expected Outcomes/Goals: prevent uremia and prevent wt loss, controlled DM GUILLE DAVISON MD Sep 21, 2024 14:46
[2024-09-21] MEDS: MAGNESIUM SULFATE 1GM/100ML 100 ML IV ONE (17:07)
[2024-09-22] VITALS (9 sets, daily range): BP systolic 111–141; BP diastolic 56–81; PULSE 76–103; RESP 17–20; TEMP 97.5–98.1; O2SAT 94–98
[2024-09-22 09:32] LABS: Hematocrit 46.8 % (41.0-53.0); Hemoglobin 15.1 g/dL (13.5-17.5); Mean Corpuscular Hemoglobin 27.9 pg (28.0-32.0); Mean Corpuscular Volume 86.3 fL (80.0-100.0); Nucleated Red Blood Cells % 0.0 %
[2024-09-22 09:44] LABS: Alanine Aminotransferase 27 U/L (7-40); Alkaline Phosphatase 112 U/L (46-116); Anion Gap 9 (5-15); BUN/Creatinine Ratio 29.0 (10.0-20.0); Carbon Dioxide 23 mmol/L (20-31); Potassium 4.1 mmol/L (3.5-5.1); Sodium 139 mmol/L (136-145)
[2024-09-22 09:46] LABS: Albumin 3.2 g/dL (3.2-4.8); Bilirubin, Total 1.8 mg/dL (0.2-1.0); Blood Urea Nitrogen 45 mg/dL (9-23); Calcium 11.2 mg/dL (8.7-10.4); Chloride 107 mmol/L (98-107); Glucose 143 mg/dL (74-106); Total Protein 5.7 g/dL (5.7-8.2)
[2024-09-22] MEDS: ZOLEDRONIC ACID 4 MG in SODIUM CHL 0.9% 100 ML IV ONE (10:15)
--- NOTE | 2024-09-22 11:38 | DVHPN2 ---
Progress Note Date Seen: Sep 22, 2024 Medical Necessity Reason Pt with a Central, PICC or Fol: No Subjective Patient reports: Other Objective vital signs Vital Sign Date Time Temp Pulse Resp B/P (MAP) Pulse Ox O2 Delivery O2 Flow Rate FiO2 09/22/24 10:25 89 139/76 09/22/24 09:00 97.5 18 98 97.5 09/22/24 08:00 Room Air* 0 21 Total Intake and Output 09/21/24 09/21/24 09/22/24 15:00 23:00 07:00 Intake Total 50 ml 1000 ml 150 ml Output Total 200 ml Balance 50 ml 1000 ml -50 ml medications Current Medications Medications Dose Ordered Sig/Lavell Route Start Time Stop Time Status Last Admin Dose Admin Diagnostic Test (Pha) 1 strip Q6HR 09/19/24 18:00 09/22/24 05:22 1 STRIP Insulin Human Regular Q6HR SC 09/19/24 18:00 09/22/24 05:24 2 UNITS Dextrose 50 ml UD PRN IV 09/19/24 14:00 Ondansetron HCl 4 mg Q4HP PRN IV 09/19/24 14:00 Docusate Sodium 100 mg BIDPRN PRN PO 09/19/24 14:00 Enoxaparin Sodium 40 mg DAILY SC 09/20/24 10:00 09/22/24 10:25 40 MG Nitroglycerin 0.4 mg Q5MINP PRN SL 09/19/24 14:00 Cefepime HCl 50 ml @ 12.5 mls/hr Q8HR IV 09/19/24 14:00 UNV Sodium Chloride 1,000 ml @ 60 mls/hr [id number] IV 09/20/24 13:45 09/21/24 00:16 60 MLS/HR Aspirin 81 mg DAILY PO 09/21/24 10:00 09/22/24 10:24 81 MG Atorvastatin Calcium 80 mg HS PO 09/20/24 22:00 09/21/24 21:17 80 MG Clopidogrel Bisulfate 75 mg DAILY PO 09/21/24 10:00 09/22/24 10:25 75 MG Finasteride 5 mg DAILY PO 09/21/24 10:00 09/22/24 10:25 5 MG Metoprolol Succinate 25 mg DAILY PO 09/21/24 10:00 09/22/24 10:25 25 MG Tamsulosin HCl 0.4 mg DAILY PO 09/21/24 10:00 09/22/24 10:25 0.4 MG Ertapenem 1 gm/ Sodium Chloride 50 ml @ 100 mls/hr DAILY IV 09/22/24 10:00 Examination: GENERAL:Abnormal, CVS:Normal, SKIN:Abnormal laboratory and microbiology Laboratory Tests 09/22/24 08:20 Test 09/22/24 08:20 Range/Units Serum Glucose 143 H 74-106 mg/dL Microbiology Date/Time Source Procedure Growth Status 09/19/24 14:43 Blood Blood Culture - Preliminary NO GROWTH AFTER 48 HOURS OF INCUBATION. Resulted 09/19/24 14:33 Voided Urine Urine Culture - Final Escherichia coli - ESBL Complete Problem List/Assessment/Plan Problem List/Assessment/Plan 84 year old male with ckd 3b presented with AMS found to have sepsis due to UTI Acute kidney injury prerenal hemodynamic ckd 3b ; Dr. Krishnan clinic sepsis due to UTI, bladder stone hepatic lesions and blastic lesions of femur concerning for metastatic CA hypercalcemia, non parathyroid related supports diagnosis of malignancy, PTH < 10 Agree with IVF hydration, renal function improved. can transition to po only if obtains enough po bladder stone seen on US kidney but no hydronephrosis indicated likely not obstructive Agree with ABX for urinary tract infection replace Mg IV zometa today defer malignancy to primary medical team [facility] is hospice candidate Plan discussed with: Spouse Dietary Evaluation Review Comments: CCHO-75, Renal specific 50g Protein Diet Expected Outcomes/Goals: prevent uremia and prevent wt loss, controlled DM Total Time (mins): 26 GUILLE DAVISON MD Sep 22, 2024 11:38
[2024-09-22] MEDS: ERTAPENEM SOD INJ 1 GM in SODIUM CHL 0.9% 50 ML IV SCH (12:06)
--- NOTE | 2024-09-22 12:09 | DVHDS2 ---
Discharge Summary Date of Admission Sep 19, 2024 at 13:53 Date of Discharge: Sep 22, 2024 Admitting Diagnosis Acute sepsis Labs/Diagnostic Data: Laboratory Results Test 09/22/24 11:48 09/22/24 08:20 09/21/24 06:41 09/21/24 05:03 POC Glucose 161 mg/dl (70-106) White Blood Count 16.2 10^3/uL (4.4-10.8) Red Blood Count 5.42 10^6/uL (4.5-5.90) Hemoglobin 15.1 g/dL (13.5-17.5) Hematocrit 46.8 % (41.0-53.0) Mean Corpuscular Volume 86.3 fL (80.0-100.0) Mean Corpuscular Hemoglobin 27.9 pg (28.0-32.0) Mean Corpuscular Hemoglobin Concent 32.3 g/dL (32.0-36.0) Red Cell Distribution Width 15.0 % (11.8-14.3) Platelet Count 328 10^3/uL (140-450) Mean Platelet Volume 9.3 fL (6.9-10.8) Neutrophils (%) (Auto) 86.9 % (37.0-80.0) Lymphocytes (%) (Auto) 6.4 % (10.0-50.0) Monocytes (%) (Auto) 5.9 % (0.0-12.0) Eosinophils (%) (Auto) 0.6 % (0.0-7.0) Basophils (%) (Auto) 0.2 % (0.0-2.0) Neutrophils # (Auto) 14.0 10 ^3/uL (1.6-8.6) Lymphocytes # (Auto) 1.0 10 ^3/uL (0.4-5.4) Monocytes # (Auto) 1.0 10 ^3/uL (0-1.3) Eosinophils # (Auto) 0.1 10 ^3/uL (0-0.8) Basophils # (Auto) 0 10 ^3/uL (0-0.2) Nucleated Red Blood Cells 0.0 % Sodium Level 139 mmol/L (136-145) Potassium Level 4.1 mmol/L (3.5-5.1) Chloride Level 107 mmol/L (98-107) Carbon Dioxide Level 23 mmol/L (20-31) Anion Gap 9 (5-15) Blood Urea Nitrogen 45 mg/dL (9-23) Creatinine 1.55 mg/dL (0.700-1.30) Glomerular Filtration Rate Calc 43 mL/min (>90) BUN/Creatinine Ratio 29.0 (10.0-20.0) Serum Glucose 143 mg/dL (74-106) Calcium Level 11.2 mg/dL (8.7-10.4) Total Bilirubin 1.8 mg/dL (0.2-1.0) Aspartate Amino Transferase (AST) 103 U/L (13-40) Alanine Aminotransferase (ALT) 27 U/L (7-40) Alkaline Phosphatase 112 U/L (46-116) Total Protein 5.7 g/dL (5.7-8.2) Albumin 3.2 g/dL (3.2-4.8) Phosphorus Level 2.9 mg/dL (2.4-5.1) Magnesium Level 1.5 mg/dL (1.6-2.6) Vitamin D 25-Hydroxy 49.3 ng/mL (30.0-100) Parathyroid Hormone (Intact) 6.7 pg/mL (18.4-80.1) Test 09/20/24 05:03 09/19/24 18:43 09/19/24 14:43 09/19/24 14:33 Random Vancomycin Level 8.0 ug/mL (5-10) Ammonia < 10 umol/L (11-32) Lactic Acid Level 2.0 mmol/L (0.4-2.0) Urine Color Yellow (Yellow) Urine Clarity Turbid (Clear) Urine pH 5.0 (5.0-9.0) Urine Specific [place] 1.014 (1.001-1.035) Urine Protein Negative (Negative) Urine Ketones Negative (Negative) Urine Blood Trace /uL (Negative) Urine Nitrite Negative (Negative) Urine Bilirubin Negative (Negative) Urine Urobilinogen Normal mg/dL (Negative) Urine Leukocyte Esterase 3+ /uL (Negative) Urine RBC 5 /hpf (0 - 3) Urine WBC Clumps Present /hpf (None Seen) Urine Microscopic WBC 161 /HPF (0-3) Urine Squamous Epithelial Cells Few /hpf (<5) Urine Bacteria Many /hpf (None Seen) Urine Hyaline Casts Few /lpf (0 - 2) Urine Mucus Few (None Seen) Urine Glucose 2+ mg/dL (Normal) Test 09/19/24 11:40 09/19/24 08:32 Troponin I High Sensitivity 9 ng/L (</=54) Erythrocyte Sedimentation Rate 20 mm/hr (0-20) B-Type Natriuretic Peptide 154.06 pg/mL (0-100) Thyroid Stimulating Hormone (TSH) 1.82 uIU/mL (0.55-4.78) Other Laboratory Tests 09/22/24 08:20 Brief Hx & Hospital Course: History of Present Illness 84-year-old male past medical history diabetes CK F hypertension hyperlipidemia UTIs PTCA he also has some liver disease per chief complaint patient is lying in bed with had overhead but his spoken his behalf but she states that she knows that patient is likely quit taking his med 2-3 weeks prior to coming to the hospital but he did decided to take the doses of medication yesterday. But she was concerned because when she got up this morning she heard the alarm going off and she went to the front door to check things out and she saw her walking around with his under wears with a walker around the car trying to open the car and get into the car she noticed that he has been confused for the last few days but today her his symptoms got worse so patient was brought in for evaluation when evaluating patient's labs and imaging vanco was given cefepime normal saline was provided white count was found to be 20.7 lactate was 3.9 troponin x3 was negative creatinine was 2.29 and 68 glucose was 301 calcium was 12.3 with a corrected calcium of 10.4 total bili was 1.6 AST was [address] scan of the brain was unremarkable chest x-ray was unremarkable patient's states patient currently is being treated for UTI he has been on antibiotics for last four days she is unsure of the name of the antibiotic. With these findings we will admit for acute sepsis workup. Course of hospitalization: Patient had MRI of the brain which found questionable metastatic lesion. Discussion was made with the patient's primary care provider, Dr. Doe, regarding plan of care. Apparently, the patient has had outpatient PET scan which revealed multiple areas of probable metastatic cancer. PSA, CEA has been negative at this time. Patient has not had colonoscopy in several years. At the current time, the patient was found to have persistent metabolic encephalopathy. Urine culture was found to be positive with ESBL. 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 Long discussion was made with the patient, daughter, regarding findings. At this time the patient was requesting to be discharged home. Patient will have midline catheter placed, with IV antibiotic therapy to be switched to Invanz while in the hospital today with continuation of therapy for a total of 14 day course including days on Meropenem. Patient will follow up with PCP this coming Wednesday regarding further plans of care regarding further diagnostic testing for primary cancer versus hospice care. All parties are agreeable with discharge plan. All questions answered. Physical examination General: Alert and Oriented x x2. Well-nourished Eyes: EOMI. Anicteric. HENT: Moist mucous membranes. Lungs: Clear to auscultation bilaterally. No accessory muscle use. Cardiovascular: Regular rate and rhythm. No murmur. No JVD. Abdomen: Soft, non-tender and non-distended. No palpable masses. Extremities: No edema. Non-tender. Skin: No rashes or lesions. Warm. Neurologic: No focal neurological deficits. CN II-XII grossly intact, but not individually tested. Psychiatric: Cooperative. Appropriate mood and affect. Total time spent with patient discussing and formulating plan of care: 35 minutes. This medical document was created using an electronic medical record system with [employer] dictation system. Although this document has been carefully reviewed, there may still be some phonetic and typographical errors. These areas are purely typographical due to imperfections of the software programs, and do not reflect any compromise in the patient's medical care. 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 HFrEF ejection fraction 20% Discharge Disposition: Home with Health Services Discharge Instruct/Medications Diet: Regular, Consistent carbohydrate, Cardiac 2g Na,low cholest Activity: No Restrictions, As Tolerated Follow Up/Referral: Follow up with PCP, Dr. Doe established appointment on Wednesday Medications: Continue home medications Invanz 1 g IV daily times a full two week course Scheduled Amlodipine Besylate (Norvasc Tablet), 5 MG PO DAILY Aspirin (Aspirin Low Dose), 81 MG PO DAILY Atorvastatin Calcium (Atorvastatin Calcium), 80 MG PO HS Clopidogrel Bisulfate (Clopidogrel), 75 MG PO DAILY Empagliflozin (Jardiance), 10 MG PO DAILY Finasteride (Finasteride), 1 TAB PO DAILY, (Reported) Gabapentin (Gabapentin), 1 CAP PO TID, (Reported) Glipizide (Glipizide), 1 TAB PO BID, (Reported) Insulin Glargine (Lantus Solostar), 20 UNIT SC BID, (Reported) Metoprolol Succinate (Toprol Xl), 25 MG PO DAILY Tamsulosin Hcl (Tamsulosin Hcl), 1 CAP PO DAILY, (Reported) Scheduled PRN Acetaminophen (Acetaminophen), 650 MG PO Q6HP PRN 36 Discharge Statement: "Patient was advised to return to the ER or call 911 if any headaches, dizziness, shortness of breath, chest pain, abdominal pain, bleeding, fevers, or worsening of medical condition. Patient was counseled about treatment plan, medications, possible side effects, patientverbalized understanding. All questions were answered to the best of my ability. This discharge took greater then 30 minutes in planning, reviewing documentation, counseling the patient, and discussing with other team members." ASSESSMENT ASSESSMENT Assessment Severe sepsis secondary to complicated cystitis with ESBL Date of Service: Sep 22, 2024 Billing Provider: AUBREE DEL CID NP Common Visit Codes: 41267-SMP/OBS DISCH DAY >30min AUBREE DEL CID NP Sep 22, 2024 12:09
[2024-09-22] MEDS ORDERED: HYDR-4902 PO (12:31)
--- NOTE | 2024-09-22 14:41 | CODING ---
Date of Service: Sep 22, 2024 Billing Provider: AUBREE DEL CID NP Common Visit Codes: PROCEDURE ONLY Secondary Visit Codes: [id number] CARE PLAN 30 MINUTES AUBREE DEL CID NP Sep 22, 2024 14:41
[2024-09-23] VITALS (7 sets, daily range): BP systolic 109–141; BP diastolic 61–77; PULSE 72–89; RESP 16–18; TEMP 36.7; O2SAT 95–98
--- NOTE | 2024-09-23 11:00 | DVHPN2 ---
Progress Note Date Seen: Sep 23, 2024 Medical Necessity Reason Pt with a Central, PICC or Fol: No Subjective Changes from previous H/P or p: No Changes Review of Systems: Deferred Objective vital signs Vital Sign Date Time Temp Pulse Resp B/P (MAP) Pulse Ox O2 Delivery O2 Flow Rate FiO2 09/23/24 09:32 72 128/77 09/23/24 08:54 36.7 09/23/24 08:11 18 98 Room Air* 0 21 Total Intake and Output 09/22/24 09/22/24 09/23/24 15:00 23:00 07:00 Intake Total 155 ml 0 ml 400 ml Output Total 300 ml Balance 155 ml 0 ml 100 ml medications Current Medications Medications Dose Ordered Sig/Lavell Route Start Time Stop Time Status Last Admin Dose Admin Diagnostic Test (Pha) 1 strip Q6HR 09/19/24 18:00 09/23/24 05:54 1 STRIP Insulin Human Regular Q6HR SC 09/19/24 18:00 09/23/24 01:15 4 UNITS Dextrose 50 ml UD PRN IV 09/19/24 14:00 Ondansetron HCl 4 mg Q4HP PRN IV 09/19/24 14:00 Docusate Sodium 100 mg BIDPRN PRN PO 09/19/24 14:00 Enoxaparin Sodium 40 mg DAILY SC 09/20/24 10:00 09/23/24 09:31 40 MG Nitroglycerin 0.4 mg Q5MINP PRN SL 09/19/24 14:00 Cefepime HCl 50 ml @ 12.5 mls/hr Q8HR IV 09/19/24 14:00 UNV Sodium Chloride 1,000 ml @ 60 mls/hr [id number] IV 09/20/24 13:45 09/23/24 09:13 60 MLS/HR Aspirin 81 mg DAILY PO 09/21/24 10:00 09/23/24 09:30 81 MG Atorvastatin Calcium 80 mg HS PO 09/20/24 22:00 09/22/24 21:48 80 MG Clopidogrel Bisulfate 75 mg DAILY PO 09/21/24 10:00 09/23/24 09:31 75 MG Finasteride 5 mg DAILY PO 09/21/24 10:00 09/23/24 09:31 5 MG Metoprolol Succinate 25 mg DAILY PO 09/21/24 10:00 09/23/24 09:32 25 MG Tamsulosin HCl 0.4 mg DAILY PO 09/21/24 10:00 09/23/24 09:31 0.4 MG Ertapenem 1 gm/ Sodium Chloride 50 ml @ 100 mls/hr DAILY IV 09/22/24 10:00 09/23/24 09:30 100 MLS/HR Examination: GENERAL:Abnormal, CVS:Normal laboratory and microbiology Laboratory Tests 09/22/24 08:20 Test 09/22/24 08:20 Range/Units Serum Glucose 143 H 74-106 mg/dL Microbiology Date/Time Source Procedure Growth Status 09/19/24 14:43 Blood Blood Culture - Preliminary NO GROWTH AFTER 72 HOURS OF INCUBATION. Resulted 09/19/24 14:33 Voided Urine Urine Culture - Final Escherichia coli - ESBL Complete Problem List/Assessment/Plan Problem List/Assessment/Plan 84 year old male with ckd 3b presented with AMS found to have sepsis due to UTI Acute kidney injury prerenal hemodynamic ckd 3b ; Dr. [facility] sepsis due to UTI, bladder stone hepatic lesions and blastic lesions of femur concerning for metastatic CA hypercalcemia, non parathyroid related supports diagnosis of malignancy, PTH < 10 family agrees to hospice defer overall management to primary team Plan discussed with: Patient Dietary Evaluation Review Comments: CCHO-75, Renal specific 50g Protein Diet Expected Outcomes/Goals: prevent uremia and prevent wt loss, controlled DM Total Time (mins): 25 GUILLE DAVISON MD Sep 23, 2024 11:00
--- NOTE | 2024-09-23 14:13 | DVHPN2 ---
Subjective The patient is seen and examined at bedside. The patient is supposed to be discharged yesterday to home with hospice however transportation was not able to set up due to his insurance, [place] cancel the transportation. Today is was reinstated and patient will be discharged home Reviewed: Care Plan, H&P, Labs, Medications Changes from previous H/P or p: No Changes General: Per HPI Eyes: No Pain, No Vision change, No Conjunctivae inflammation, No Eyelid inflammation, No Other, No Redness ENT: No Ear pain, No Ear discharge, No Nose pain, No Nose discharge, No Nose congestion, No Mouth pain, No Mouth swelling, No Throat pain, No Throat swelling, No Other Cardiovascular: No Chest Pain, No Palpitations, No Orthopnea, No Paroxysmal Noc. Dyspnea, No Edema, No Lt Headedness, No Other Respiratory: No Cough, No Dry, No Shortness of breath, No SOB with excertion, No Wheezing, No Hemoptysis, No Pleuritic Pain, No Sputum, No Other Gastrointestinal: No Nausea, No Vomiting, No Abdominal Pain, No Diarrhea, No Constipation, No Melena, No Hematochezia, No Other Genitourinary: Dysuria; No Frequency, No Incontinence, No Hematuria, No Retention, No Other Musculoskeletal: No other, No neck pain, No shoulder pain, No arm pain, No back pain, No hand pain, No leg pain, No foot pain Skin: No Rash, No Lesions, No Jaundice, No Bruising, No Other Objective Vitals Vital Signs Date Time Temp Pulse Resp B/P (MAP) Pulse Ox O2 Delivery O2 Flow Rate FiO2 09/23/24 09:32 72 128/77 09/23/24 08:54 36.7 09/23/24 08:11 18 98 Room Air* 0 21 Intake/Output Intake and Output 09/23/24 07:00 Intake Total 555 ml Output Total 300 ml Balance 255 ml Intake Oral 400 ml IV Total 155 ml Output Urine Total 300 ml # Voids 2 General Appearance: Alert, Cooperative, No acute distress, Other (Alert and oriented x2) HEENT: Atraumatic, PERRLA Lungs: Clear to auscultation, Normal air movement Cardiovascular: Normal S1, Normal S2 Neuro: Normal tone, Sensation intact, Cranial nerves 3-12 NL Skin: Dry, Intact Psych/Mental Status: Mental status NL, Mood NL Medications Current Medications Medications Dose Ordered Sig/[place]ell Route Start Time Stop Time Status Last Admin Dose Admin Diagnostic Test (Pha) 1 strip Q6HR 09/19/24 18:00 09/23/24 12:02 1 STRIP Insulin Human Regular Q6HR SC 09/19/24 18:00 09/23/24 12:03 2 UNITS Dextrose 50 ml UD PRN IV 09/19/24 14:00 Ondansetron HCl 4 mg Q4HP PRN IV 09/19/24 14:00 Docusate Sodium 100 mg BIDPRN PRN PO 09/19/24 14:00 Enoxaparin Sodium 40 mg DAILY SC 09/20/24 10:00 09/23/24 09:31 40 MG Nitroglycerin 0.4 mg Q5MINP PRN SL 09/19/24 14:00 Cefepime HCl 50 ml @ 12.5 mls/hr Q8HR IV 09/19/24 14:00 UNV Sodium Chloride 1,000 ml @ 60 mls/hr [id number] IV 09/20/24 13:45 09/23/24 09:13 60 MLS/HR Aspirin 81 mg DAILY PO 09/21/24 10:00 09/23/24 09:30 81 MG Atorvastatin Calcium 80 mg HS PO 09/20/24 22:00 09/22/24 21:48 80 MG Clopidogrel Bisulfate 75 mg DAILY PO 09/21/24 10:00 09/23/24 09:31 75 MG Finasteride 5 mg DAILY PO 09/21/24 10:00 09/23/24 09:31 5 MG Metoprolol Succinate 25 mg DAILY PO 09/21/24 10:00 09/23/24 09:32 25 MG Tamsulosin HCl 0.4 mg DAILY PO 09/21/24 10:00 09/23/24 09:31 0.4 MG Ertapenem 1 gm/ Sodium Chloride 50 ml @ 100 mls/hr DAILY IV 09/22/24 10:00 09/23/24 09:30 100 MLS/HR Laboratory Results Laboratory Tests 09/22/24 08:20 Urinalysis Test 09/19/24 14:33 Urine Color Yellow (Yellow) Urine Clarity Turbid (Clear) H Urine pH 5.0 (5.0-9.0) Urine Specific [place] 1.014 (1.001-1.035) Urine Protein Negative (Negative) Urine Ketones Negative (Negative) Urine Blood Trace /uL (Negative) H Urine Nitrite Negative (Negative) Urine Bilirubin Negative (Negative) Urine Urobilinogen Normal mg/dL (Negative) Urine Leukocyte Esterase 3+ /uL (Negative) Urine RBC 5 /hpf (0 - 3) Urine WBC Clumps Present /hpf (None Seen) Urine Microscopic WBC 161 /HPF (0-3) H Urine Squamous Epithelial Cells Few /hpf (<5) Urine Bacteria Many /hpf (None Seen) H Urine Hyaline Casts Few /lpf (0 - 2) Urine Mucus Few (None Seen) Urine Glucose 2+ mg/dL (Normal) H Microbiology Microbiology Date/Time Source Procedure Growth Status 09/19/24 14:43 Blood Blood Culture - Preliminary NO GROWTH AFTER 72 HOURS OF INCUBATION. 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 HFrEF ejection fraction 20% Plan: Continuing current management. Bone scan results reviewed. Multiple areas of probable metastatic disease. Family agree for patient to go home with home hospice. Transportation set up done today. Patient will be going home today with hospice protocol This medical document was created using an electronic medical record system with [employer] computerized dictation system. Although this document has been carefully reviewed, there may still be some phonetic and typographical errors. These areas are purely typographical due to imperfections of the software programs, and do not reflect any compromise in the patient's medical care. Plan discussed with: Patient, Other (RN) Date of Service: Sep 23, 2024 Billing Provider: LISA SOLOMON MD Common Visit Codes: 43200-OHM/OBS DISCH DAY >30min LISA SOLOMON MD Sep 23, 2024 14:12
== END 2024-09-23 15:45 | disposition hospice, home (50) | DRG 871 ==
LOC: ER 07:58 → OVERFLOW 13:53 → TELE-CENTR 17:08 → TELE-WESTW 09-22 14:39
PROVIDERS: ADMIT Nurse Practitioner Acute Care; ATTEND Nurse Practitioner Acute Care
PROC: 05HF33Z Insertion of Infusion Device into Left Cephalic Vein, Percutaneous Approach (ICD-10-PCS; principal; 2024-09-22)
PROC: B54NZZA Ultrasonography of Left Upper Extremity Veins, Guidance (ICD-10-PCS; 2024-09-22)
DX: A41.89 Other specified sepsis (principal); G93.41 Metabolic encephalopathy; I50.23 Acute on chronic systolic (congestive) heart failure; E87.21 Acute metabolic acidosis; N17.9 Acute kidney failure, unspecified; I13.0 Hypertensive heart and chronic kidney disease with heart failure and stage 1 through stage 4 chronic kidney disease, or unspecified chronic kidney disease; Z51.5 Encounter for palliative care; E78.5 Hyperlipidemia, unspecified; N18.32 Chronic kidney disease, stage 3b; N21.0 Calculus in bladder; N20.0 Calculus of kidney; K76.9 Liver disease, unspecified; E83.52 Hypercalcemia; N30.90 Cystitis, unspecified without hematuria; E11.22 Type 2 diabetes mellitus with diabetic chronic kidney disease; I25.10 Atherosclerotic heart disease of native coronary artery without angina pectoris; R65.20 Severe sepsis without septic shock; Z79.4 Long term (current) use of insulin; Z79.899 Other long term (current) drug therapy; Z79.84 Long term (current) use of oral hypoglycemic drugs; Z86.19 Personal history of other infectious and parasitic diseases; Z95.5 Presence of coronary angioplasty implant and graft
CPT/HCPCS: 36415; 70450; 70551; 71045; 76700; 78306; 80048; 80053; 80202; 81001; 82140; 82306; 82962; 83605; 83735; 83880; 83970; 84100; 84443; 84484; 85025; 85652; 87040; 87086; 87088; 87186; 93005; 96365; 97163; 99291; G0378; J0692; J1335; J1815; J2185; J3489